=== PATIENT | female | born 1945 | race African-American/Black ===

== ENCOUNTER 2019-08-26 18:09 | Inpatient (IN) | payer MEDICARE ==
[2019-08-27] MEDS ORDERED: Magnesium Hydroxide (MOM) 30 mL UDC PO PRN (04:21)
[2019-08-27] MEDS ORDERED: Fleet Enema 135 mL RC PRN (04:21)
[2019-08-27] MEDS ORDERED: Maalox 30 mL Cup PO PRN (04:30)
[2019-08-27] MEDS ORDERED: ZINC PO SCH (09:00)
[2019-08-27] MEDS ORDERED: ASCORBATE SODIUM PO SCH (09:00)
[2019-08-27] MEDS ORDERED: [UNRECOGNIZED DRUG - OTHER] PO SCH (09:00)
[2019-08-27] MEDS ORDERED: [UNRECOGNIZED DRUG - OTHER] PO SCH (09:00)
[2019-08-27] MEDS ORDERED: PROTEIN PO SCH (09:00)
[2019-08-27] MEDS ORDERED: VIT C PO SCH (09:00)
[2019-08-27] MEDS ORDERED: AMINO ACID PO SCH (09:00)
[2019-08-27] MEDS ORDERED: ASCORBIC ACID PO SCH (09:00)
[2019-08-27] MEDS: Pantoprazole 40 mg EC Tab PO SCH ×4 (09:15→17:02)
--- NOTE | 2019-08-27 10:42 | History & Physical Pre-OP ---
DATE OF SERVICE: 08/27/2019 CHIEF COMPLAINT: Agitation. HISTORY OF PRESENT ILLNESS: This is a 74-year-old -Maldivian female who was originally admitted from [facility] and transferred to [facility] Emergency Room for medical clearance. The patient was sent in to the Emergency Room due to increase in agitation and refusal of care. Once medically cleared, the patient was transferred to [facility] for further psychiatric management. REVIEW OF SYSTEMS: GENERAL: This is a 74-year-old female. No fever, no weakness. HEAD: No headache. No dizziness. EYES: No eye pain or blurring of vision. NECK: No neck pain or nuchal rigidity. CHEST: No chest pain or palpitations. PULMONARY: No coughing or shortness of breath. GASTROINTESTINAL: No abdominal pain, no constipation, no diarrhea. MUSCULOSKELETAL: No joint pain. No muscle pain. SOCIAL HISTORY: The patient lives in a retirement facility prior to hospitalization. Denies nicotine. Denies alcohol. Denies any illicit drugs. FAMILY HISTORY: Unremarkable. SURGICAL HISTORY: Unremarkable. PSYCHIATRIC HISTORY: Includes questionable depression and bipolar disorder. PAST MEDICAL HISTORY: Includes paraplegia, neuropathy, anemia, hypertension, gastroesophageal reflux disease, anemia. PHYSICAL EXAMINATION: VITAL SIGNS: Temperature 97.6, heart rate of 82, blood pressure 140/71, respirations 20, 97% on room air. GENERAL: This is a 74-year-old female that appears as stated in no acute distress. HEENT: Head is atraumatic and normocephalic. Eyes: Bilateral conjunctivae are clear. Bilateral pupils equal, round, reactive. NECK: Supple. No JVD. CARDIOVASCULAR: S1 and S2, without murmur. PULMONARY: Clear to auscultation. GASTROINTESTINAL: Soft and nontender without guarding. Positive bowel sounds. MUSCULOSKELETAL: No clubbing. No cyanosis noted. ASSESSMENT: 1. Rule out bipolar disorder. 2. Paraplegia. 3. Hypertension. 4. Neuropathy. 5. Gastroesophageal reflux disease. 6. Anemia. PLAN: We will admit the patient to Psychiatric Unit. We will follow up with a psychiatrist to monitor the patient's condition and behavior. We will do medication reconciliation accordingly. We will put the patient on fall precautions. Treatment plans were discussed with the patient's nurse. Treatment plans were discussed with Dr. Pryor. [facility]# [id number]
[2019-08-27] MEDS ORDERED: Nystatin Cream 100,000 u/gm Cream 15 gm TP PRN (17:03)
--- NOTE | 2019-08-28 01:15 | Psychiatric Evaluation ---
DATE OF SERVICE: 08/27/2019 INITIAL PSYCHIATRIC EVALUATION The patient was seen and evaluated. The patient's chart was reviewed. This is initial psychiatric evaluation covering for Dr. Carrera. CHIEF COMPLAINT: "I am not crazy." HISTORY OF PRESENT ILLNESS: This is a 74-year-old female who was brought in here from a penitentiary, medically cleared from [facility] for increased refusal of care and agitation. 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 She is reporting that she is a better doctor because she went to medical school 3 different times and then becomes noncompliant with the interview. FAMILY PSYCHIATRIC HISTORY: Denies. SOCIAL HISTORY: Currently living in a penitentiary, but unable to redirect much more information beyond that. PAST MEDICAL HISTORY: Includes paraplegia, neuropathy, anemia, hypertension, and acid reflux. ALLERGIES TO MEDICATIONS: NKDA. CURRENT MEDICATIONS: Reconciliation reviewed which includes bisacodyl, ascorbic acid, gabapentin, hydralazine, and Ativan as needed. She is refusing all medications. She reports she is not going to take any medications. Denies illicit drug use. CURRENT MENTAL STATUS EXAMINATION: Irritable, agitated, grandiose, believing that she went to medical school 4 different times, refusing to participate in interview, guarded about thought content and thought process, slightly disorganized, poor insight, judgment and impulse control. STRENGTHS: Support system. WEAKNESSES: Poor coping skills. ESTIMATED LENGTH OF STAY: Between 5-10 days. PROGNOSIS: Fair. ASSESSMENT AND PLAN: A 74-year-old female with unspecified mood disorder, rule out dementia who presents disengaged in the interview, poor historian overall. We will continue obtaining more collateral baseline information and obtaining medical records from the penitentiary prior to initiating any medications. We will admit the patient. JOB# [id number]
[2019-08-28] MEDS: Pantoprazole 40 mg EC Tab PO SCH (06:24)
[2019-08-28] MEDS ORDERED: POLYSPORIN TP SCH (09:00)
[2019-08-28] MEDS: Nystatin Cream 100,000 u/gm Cream 15 gm TP SCH (09:45)
--- NOTE | 2019-08-28 09:54 | Progress Notes ---
DATE: SUBJECTIVE: The patient was seen and evaluated. The patient's chart reviewed. The patient is wearing vinyl gloves reporting she is a germaphobe and that also president Indu is transmitting messages to her. ASSESSMENT AND PLAN: Schizophrenia, refusing medications, delusional as evident believing that Kam Griggs is sending her messages. JOB# [id number]
--- NOTE | 2019-08-28 13:26 | Internal Medicine Prog Note ---
Internal Medicine Subjective - Subjective Patient is:: awake, verbal, in bed, agitated, confused Per staff patient has:: confused, refusing care Internal Medicine Objective - Physical Exam Vitals and I&O: Vital Signs Temp 98.1 F 08/28/19 06:51 Pulse 95 08/28/19 06:51 Resp 19 08/28/19 06:51 BP 160/78 08/28/19 06:51 Pulse Ox 98 08/28/19 06:51 Intake & Output 08/27/19 08/28/19 08/28/19 18:59 06:59 18:59 Intake Total 960 180 Balance 960 180 Weight (lbs) 188 lb 8 oz Intake: Oral 960 180 Other: # Voids 3 2 # Bowel Movements 1 0 Stool Characteristics Soft Active Medications: Current Medications Al Hydrox/Mg Hydrox/Simethicone (Maalox) 30 ml PO Q4HR PRN PRN Reason: GI DISTRESS Stop: 10/26/19 04:29 Bacitracin (Baciquent) 1 appl TP DAILY [facility] Stop: 10/28/19 08:59 Bisacodyl (Dulcolax 10 Mg Supp) 10 mg RC DAILY PRN PRN Reason: Constipation Stop: 10/26/19 19:58 Docusate Sodium (Colace) 200 mg PO DAILY [facility] Stop: 10/26/19 08:59 Last Admin: 08/28/19 10:51 Dose: Not Given Gabapentin (Neurontin) 200 mg PO Q6HR [facility] Stop: 10/26/19 05:59 Last Admin: 08/28/19 12:06 Dose: Not Given Hydralazine HCl (Apresoline) 50 mg PO Q6HR PRN PRN Reason: if SBP > 160 or DBP > 100 Stop: 10/26/19 20:03 Ibuprofen (Advil) 200 mg PO Q6HR PRN PRN Reason: Pain (Mild 1-3) Stop: 10/26/19 04:20 Lorazepam (Ativan) 0.5 mg PO Q4HR PRN; Protocol PRN Reason: agitation Stop: 09/26/19 04:29 Magnesium Hydroxide (Milk Of Magnesia) 30 ml PO HS PRN PRN Reason: Constipation Stop: 10/26/19 04:20 Nortriptyline HCl (Pamelor) 25 mg PO DAILY [facility] Stop: 10/26/19 08:59 Last Admin: 08/28/19 10:51 Dose: Not Given Nystatin (Mycostatin Cream) 0 appl TP DAILY [facility]; Protocol Stop: 10/27/19 08:59 Last Admin: 08/28/19 09:45 Dose: 1 appl Pantoprazole Sodium (Protonix) 40 mg PO 0630 [facility] Stop: 10/27/19 06:29 Last Admin: 08/28/19 06:24 Dose: Not Given Sodium Phosphate (Fleet Enema) 135 ml RC Q48HR PRN PRN Reason: Constipation Stop: 10/26/19 04:20 Zolpidem Tartrate (Ambien) 5 mg PO HSMR1 PRN PRN Reason: Insomnia Stop: 10/26/19 04:29 General: demented, NAD HEENT: NC/AT, PERRLA Neck: Supple, No JVD Lungs: other (no acute respiratory distress on RA) Cardiovascular: RRR Abdomen: soft, non-tender, non-distended Internal Medicine Assmt/Plan - Assessment Assessment: Schizoprenia Delusional Paraplegia HTN Neuropathy GERD Anemia - Plan Plan: Continue current treatment plan. Continue current medications Continue to monitor VS Monitor Diet/Nutritional support. Psych management per Psychiatry. Pain Management. PT/OT prn Safety precaution, Fall precaution, frequent nursing round. Supportive care. Continue collaborating with consulting specialists, case management and nursing team
[2019-08-29] MEDS: Pantoprazole 40 mg EC Tab PO SCH (06:14)
[2019-08-29] MEDS: Nystatin Cream 100,000 u/gm Cream 15 gm TP SCH (08:56)
--- NOTE | 2019-08-29 12:29 | Internal Medicine Prog Note ---
Internal Medicine Subjective - Subjective Service Date: 08/29/19 Patient seen and examined:: with staff Patient is:: awake, verbal, in bed, agitated, confused Patient Complaints of:: other Per staff patient has:: confused, refusing care Internal Medicine Objective - Physical Exam Vitals and I&O: Vital Signs Temp 98.2 F 08/29/19 06:10 Pulse 84 08/29/19 06:10 Resp 18 08/29/19 08:00 BP 134/65 08/29/19 06:10 Pulse Ox 96 08/28/19 14:05 Intake & Output 08/28/19 08/29/19 08/29/19 18:59 06:59 18:59 Intake Total 240 Balance 240 Intake: Oral 240 Other: # Voids 4 2 # Bowel Movements 0 Stool Characteristics Soft Active Medications: Current Medications Al Hydrox/Mg Hydrox/Simethicone (Maalox) 30 ml PO Q4HR PRN PRN Reason: GI DISTRESS Stop: 10/26/19 04:29 Bacitracin (Baciquent) 1 appl TP DAILY [facility] Stop: 10/28/19 08:59 Last Admin: 08/29/19 08:56 Dose: Not Given Bisacodyl (Dulcolax 10 Mg Supp) 10 mg RC DAILY PRN PRN Reason: Constipation Stop: 10/26/19 19:58 Docusate Sodium (Colace) 200 mg PO DAILY [facility] Stop: 10/26/19 08:59 Last Admin: 08/29/19 08:56 Dose: Not Given Gabapentin (Neurontin) 200 mg PO Q6HR [facility] Stop: 10/26/19 05:59 Last Admin: 08/29/19 12:21 Dose: Not Given Hydralazine HCl (Apresoline) 50 mg PO Q6HR PRN PRN Reason: if SBP > 160 or DBP > 100 Stop: 10/26/19 20:03 Ibuprofen (Advil) 200 mg PO Q6HR PRN PRN Reason: Pain (Mild 1-3) Stop: 10/26/19 04:20 Lorazepam (Ativan) 0.5 mg PO Q4HR PRN; Protocol PRN Reason: agitation Stop: 09/26/19 04:29 Magnesium Hydroxide (Milk Of Magnesia) 30 ml PO HS PRN PRN Reason: Constipation Stop: 10/26/19 04:20 Nortriptyline HCl (Pamelor) 25 mg PO DAILY [facility] Stop: 10/26/19 08:59 Last Admin: 08/29/19 08:56 Dose: Not Given Nystatin (Mycostatin Cream) 0 appl TP DAILY [facility]; Protocol Stop: 10/27/19 08:59 Last Admin: 08/29/19 08:56 Dose: Not Given Pantoprazole Sodium (Protonix) 40 mg PO 0630 [facility] Stop: 10/27/19 06:29 Last Admin: 08/29/19 06:14 Dose: Not Given Sodium Phosphate (Fleet Enema) 135 ml RC Q48HR PRN PRN Reason: Constipation Stop: 10/26/19 04:20 Zolpidem Tartrate (Ambien) 5 mg PO HSMR1 PRN PRN Reason: Insomnia Stop: 10/26/19 04:29 Physical Exam: Patient is very agitated and confused. General: demented, NAD HEENT: NC/AT, PERRLA Neck: Supple, No JVD Lungs: other (no acute respiratory distress on RA) Cardiovascular: RRR Abdomen: soft, non-tender, non-distended Extremities: clear Neurological: no change Internal Medicine Assmt/Plan - Assessment Assessment: Increased Agitation. History of Bipolar disorder. History of Depression. History of Paraplegia. History of Neuropathy. History of Anemia. History of Gerd. - Plan Plan: Continue present meds as directed. Monitor vitals and labs. Pain management. Monitor diet and nutritional support. Fall precaution. Continue current treatment plan as ordered. Nutritional Asmnt/Malnutr-PDOC - Dietary Evaluation Malnutrition Findings (Please click <Entered> for more info): see labs.
--- NOTE | 2019-08-30 00:30 | Progress Notes ---
DATE: 08/29/2019 SUBJECTIVE: A 74-year-old female coming in from a longterm. The patient stating to me that she has been to medical school. She is a doctor, trained by the best doctors, making some odd statements, difficult to believe statements, rambling nonsensically, stating she wants to live with her family in [place], has no idea why she is here, loud, difficult to really assess. Medications were noted. ASSESSMENT: The patient seems manic, bizarre ideations, currently on a small dose of Pamelor, originally brought to the hospital because of her delusions, bizarre ideations and thinking. Apparently also agitated. I have started her on a small dose of Seroquel. JOB# [id number]
[2019-08-30] MEDS: Pantoprazole 40 mg EC Tab PO SCH (06:38)
[2019-08-30] MEDS: Nystatin Cream 100,000 u/gm Cream 15 gm TP SCH (08:50)
--- NOTE | 2019-08-30 09:25 | Progress Notes ---
DATE: 08/30/2019 SUBJECTIVE: The patient in the hospital, slept for about 6 hours, preoccupied. Poor orientation, yelling, very unpredictable. Was yelling at me yesterday, very difficult to control her thought processes, mostly isolative to self. Allowing treatment today. No overt agitation this morning. Strongly refusing medications at times. Currently on dosing of Seroquel. PLAN: We will continue to monitor. We will attempt to encourage better med compliance. We will monitor closely. JOB# [id number]
--- NOTE | 2019-08-30 16:35 | Internal Medicine Prog Note ---
Internal Medicine Subjective - Subjective Service Date: 08/30/19 Patient is:: awake, verbal, in bed, agitated, confused Patient Complaints of:: other Per staff patient has:: confused, refusing care Internal Medicine Objective - Physical Exam Vitals and I&O: Vital Signs Temp 98.1 F 08/30/19 14:00 Pulse 85 08/30/19 14:00 Resp 20 08/30/19 14:00 BP 129/67 08/30/19 14:00 Pulse Ox 99 08/30/19 14:00 Intake & Output 08/29/19 08/30/19 08/30/19 18:59 06:59 18:59 Intake Total 1100 240 Output Total 1 Balance 1100 239 Intake: Oral 1100 240 Output: Urine/Stool Mix 1 Other: # Voids 2 2 # Bowel Movements 0 0 Active Medications: Current Medications Al Hydrox/Mg Hydrox/Simethicone (Maalox) 30 ml PO Q4HR PRN PRN Reason: GI DISTRESS Stop: 10/26/19 04:29 Bacitracin (Baciquent) 1 appl TP DAILY [facility] Stop: 10/28/19 08:59 Last Admin: 08/30/19 08:49 Dose: Not Given Bisacodyl (Dulcolax 10 Mg Supp) 10 mg RC DAILY PRN PRN Reason: Constipation Stop: 10/26/19 19:58 Docusate Sodium (Colace) 200 mg PO DAILY [facility] Stop: 10/26/19 08:59 Last Admin: 08/30/19 08:49 Dose: Not Given Gabapentin (Neurontin) 200 mg PO Q6HR [facility] Stop: 10/26/19 05:59 Last Admin: 08/30/19 13:02 Dose: Not Given Hydralazine HCl (Apresoline) 50 mg PO Q6HR PRN PRN Reason: if SBP > 160 or DBP > 100 Stop: 10/26/19 20:03 Ibuprofen (Advil) 200 mg PO Q6HR PRN PRN Reason: Pain (Mild 1-3) Stop: 10/26/19 04:20 Lorazepam (Ativan) 0.5 mg PO Q4HR PRN; Protocol PRN Reason: agitation Stop: 09/26/19 04:29 Magnesium Hydroxide (Milk Of Magnesia) 30 ml PO HS PRN PRN Reason: Constipation Stop: 10/26/19 04:20 Nortriptyline HCl (Pamelor) 25 mg PO DAILY [facility] Stop: 10/26/19 08:59 Last Admin: 08/30/19 08:50 Dose: Not Given Nystatin (Mycostatin Cream) 0 appl TP DAILY [facility]; Protocol Stop: 10/27/19 08:59 Last Admin: 08/30/19 08:50 Dose: Not Given Pantoprazole Sodium (Protonix) 40 mg PO 0630 [facility] Stop: 10/27/19 06:29 Last Admin: 08/30/19 06:38 Dose: Not Given Quetiapine Fumarate (Seroquel) 25 mg PO HS [facility]; Protocol Stop: 10/28/19 20:59 Sodium Phosphate (Fleet Enema) 135 ml RC Q48HR PRN PRN Reason: If MOM & Dulcolax ineffective. Stop: 10/26/19 04:20 Zolpidem Tartrate (Ambien) 5 mg PO HSMR1 PRN PRN Reason: Insomnia Stop: 10/26/19 04:29 General: demented, NAD HEENT: NC/AT, PERRLA Neck: Supple, No JVD Lungs: other (no acute respiratory distress on RA) Cardiovascular: RRR Abdomen: soft, non-tender, non-distended Extremities: clear Neurological: no change Internal Medicine Assmt/Plan - Assessment Assessment: Schizoprenia Delusional Paraplegia HTN Neuropathy GERD Anemia - Plan Plan: Continue current treatment plan. Continue current medications Continue to monitor VS Monitor Diet/Nutritional support. Psych management per Psychiatry. Pain Management. PT/OT prn Safety precaution, Fall precaution, frequent nursing round. Supportive care. Continue collaborating with consulting specialists, case management and nursing team
[2019-08-31] MEDS: Pantoprazole 40 mg EC Tab PO SCH (06:27)
[2019-08-31] MEDS: Nystatin Cream 100,000 u/gm Cream 15 gm TP SCH (09:22)
--- NOTE | 2019-08-31 13:29 | Internal Medicine Prog Note ---
Internal Medicine Subjective - Subjective Service Date: 08/31/19 Patient seen and examined:: with staff Patient is:: awake, verbal, in bed, agitated, confused Patient Complaints of:: other Per staff patient has:: no adverse event, confused, refusing care Internal Medicine Objective - Physical Exam Vitals and I&O: Vital Signs Temp 97.9 F 08/31/19 06:14 Pulse 88 08/31/19 06:14 Resp 19 08/31/19 06:14 BP 127/65 08/31/19 06:14 Pulse Ox 97 08/31/19 06:14 Intake & Output 08/30/19 08/31/19 08/31/19 18:59 06:59 18:59 Intake Total 1200 120 Balance 1200 120 Intake: Oral 1200 120 Other: # Voids 2 3 # Bowel Movements 0 0 Active Medications: Current Medications Al Hydrox/Mg Hydrox/Simethicone (Maalox) 30 ml PO Q4HR PRN PRN Reason: GI DISTRESS Stop: 10/26/19 04:29 Bacitracin (Baciquent) 1 appl TP DAILY [facility] Stop: 10/28/19 08:59 Last Admin: 08/31/19 09:23 Dose: Not Given Bisacodyl (Dulcolax 10 Mg Supp) 10 mg RC DAILY PRN PRN Reason: Constipation Stop: 10/26/19 19:58 Docusate Sodium (Colace) 200 mg PO DAILY [facility] Stop: 10/26/19 08:59 Last Admin: 08/31/19 09:51 Dose: Not Given Gabapentin (Neurontin) 200 mg PO Q6HR [facility] Stop: 10/26/19 05:59 Last Admin: 08/31/19 12:57 Dose: Not Given Hydralazine HCl (Apresoline) 50 mg PO Q6HR PRN PRN Reason: if SBP > 160 or DBP > 100 Stop: 10/26/19 20:03 Ibuprofen (Advil) 200 mg PO Q6HR PRN PRN Reason: Pain (Mild 1-3) Stop: 10/26/19 04:20 Lorazepam (Ativan) 0.5 mg PO Q4HR PRN; Protocol PRN Reason: agitation Stop: 09/26/19 04:29 Magnesium Hydroxide (Milk Of Magnesia) 30 ml PO HS PRN PRN Reason: Constipation Stop: 10/26/19 04:20 Nortriptyline HCl (Pamelor) 25 mg PO DAILY [facility] Stop: 10/26/19 08:59 Last Admin: 08/31/19 09:51 Dose: Not Given Nystatin (Mycostatin Cream) 0 appl TP DAILY [facility]; Protocol Stop: 10/27/19 08:59 Last Admin: 08/31/19 09:22 Dose: Not Given Pantoprazole Sodium (Protonix) 40 mg PO 0630 [facility] Stop: 10/27/19 06:29 Last Admin: 08/31/19 06:27 Dose: Not Given Quetiapine Fumarate (Seroquel) 25 mg PO HS [facility]; Protocol Stop: 10/28/19 20:59 Last Admin: 08/30/19 20:54 Dose: Not Given Sodium Phosphate (Fleet Enema) 135 ml RC Q48HR PRN PRN Reason: If MOM & Dulcolax ineffective. Stop: 10/26/19 04:20 Zolpidem Tartrate (Ambien) 5 mg PO HSMR1 PRN PRN Reason: Insomnia Stop: 10/26/19 04:29 Physical Exam: Patient needs to be closely monitored, patient is very aggressive and easily frustrated. General: demented, NAD HEENT: NC/AT, PERRLA Neck: Supple, No JVD Lungs: other (no acute respiratory distress on RA) Cardiovascular: RRR Abdomen: soft, non-tender, non-distended Extremities: clear Neurological: no change Internal Medicine Assmt/Plan - Assessment Assessment: Increased Agitation. History of Bipolar disorder. History of Depression. History of Paraplegia. History of Neuropathy. History of Anemia. History of Gerd. - Plan Plan: Continue present meds as directed. Monitor vitals and labs. Pain management. Monitor diet and nutritional support. Fall precaution. Continue current treatment plan as ordered. Nutritional Asmnt/Malnutr-PDOC - Dietary Evaluation Malnutrition Findings (Please click <Entered> for more info): please see orders.
[2019-08-31] MEDS: Eucerin Cream 16 oz Jar TP SCH (18:00)
--- NOTE | 2019-08-31 22:55 | Progress Notes ---
DATE: 08/31/[address] Carrera. Case was discussed with staff of the patient, reviewed records. This is a 74-year-old female who on 08/27/2019 brought from a nursing facility, came from [facility] because of refusal of care, agitation. The patient reported that she went to medical school 3 different times. 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 She was a poor historian, extremely angry, irritable, refusing to be interviewed by the doctor. She said she lives in [place], does not need to be in this area. Does not need to be here. However, she came from a nursing facility. The patient continues to be unable to make safe plan for self-care. Continues to be agitated, yelling at times, isolating herself. She is on Seroquel, she has been refusing to take it. No side effects with the medication so far. She is also on gabapentin 200 mg every 6 hours, Ativan as needed and Pamelor 25 mg daily and Seroquel 25 mg at bedtime. No side effects with the medication. I will try to continue to encourage the patient to take medication. We will continue to work with the patient in group therapy, milieu therapy, and adjust medication as needed. JOB# [id number]
[2019-09-01] MEDS: Pantoprazole 40 mg EC Tab PO SCH ×2 (06:29→06:30)
[2019-09-01] MEDS: Eucerin Cream 16 oz Jar TP SCH ×2 (09:09→17:19)
[2019-09-01] MEDS: Nystatin Cream 100,000 u/gm Cream 15 gm TP SCH (09:09)
--- NOTE | 2019-09-01 16:20 | Progress Notes ---
DATE: 09/01/2019 Case was discussed with staff of the patient, reviewed records. The patient continues to have poor insight, continues to be unpredictable, impulsive, refusing medication, unable to tell me exact reason why she is not taking her medication. She believes she should be here as she lives in [place] and this is too far for her. Very poor insight. Unable tell me what medication she will take or why she is not taking the medication and we will try to see if she needs to be reised. We will continue outpatient group therapy, milieu therapy, and adjust medications as needed. JOB# [id number]
--- NOTE | 2019-09-01 17:25 | Internal Medicine Prog Note ---
Internal Medicine Subjective - Subjective Service Date: 09/01/19 Patient is:: awake, verbal, in bed, agitated, confused Patient Complaints of:: other Per staff patient has:: no adverse event, confused, refusing care Internal Medicine Objective - Physical Exam Vitals and I&O: Vital Signs Temp 97.7 F 09/01/19 14:00 Pulse 76 09/01/19 14:00 Resp 20 09/01/19 14:00 BP 131/78 09/01/19 14:00 Pulse Ox 98 09/01/19 14:00 Intake & Output 08/31/19 09/01/19 09/01/19 18:59 06:59 18:59 Intake Total 1080 240 Balance 1080 240 Intake: Oral 960 240 Other 120 Other: # Voids 3 2 # Bowel Movements 0 0 Active Medications: Current Medications Al Hydrox/Mg Hydrox/Simethicone (Maalox) 30 ml PO Q4HR PRN PRN Reason: GI DISTRESS Stop: 10/26/19 04:29 Bacitracin (Baciquent) 1 appl TP DAILY [facility] Stop: 10/28/19 08:59 Last Admin: 09/01/19 09:09 Dose: Not Given Bisacodyl (Dulcolax 10 Mg Supp) 10 mg RC DAILY PRN PRN Reason: Constipation Stop: 10/26/19 19:58 Docusate Sodium (Colace) 200 mg PO DAILY [facility] Stop: 10/26/19 08:59 Last Admin: 09/01/19 09:09 Dose: Not Given Gabapentin (Neurontin) 200 mg PO Q6HR [facility] Stop: 10/26/19 05:59 Last Admin: 09/01/19 17:04 Dose: Not Given Hydralazine HCl (Apresoline) 50 mg PO Q6HR PRN PRN Reason: if SBP > 160 or DBP > 100 Stop: 10/26/19 20:03 Ibuprofen (Advil) 200 mg PO Q6HR PRN PRN Reason: Pain (Mild 1-3) Stop: 10/26/19 04:20 Lorazepam (Ativan) 0.5 mg PO Q4HR PRN; Protocol PRN Reason: agitation Stop: 09/26/19 04:29 Magnesium Hydroxide (Milk Of Magnesia) 30 ml PO HS PRN PRN Reason: Constipation Stop: 10/26/19 04:20 Multi-Ingredient Cream (Eucerin Cream) 1 appl TP BID [facility] Stop: 10/30/19 16:59 Last Admin: 09/01/19 17:19 Dose: Not Given Nortriptyline HCl (Pamelor) 25 mg PO DAILY [facility] Stop: 10/26/19 08:59 Last Admin: 09/01/19 09:09 Dose: Not Given Nystatin (Mycostatin Cream) 0 appl TP DAILY [facility]; Protocol Stop: 10/27/19 08:59 Last Admin: 09/01/19 09:09 Dose: Not Given Pantoprazole Sodium (Protonix) 40 mg PO 0630 [facility] Stop: 10/27/19 06:29 Last Admin: 09/01/19 06:30 Dose: Not Given Quetiapine Fumarate (Seroquel) 25 mg PO HS [facility]; Protocol Stop: 10/28/19 20:59 Last Admin: 08/31/19 21:15 Dose: Not Given Sodium Phosphate (Fleet Enema) 135 ml RC Q48HR PRN PRN Reason: If MOM & Dulcolax ineffective. Stop: 10/26/19 04:20 Zolpidem Tartrate (Ambien) 5 mg PO HSMR1 PRN PRN Reason: Insomnia Stop: 10/26/19 04:29 General: demented, NAD HEENT: NC/AT, PERRLA Neck: Supple, No JVD Lungs: other (no acute respiratory distress on RA) Cardiovascular: RRR Abdomen: soft, non-tender, non-distended Extremities: clear Neurological: no change Internal Medicine Assmt/Plan - Assessment Assessment: Schizoprenia Delusional Paraplegia HTN Neuropathy GERD Anemia - Plan Plan: Continue current treatment plan. Continue current medications Continue to monitor VS Monitor Diet/Nutritional support. Psych management per Psychiatry. Pain Management. PT/OT prn Safety precaution, Fall precaution, frequent nursing round. Supportive care. Continue collaborating with consulting specialists, case management and nursing team Nutritional Asmnt/Malnutr-PDOC - Dietary Evaluation Malnutrition Findings (Please click <Entered> for more info): Nutritional Asmnt/Malnutrition Start: 08/31/19 14: 01 Text: Status: Complete Freq: Protocol: Document 08/31/19 14:01 CAROLYN (Rec: 08/31/19 14:09 CAROLYN [email or web address]) Nutritional Asmnt/Malnutrition Patient General Information Nutritional Screening Moderate Risk Diagnosis Psychosis Pertinent Medical Hx/Surgical Hx GERD, Paraplegia, Neuropathy, Anemia, HTN Subjective Information Pt is a 74-year-old female admitted on d/t increased agitation and refusal of care. Pt is eating an estimated 53% (average) of meals since admit date (x4 days) Per Meal/Nutrition Activity Record. Dietary is currently providing an estimated 2200 kcals and 115 gm Pro, per Pt PO intake this is providing an estimated 1166 kcals and 60gm Pro to meet 70 % kcal and 92% Pro needs. Visited pt in room after lunch , pt ate 100% of lunch and stated she was pleased with the food. She asked about salt on her tray, I provided education on her diet and why we are not putting salt on her tray. Pt stated she has not gotten her dentures yet, but the chopped texture we have been providing her is sufficient and she has no issues eating. Anthropometrics HT: 58 WT: 188 LB (85.45 kg) ABW:145 LB (65.68 kg) IBW: 130 LB (59.18 kg), IBW-7% for paraplegia BMI: 28.66 (Overweight) GI/ Skin Integrity GI: Soft, Non-tender, GERD BM: 08/30 x1 I/O: 1320/Not Noted Skin: Dryness, Area of Concern , LT lower leon x3 scabs, RT abdominal fold open area [place]: 13 Diet Order: Cardiac Estimated Energy Needs: ( Geriatric, ABW, Paraplegic) 5937-7129 kcals (25-28 kcals/ kg) 65-80g Pro (1.0-1.2 g/kg) 7248-1536 ml (25-30 ml/kg) Current Diet Order/ Nutrition Support Cardiac Pertinent Medications Dulcolax (PRN), Colace, MOM ( PRN), Protonix, Fleet Enema ( PRN) Pertinent Labs 08/26: Glucose 138, Alb 3.3, Tags 184, Chol 303, LDL 208, HDL 48 Nutritional Hx/Data Height 5 ft 8 in Height (Calculated Centimeters) 172.7 Current Weight (lbs) 188 lb Weight (Calculated Kilograms) 85.3 Weight (Calculated Grams) 77402.4 [place] Body Weight 130 LB (59.18 kg) % [place] Body Weight 145 Body Mass Index (BMI) 28.5 Weight Status Overweight GI Symptoms GI Symptoms None Last BM 08/30 x1 Skin Integrity/Comment: Skin: Dryness, Area of Concern , LT lower [place]on x3 scabs, RT abdominal fold open area [place]: 13 Current %PO Fair (50-74%) Estimated Nutritional Goals BEE in Kcals: Using Current wt Calories/Kcals/Kg 25-28 Kcals Calculated 6456-7754 Protein: Using Current wt Protein g/k.0-1.2 Protein Calculated 65-80 Fluid: ml 3493-6225 ml (25-30 ml/kg) Nutritional Problem 1. Problem Problem Altered nutrition related labs Etiology r/t pathophysiological causes Signs/Symptoms: aeb labs (08/26) Glucose 138, Alb 3.3, Tags 184, Chol 303, LDL 208, HDL 48 and Diet Rx Cardiac. Intervention/Recommendation Comments Continue Cardiac diet as tolerated. Expected Outcomes/Goals Expected Outcomes/Goals 1.PO intake to continue to meet 75% of estimated nutritional needs. 2.Monitor PO intake, wt, nutrition related labs, and skin integrity to trend WNL. 3.F/U as low risk in 7-10 days , 09/07-09/10
[2019-09-02] MEDS: Pantoprazole 40 mg EC Tab PO SCH (06:39)
[2019-09-02] MEDS: Eucerin Cream 16 oz Jar TP SCH ×2 (08:58→17:17)
[2019-09-02] MEDS: Nystatin Cream 100,000 u/gm Cream 15 gm TP SCH (08:59)
--- NOTE | 2019-09-02 14:37 | Internal Medicine Prog Note ---
Internal Medicine Subjective - Subjective Service Date: 09/02/19 Patient seen and examined:: with staff Patient is:: awake, verbal, in bed, agitated, confused Patient Complaints of:: other Per staff patient has:: no adverse event, confused, refusing care Internal Medicine Objective - Physical Exam Vitals and I&O: Vital Signs Temp 97.8 F 09/02/19 06:38 Pulse 63 09/02/19 06:38 Resp 18 09/02/19 06:38 BP 126/73 09/02/19 06:38 Pulse Ox 97 09/02/19 06:38 Intake & Output 09/01/19 09/02/19 09/02/19 18:59 06:59 18:59 Intake Total 1000 120 Balance 1000 120 Intake: Oral 1000 120 Other: # Voids 3 3 # Bowel Movements 1 Active Medications: Current Medications Al Hydrox/Mg Hydrox/Simethicone (Maalox) 30 ml PO Q4HR PRN PRN Reason: GI DISTRESS Stop: 10/26/19 04:29 Bacitracin (Baciquent) 1 appl TP DAILY [facility] Stop: 10/28/19 08:59 Last Admin: 09/02/19 08:58 Dose: Not Given Bisacodyl (Dulcolax 10 Mg Supp) 10 mg RC DAILY PRN PRN Reason: Constipation Stop: 10/26/19 19:58 Docusate Sodium (Colace) 200 mg PO DAILY [facility] Stop: 10/26/19 08:59 Last Admin: 09/02/19 08:59 Dose: Not Given Gabapentin (Neurontin) 200 mg PO Q6HR [facility] Stop: 10/26/19 05:59 Last Admin: 09/02/19 13:19 Dose: Not Given Hydralazine HCl (Apresoline) 50 mg PO Q6HR PRN PRN Reason: if SBP > 160 or DBP > 100 Stop: 10/26/19 20:03 Ibuprofen (Advil) 200 mg PO Q6HR PRN PRN Reason: Pain (Mild 1-3) Stop: 10/26/19 04:20 Lorazepam (Ativan) 0.5 mg PO Q4HR PRN; Protocol PRN Reason: agitation Stop: 09/26/19 04:29 Magnesium Hydroxide (Milk Of Magnesia) 30 ml PO HS PRN PRN Reason: Constipation Stop: 10/26/19 04:20 Multi-Ingredient Cream (Eucerin Cream) 1 appl TP BID [facility] Stop: 10/30/19 16:59 Last Admin: 09/02/19 08:58 Dose: Not Given Nortriptyline HCl (Pamelor) 25 mg PO DAILY [facility] Stop: 10/26/19 08:59 Last Admin: 09/02/19 08:59 Dose: Not Given Nystatin (Mycostatin Cream) 0 appl TP DAILY [facility]; Protocol Stop: 10/27/19 08:59 Last Admin: 09/02/19 08:59 Dose: Not Given Pantoprazole Sodium (Protonix) 40 mg PO 0630 [facility] Stop: 10/27/19 06:29 Last Admin: 09/02/19 06:39 Dose: Not Given Quetiapine Fumarate (Seroquel) 25 mg PO HS [facility]; Protocol Stop: 10/28/19 20:59 Last Admin: 09/01/19 21:26 Dose: Not Given Sodium Phosphate (Fleet Enema) 135 ml RC Q48HR PRN PRN Reason: If MOM & Dulcolax ineffective. Stop: 10/26/19 04:20 Zolpidem Tartrate (Ambien) 5 mg PO HSMR1 PRN PRN Reason: Insomnia Stop: 10/26/19 04:29 Physical Exam: Patient needs to be closely monitored, patient is very impulsive, irritable, easily frustrated, refusing to take medications. General: demented, NAD HEENT: NC/AT, PERRLA Neck: Supple, No JVD Lungs: other (no acute respiratory distress on RA) Cardiovascular: RRR Abdomen: soft, non-tender, non-distended Extremities: clear Neurological: no change Internal Medicine Assmt/Plan - Assessment Assessment: Increased Agitation. History of Bipolar disorder. History of Depression. History of Paraplegia. History of Neuropathy. History of Anemia. History of Gerd. - Plan Plan: Continue present meds as directed. Monitor vitals and labs. Pain management. Monitor diet and nutritional support. Fall precaution. Continue current treatment plan as ordered. Nutritional Asmnt/Malnutr-PDOC - Dietary Evaluation Malnutrition Findings (Please click <Entered> for more info): Nutritional Asmnt/Malnutrition Start: 08/31/19 14: 01 Text: Status: Complete Freq: Protocol: Document 08/31/19 14:01 CAROLYN (Rec: 08/31/19 14:09 CAROLYN [email or web address]) Nutritional Asmnt/Malnutrition Patient General Information Nutritional Screening Moderate Risk Diagnosis Psychosis Pertinent Medical Hx/Surgical Hx GERD, Paraplegia, Neuropathy, Anemia, HTN Subjective Information Pt is a 74-year-old female admitted on d/t increased agitation and refusal of care. Pt is eating an estimated 53% (average) of meals since admit date (x4 days) Per Meal/Nutrition Activity Record. Dietary is currently providing an estimated 2200 kcals and 115 gm Pro, per Pt PO intake this is providing an estimated 1166 kcals and 60gm Pro to meet 70 % kcal and 92% Pro needs. Visited pt in room after lunch , pt ate 100% of lunch and stated she was pleased with the food. She asked about salt on her tray, I provided education on her diet and why we are not putting salt on her tray. Pt stated she has not gotten her dentures yet, but the chopped texture we have been providing her is sufficient and she has no issues eating. Anthropometrics HT: 58 WT: 188 LB (85.45 kg) ABW:145 LB (65.68 kg) IBW: 130 LB (59.18 kg), IBW-7% for paraplegia BMI: 28.66 (Overweight) GI/ Skin Integrity GI: Soft, Non-tender, GERD BM: 08/30 x1 I/O: 1320/Not Noted Skin: Dryness, Area of Concern , LT lower [place] x3 scabs, RT abdominal fold open area [place]: 13 Diet Order: Cardiac Estimated Energy Needs: ( Geriatric, ABW, Paraplegic) 7927-6987 kcals (25-28 kcals/ kg) 65-80g Pro (1.0-1.2 g/kg) 2512-9864 ml (25-30 ml/kg) Current Diet Order/ Nutrition Support Cardiac Pertinent Medications Dulcolax (PRN), Colace, MOM ( PRN), Protonix, Fleet Enema ( PRN) Pertinent Labs 08/26: Glucose 138, Alb 3.3, Tags 184, Chol 303, LDL 208, HDL 48 Nutritional Hx/Data Height 1.73 m Height (Calculated Centimeters) 172.7 Current Weight (lbs) 85.275 kg Weight (Calculated Kilograms) 85.3 Weight (Calculated Grams) 63241.4 [place] Body Weight 130 LB (59.18 kg) % [place] Body Weight 145 Body Mass Index (BMI) 28.5 Weight Status Overweight GI Symptoms GI Symptoms None Last BM 08/30 x1 Skin Integrity/Comment: Skin: Dryness, Area of Concern , LT lower [place]on x3 scabs, RT abdominal fold open area [place]: 13 Current %PO Fair (50-74%) Estimated Nutritional Goals BEE in Kcals: Using Current wt Calories/Kcals/Kg 25-28 Kcals Calculated 9637-7292 Protein: Using Current wt Protein g/k.0-1.2 Protein Calculated 65-80 Fluid: ml 1940-0558 ml (25-30 ml/kg) Nutritional Problem 1. Problem Problem Altered nutrition related labs Etiology r/t pathophysiological causes Signs/Symptoms: aeb labs (08/26) Glucose 138, Alb 3.3, Tags 184, Chol 303, LDL 208, HDL 48 and Diet Rx Cardiac. Intervention/Recommendation Comments Continue Cardiac diet as tolerated. Expected Outcomes/Goals Expected Outcomes/Goals 1.PO intake to continue to meet 75% of estimated nutritional needs. 2.Monitor PO intake, wt, nutrition related labs, and skin integrity to trend WNL. 3.F/U as low risk in 7-10 days , 09/07-09/10
--- NOTE | 2019-09-03 03:01 | Progress Notes ---
DATE: 09/02/[address] Carrera. Case was discussed with staff of the patient, reviewed records. The staff reports she is not taking any medications. I tried to talk to her about it, she was very angry, irritable. She said she only take from her doctor, that Dr. Carrera or I are not taking care of her. She is from [place]. I tried to explain to her how she was admitted here, but she would not take it, very angry, irritable, hard to redirect and give me any other reason why she is not taking her medication. She reports she need to be with her doctor. She is sleeping well. She has been able to feed herself, isolating herself, staying in bed, angry, irritable and will continue outpatient group therapy, milieu therapy, and adjust medications as needed. JOB# [id number] RAGHU
[2019-09-03] MEDS: Pantoprazole 40 mg EC Tab PO SCH (06:11)
[2019-09-03] MEDS: Eucerin Cream 16 oz Jar TP SCH ×2 (09:13→16:48)
[2019-09-03] MEDS: Nystatin Cream 100,000 u/gm Cream 15 gm TP SCH (09:14)
--- NOTE | 2019-09-03 10:38 | Progress Notes ---
DATE: 09/03/2019 SUBJECTIVE: The patient was seen in her room. The patient is awake, alert, irritable, easily gets frustrated and guarded, episodes of anxiety, poor impulse control. Per report, the patient has been refusing to take medications. Otherwise, the patient appears to be in no acute distress. OBJECTIVE: VITAL SIGNS: Temperature 97.8, heart rate of 85, blood pressure 146/78, respirations 18, 99% on room air. HEENT: Head is atraumatic and normocephalic. Eyes: Bilateral conjunctivae are clear. Bilateral pupils are equally round and reactive. NECK: Supple. No JVD. CARDIOVASCULAR: S1 and S2, without murmur. PULMONARY: Clear to auscultation. GASTROINTESTINAL: Soft and nontender without guarding. Positive bowel sounds. MUSCULOSKELETAL: No clubbing, no cyanosis noted. ASSESSMENT: 1. Mood disorder. 2. Paraplegia. 3. Hypertension. 4. Neuropathy. 5. Gastroesophageal reflux disease. 6. Anemia. PLAN: We will continue to keep the patient inpatient to Psychiatric Unit. We will follow up with a psychiatrist to monitor the patient's condition and behavior. We will put the patient on fall precautions. Treatment plans were discussed with the patient's nurse. Treatment plans were discussed with Dr. Pryor. [facility]# [id number]
--- NOTE | 2019-09-03 22:03 | Progress Notes ---
DATE: 09/03/2019 Case was discussed with staff of the patient, reviewed records. The patient continues to refuse to participate in meaningful conversation, refuses medication, unable to tell me why she was admitted,angry agitated,claims i am not authorized to give her any medication. She said she only can take it from her doctor. She will need to leave this weekend. We will continue outpatient group therapy, milieu therapy, and adjust medication as needed. JOB# [id number] [facility]
[2019-09-04] MEDS: Pantoprazole 40 mg EC Tab PO SCH (06:48)
[2019-09-04] MEDS: Nystatin Cream 100,000 u/gm Cream 15 gm TP SCH (10:00)
[2019-09-04] MEDS: Eucerin Cream 16 oz Jar TP SCH ×2 (10:00→17:36)
--- NOTE | 2019-09-04 10:45 | Internal Medicine Prog Note ---
Internal Medicine Subjective - Subjective Patient is:: awake, verbal, in bed, agitated, confused Patient Complaints of:: other Per staff patient has:: no adverse event, confused, refusing care, other (still angry and refuses medications) Internal Medicine Objective - Physical Exam Vitals and I&O: Vital Signs Temp 98.0 F 09/04/19 06:27 Pulse 80 09/04/19 06:27 Resp 20 09/04/19 06:27 BP 143/79 09/04/19 06:27 Pulse Ox 97 09/04/19 06:27 Intake & Output 09/03/19 09/04/19 09/04/19 18:59 06:59 18:59 Intake Total 1100 240 Output Total 1 Balance 1100 239 Intake: Oral 760 240 Other 340 Output: Urine/Stool Mix 1 Other: # Voids 3 1 # Bowel Movements 0 Active Medications: Current Medications Al Hydrox/Mg Hydrox/Simethicone (Maalox) 30 ml PO Q4HR PRN PRN Reason: GI DISTRESS Stop: 10/26/19 04:29 Bacitracin (Baciquent) 1 appl TP DAILY [facility] Stop: 10/28/19 08:59 Last Admin: 09/04/19 10:00 Dose: Not Given Bisacodyl (Dulcolax 10 Mg Supp) 10 mg RC DAILY PRN PRN Reason: Constipation Stop: 10/26/19 19:58 Docusate Sodium (Colace) 200 mg PO DAILY [facility] Stop: 10/26/19 08:59 Last Admin: 09/04/19 10:00 Dose: Not Given Gabapentin (Neurontin) 200 mg PO Q6HR [facility] Stop: 10/26/19 05:59 Last Admin: 09/04/19 06:48 Dose: Not Given Hydralazine HCl (Apresoline) 50 mg PO Q6HR PRN PRN Reason: if SBP > 160 or DBP > 100 Stop: 10/26/19 20:03 Ibuprofen (Advil) 200 mg PO Q6HR PRN PRN Reason: Pain (Mild 1-3) Stop: 10/26/19 04:20 Lorazepam (Ativan) 0.5 mg PO Q4HR PRN; Protocol PRN Reason: agitation Stop: 09/26/19 04:29 Magnesium Hydroxide (Milk Of Magnesia) 30 ml PO HS PRN PRN Reason: Constipation Stop: 10/26/19 04:20 Multi-Ingredient Cream (Eucerin Cream) 1 appl TP BID [facility] Stop: 10/30/19 16:59 Last Admin: 09/04/19 10:00 Dose: Not Given Nortriptyline HCl (Pamelor) 25 mg PO DAILY [facility] Stop: 10/26/19 08:59 Last Admin: 09/04/19 10:00 Dose: Not Given Nystatin (Mycostatin Cream) 0 appl TP DAILY [facility]; Protocol Stop: 10/27/19 08:59 Last Admin: 09/04/19 10:00 Dose: Not Given Pantoprazole Sodium (Protonix) 40 mg PO 0630 [facility] Stop: 10/27/19 06:29 Last Admin: 09/04/19 06:48 Dose: Not Given Quetiapine Fumarate (Seroquel) 25 mg PO HS [facility]; Protocol Stop: 10/28/19 20:59 Last Admin: 09/03/19 21:30 Dose: Not Given Sodium Phosphate (Fleet Enema) 135 ml RC Q48HR PRN PRN Reason: If MOM & Dulcolax ineffective. Stop: 10/26/19 04:20 Zolpidem Tartrate (Ambien) 5 mg PO HSMR1 PRN PRN Reason: Insomnia Stop: 10/26/19 04:29 General: demented, NAD HEENT: NC/AT, PERRLA Neck: Supple, No JVD Lungs: other (no acute respiratory distress on RA) Cardiovascular: RRR Abdomen: soft, non-tender, non-distended Extremities: clear Neurological: no change Internal Medicine Assmt/Plan - Assessment Assessment: Schizoprenia Delusional Paraplegia HTN Neuropathy GERD Anemia - Plan Plan: Continue current treatment plan. Continue current medications Continue to monitor VS Monitor Diet/Nutritional support. Psych management per Psychiatry. Pain Management. PT/OT prn Safety precaution, Fall precaution, frequent nursing round. Supportive care. Continue collaborating with consulting specialists, case management and nursing team Nutritional Asmnt/Malnutr-PDOC - Dietary Evaluation Malnutrition Findings (Please click <Entered> for more info): Nutritional Asmnt/Malnutrition Start: 08/31/19 14: 01 Text: Status: Complete Freq: Protocol: Document 08/31/19 14:01 CAROLYN (Rec: 08/31/19 14:09 CAROLYN [email or web address]) Nutritional Asmnt/Malnutrition Patient General Information Nutritional Screening Moderate Risk Diagnosis Psychosis Pertinent Medical Hx/Surgical Hx GERD, Paraplegia, Neuropathy, Anemia, HTN Subjective Information Pt is a 74-year-old female admitted on d/t increased agitation and refusal of care. Pt is eating an estimated 53% (average) of meals since admit date (x4 days) Per Meal/Nutrition Activity Record. Dietary is currently providing an estimated 2200 kcals and 115 gm Pro, per Pt PO intake this is providing an estimated 1166 kcals and 60gm Pro to meet 70 % kcal and 92% Pro needs. Visited pt in room after lunch , pt ate 100% of lunch and stated she was pleased with the food. She asked about salt on her tray, I provided education on her diet and why we are not putting salt on her tray. Pt stated she has not gotten her dentures yet, but the chopped texture we have been providing her is sufficient and she has no issues eating. Anthropometrics HT: 58 WT: 188 LB (85.45 kg) ABW:145 LB (65.68 kg) IBW: 130 LB (59.18 kg), IBW-7% for paraplegia BMI: 28.66 (Overweight) GI/ Skin Integrity GI: Soft, Non-tender, GERD BM: 08/30 x1 I/O: 1320/Not Noted Skin: Dryness, Area of Concern , LT lower [place] x3 scabs, RT abdominal fold open area [place]: 13 Diet Order: Cardiac Estimated Energy Needs: ( Geriatric, ABW, Paraplegic) 2532-3785 kcals (25-28 kcals/ kg) 65-80g Pro (1.0-1.2 g/kg) 3225-7636 ml (25-30 ml/kg) Current Diet Order/ Nutrition Support Cardiac Pertinent Medications Dulcolax (PRN), Colace, MOM ( PRN), Protonix, Fleet Enema ( PRN) Pertinent Labs 08/26: Glucose 138, Alb 3.3, Tags 184, Chol 303, LDL 208, HDL 48 Nutritional Hx/Data Height 5 ft 8 in Height (Calculated Centimeters) 172.7 Current Weight (lbs) 188 lb Weight (Calculated Kilograms) 85.3 Weight (Calculated Grams) 34780.4 [place] Body Weight 130 LB (59.18 kg) % [place] Body Weight 145 Body Mass Index (BMI) 28.5 Weight Status Overweight GI Symptoms GI Symptoms None Last BM 08/30 x1 Skin Integrity/Comment: Skin: Dryness, Area of Concern , LT lower [place] x3 scabs, RT abdominal fold open area [place]: 13 Current %PO Fair (50-74%) Estimated Nutritional Goals BEE in Kcals: Using Current wt Calories/Kcals/Kg 25-28 Kcals Calculated 8476-6123 Protein: Using Current wt Protein g/k.0-1.2 Protein Calculated 65-80 Fluid: ml 0630-0973 ml (25-30 ml/kg) Nutritional Problem 1. Problem Problem Altered nutrition related labs Etiology r/t pathophysiological causes Signs/Symptoms: aeb labs (08/26) Glucose 138, Alb 3.3, Tags 184, Chol 303, LDL 208, HDL 48 and Diet Rx Cardiac. Intervention/Recommendation Comments Continue Cardiac diet as tolerated. Expected Outcomes/Goals Expected Outcomes/Goals 1.PO intake to continue to meet 75% of estimated nutritional needs. 2.Monitor PO intake, wt, nutrition related labs, and skin integrity to trend WNL. 3.F/U as low risk in 7-10 days , 09/07-09/10
--- NOTE | 2019-09-04 15:45 | Progress Notes ---
DATE: 09/04/2019 Case was discussed with staff of the patient, reviewed records. The patient continues to be angry, irritable, continues to redirection, isolating herself in the room, refusing medication at times. She is on Seroquel. When I talked to her, she was very angry, before I even asked for any questions she started saying that who you think I am, you have no authority to treat me. Continues to have poor insight. The patient may need to be reised she has been refusing medication more often according to the staff; however, the court is closed tomorrow. Dr. Carrera will be back on Thursday in 2 days, so he could decide when he can see her or when he can do it and we will continue outpatient group therapy, milieu therapy, adjust medication as needed. JOB# [id number] MTDD
[2019-09-05] MEDS: Pantoprazole 40 mg EC Tab PO SCH (07:06)
[2019-09-05] MEDS: Eucerin Cream 16 oz Jar TP SCH ×2 (09:26→17:29)
[2019-09-05] MEDS: Nystatin Cream 100,000 u/gm Cream 15 gm TP SCH (09:26)
--- NOTE | 2019-09-05 10:22 | Internal Medicine Prog Note ---
Internal Medicine Subjective - Subjective Service Date: 09/05/19 Patient seen and examined:: with staff Patient is:: awake, verbal, in bed, agitated, confused Patient Complaints of:: other Per staff patient has:: no adverse event, no episodes of fall, confused, refusing care, other (still angry and refuses medications) Internal Medicine Objective - Physical Exam Vitals and I&O: Vital Signs Temp 98.1 F 09/05/19 06:27 Pulse 66 09/05/19 06:27 Resp 16 09/05/19 07:51 BP 113/67 09/05/19 06:27 Pulse Ox 98 09/05/19 06:27 Intake & Output 09/04/19 09/05/19 09/05/19 18:59 06:59 18:59 Intake Total 1150 180 Balance 1150 180 Intake: Oral 1150 180 Other: # Voids 3 # Bowel Movements 0 Active Medications: Current Medications Al Hydrox/Mg Hydrox/Simethicone (Maalox) 30 ml PO Q4HR PRN PRN Reason: GI DISTRESS Stop: 10/26/19 04:29 Bacitracin (Baciquent) 1 appl TP DAILY [facility] Stop: 10/28/19 08:59 Last Admin: 09/05/19 09:26 Dose: Not Given Bisacodyl (Dulcolax 10 Mg Supp) 10 mg RC DAILY PRN PRN Reason: Constipation Stop: 10/26/19 19:58 Docusate Sodium (Colace) 200 mg PO DAILY [facility] Stop: 10/26/19 08:59 Last Admin: 09/05/19 09:25 Dose: Not Given Gabapentin (Neurontin) 200 mg PO Q6HR [facility] Stop: 10/26/19 05:59 Last Admin: 09/05/19 06:05 Dose: Not Given Hydralazine HCl (Apresoline) 50 mg PO Q6HR PRN PRN Reason: if SBP > 160 or DBP > 100 Stop: 10/26/19 20:03 Ibuprofen (Advil) 200 mg PO Q6HR PRN PRN Reason: Pain (Mild 1-3) Stop: 10/26/19 04:20 Lorazepam (Ativan) 0.5 mg PO Q4HR PRN; Protocol PRN Reason: agitation Stop: 09/26/19 04:29 Magnesium Hydroxide (Milk Of Magnesia) 30 ml PO HS PRN PRN Reason: Constipation Stop: 10/26/19 04:20 Multi-Ingredient Cream (Eucerin Cream) 1 appl TP BID [facility] Stop: 10/30/19 16:59 Last Admin: 09/05/19 09:26 Dose: Not Given Nortriptyline HCl (Pamelor) 25 mg PO DAILY [facility] Stop: 10/26/19 08:59 Last Admin: 09/05/19 09:26 Dose: Not Given Nystatin (Mycostatin Cream) 0 appl TP DAILY [facility]; Protocol Stop: 10/27/19 08:59 Last Admin: 09/05/19 09:26 Dose: Not Given Pantoprazole Sodium (Protonix) 40 mg PO 0630 [facility] Stop: 10/27/19 06:29 Last Admin: 09/05/19 07:06 Dose: Not Given Quetiapine Fumarate (Seroquel) 25 mg PO HS [facility]; Protocol Stop: 10/28/19 20:59 Last Admin: 09/04/19 21:15 Dose: Not Given Sodium Phosphate (Fleet Enema) 135 ml RC Q48HR PRN PRN Reason: If MOM & Dulcolax ineffective. Stop: 10/26/19 04:20 Zolpidem Tartrate (Ambien) 5 mg PO HSMR1 PRN PRN Reason: Insomnia Stop: 10/26/19 04:29 Physical Exam: Patient needs to be closely monitored, patient is very delusional and agitated. General: demented, NAD HEENT: NC/AT, PERRLA Neck: Supple, No JVD Lungs: other (no acute respiratory distress on RA) Cardiovascular: RRR Abdomen: soft, non-tender, non-distended Extremities: clear Neurological: no change Internal Medicine Assmt/Plan - Assessment Assessment: Schizophrenia. Delusional. Increased Agitation. History of Bipolar disorder. History of Depression. History of Paraplegia. History of Neuropathy. History of Anemia. History of Gerd. - Plan Plan: Psych management as per Psych. Continue present meds as directed. Monitor vitals and labs. Pain management. Monitor diet and nutritional support. Fall precaution. Continue current treatment plan as ordered. Nutritional Asmnt/Malnutr-PDOC - Dietary Evaluation Malnutrition Findings (Please click <Entered> for more info): Nutritional Asmnt/Malnutrition Start: 08/31/19 14: 01 Text: Status: Complete Freq: Protocol: Document 08/31/19 14:01 CAROLYN (Rec: 08/31/19 14:09 [email or web address]) Nutritional Asmnt/Malnutrition Patient General Information Nutritional Screening Moderate Risk Diagnosis Psychosis Pertinent Medical Hx/Surgical Hx GERD, Paraplegia, Neuropathy, Anemia, HTN Subjective Information Pt is a 74-year-old female admitted on d/t increased agitation and refusal of care. Pt is eating an estimated 53% (average) of meals since admit date (x4 days) Per Meal/Nutrition Activity Record. Dietary is currently providing an estimated 2200 kcals and 115 gm Pro, per Pt PO intake this is providing an estimated 1166 kcals and 60gm Pro to meet 70 % kcal and 92% Pro needs. Visited pt in room after lunch , pt ate 100% of lunch and stated she was pleased with the food. She asked about salt on her tray, I provided education on her diet and why we are not putting salt on her tray. Pt stated she has not gotten her dentures yet, but the chopped texture we have been providing her is sufficient and she has no issues eating. Anthropometrics HT: 58 WT: 188 LB (85.45 kg) ABW:145 LB (65.68 kg) IBW: 130 LB (59.18 kg), IBW-7% for paraplegia BMI: 28.66 (Overweight) GI/ Skin Integrity GI: Soft, Non-tender, GERD BM: 08/30 x1 I/O: 1320/Not Noted Skin: Dryness, Area of Concern , LT lower leon x3 scabs, RT abdominal fold open area [place]: 13 Diet Order: Cardiac Estimated Energy Needs: ( Geriatric, ABW, Paraplegic) 5204-0099 kcals (25-28 kcals/ kg) 65-80g Pro (1.0-1.2 g/kg) 6450-9744 ml (25-30 ml/kg) Current Diet Order/ Nutrition Support Cardiac Pertinent Medications Dulcolax (PRN), Colace, MOM ( PRN), Protonix, Fleet Enema ( PRN) Pertinent Labs 08/26: Glucose 138, Alb 3.3, Tags 184, Chol 303, LDL 208, HDL 48 Nutritional Hx/Data Height 1.73 m Height (Calculated Centimeters) 172.7 Current Weight (lbs) 85.275 kg Weight (Calculated Kilograms) 85.3 Weight (Calculated Grams) 13199.4 [place] Body Weight 130 LB (59.18 kg) % [place] Body Weight 145 Body Mass Index (BMI) 28.5 Weight Status Overweight GI Symptoms GI Symptoms None Last BM 08/30 x1 Skin Integrity/Comment: Skin: Dryness, Area of Concern , LT lower leon x3 scabs, RT abdominal fold open area [place]: 13 Current %PO Fair (50-74%) Estimated Nutritional Goals BEE in Kcals: Using Current wt Calories/Kcals/Kg 25-28 Kcals Calculated 4345-9808 Protein: Using Current wt Protein g/k.0-1.2 Protein Calculated 65-80 Fluid: ml 6244-1145 ml (25-30 ml/kg) Nutritional Problem 1. Problem Problem Altered nutrition related labs Etiology r/t pathophysiological causes Signs/Symptoms: aeb labs (08/26) Glucose 138, Alb 3.3, Tags 184, Chol 303, LDL 208, HDL 48 and Diet Rx Cardiac. Intervention/Recommendation Comments Continue Cardiac diet as tolerated. Expected Outcomes/Goals Expected Outcomes/Goals 1.PO intake to continue to meet 75% of estimated nutritional needs. 2.Monitor PO intake, wt, nutrition related labs, and skin integrity to trend WNL. 3.F/U as low risk in 7-10 days , 09/07-09/10
--- NOTE | 2019-09-05 10:25 | Internal Medicine Prog Note ---
Internal Medicine Subjective - Subjective Patient is:: asleep, in bed, agitated, confused Patient Complaints of:: other Per staff patient has:: no adverse event, no episodes of fall, confused, refusing care, other (still angry and refuses medications) Internal Medicine Objective - Physical Exam Vitals and I&O: Vital Signs Temp 98.1 F 09/05/19 06:27 Pulse 66 09/05/19 06:27 Resp 16 09/05/19 07:51 BP 113/67 09/05/19 06:27 Pulse Ox 98 09/05/19 06:27 Intake & Output 09/04/19 09/05/19 09/05/19 18:59 06:59 18:59 Intake Total 1150 180 Balance 1150 180 Intake: Oral 1150 180 Other: # Voids 3 # Bowel Movements 0 Active Medications: Current Medications Al Hydrox/Mg Hydrox/Simethicone (Maalox) 30 ml PO Q4HR PRN PRN Reason: GI DISTRESS Stop: 10/26/19 04:29 Bacitracin (Baciquent) 1 appl TP DAILY [facility] Stop: 10/28/19 08:59 Last Admin: 09/05/19 09:26 Dose: Not Given Bisacodyl (Dulcolax 10 Mg Supp) 10 mg RC DAILY PRN PRN Reason: Constipation Stop: 10/26/19 19:58 Docusate Sodium (Colace) 200 mg PO DAILY [facility] Stop: 10/26/19 08:59 Last Admin: 09/05/19 09:25 Dose: Not Given Gabapentin (Neurontin) 200 mg PO Q6HR [facility] Stop: 10/26/19 05:59 Last Admin: 09/05/19 06:05 Dose: Not Given Hydralazine HCl (Apresoline) 50 mg PO Q6HR PRN PRN Reason: if SBP > 160 or DBP > 100 Stop: 10/26/19 20:03 Ibuprofen (Advil) 200 mg PO Q6HR PRN PRN Reason: Pain (Mild 1-3) Stop: 10/26/19 04:20 Lorazepam (Ativan) 0.5 mg PO Q4HR PRN; Protocol PRN Reason: agitation Stop: 09/26/19 04:29 Magnesium Hydroxide (Milk Of Magnesia) 30 ml PO HS PRN PRN Reason: Constipation Stop: 10/26/19 04:20 Multi-Ingredient Cream (Eucerin Cream) 1 appl TP BID [facility] Stop: 10/30/19 16:59 Last Admin: 09/05/19 09:26 Dose: Not Given Nortriptyline HCl (Pamelor) 25 mg PO DAILY [facility] Stop: 10/26/19 08:59 Last Admin: 09/05/19 09:26 Dose: Not Given Nystatin (Mycostatin Cream) 0 appl TP DAILY [facility]; Protocol Stop: 10/27/19 08:59 Last Admin: 09/05/19 09:26 Dose: Not Given Pantoprazole Sodium (Protonix) 40 mg PO 0630 [facility] Stop: 10/27/19 06:29 Last Admin: 09/05/19 07:06 Dose: Not Given Quetiapine Fumarate (Seroquel) 25 mg PO HS [facility]; Protocol Stop: 10/28/19 20:59 Last Admin: 09/04/19 21:15 Dose: Not Given Sodium Phosphate (Fleet Enema) 135 ml RC Q48HR PRN PRN Reason: If MOM & Dulcolax ineffective. Stop: 10/26/19 04:20 Zolpidem Tartrate (Ambien) 5 mg PO HSMR1 PRN PRN Reason: Insomnia Stop: 10/26/19 04:29 General: demented, NAD HEENT: NC/AT, PERRLA Neck: Supple, No JVD Lungs: other (no acute respiratory distress on RA) Cardiovascular: RRR Abdomen: soft, non-tender, non-distended Extremities: clear Neurological: no change Internal Medicine Assmt/Plan - Assessment Assessment: Schizoprenia Delusional Paraplegia HTN Neuropathy GERD Anemia - Plan Plan: Continue current treatment plan. Continue current medications Continue to monitor VS Monitor Diet/Nutritional support. Psych management per Psychiatry. Pain Management. PT/OT prn Safety precaution, Fall precaution, frequent nursing round. Supportive care. Continue collaborating with consulting specialists, case management and nursing team Nutritional Asmnt/Malnutr-PDOC - Dietary Evaluation Malnutrition Findings (Please click <Entered> for more info): Nutritional Asmnt/Malnutrition Start: 08/31/19 14: 01 Text: Status: Complete Freq: Protocol: Document 08/31/19 14:01 CAROLYN (Rec: 08/31/19 14:09 CAROLYN [email or web address]) Nutritional Asmnt/Malnutrition Patient General Information Nutritional Screening Moderate Risk Diagnosis Psychosis Pertinent Medical Hx/Surgical Hx GERD, Paraplegia, Neuropathy, Anemia, HTN Subjective Information Pt is a 74-year-old female admitted on d/t increased agitation and refusal of care. Pt is eating an estimated 53% (average) of meals since admit date (x4 days) Per Meal/Nutrition Activity Record. Dietary is currently providing an estimated 2200 kcals and 115 gm Pro, per Pt PO intake this is providing an estimated 1166 kcals and 60gm Pro to meet 70 % kcal and 92% Pro needs. Visited pt in room after lunch , pt ate 100% of lunch and stated she was pleased with the food. She asked about salt on her tray, I provided education on her diet and why we are not putting salt on her tray. Pt stated she has not gotten her dentures yet, but the chopped texture we have been providing her is sufficient and she has no issues eating. Anthropometrics HT: 58 WT: 188 LB (85.45 kg) ABW:145 LB (65.68 kg) IBW: 130 LB (59.18 kg), IBW-7% for paraplegia BMI: 28.66 (Overweight) GI/ Skin Integrity GI: Soft, Non-tender, GERD BM: 08/30 x1 I/O: 1320/Not Noted Skin: Dryness, Area of Concern , LT lower leon x3 scabs, RT abdominal fold open area [place]: 13 Diet Order: Cardiac Estimated Energy Needs: ( Geriatric, ABW, Paraplegic) 5966-5872 kcals (25-28 kcals/ kg) 65-80g Pro (1.0-1.2 g/kg) 8833-1049 ml (25-30 ml/kg) Current Diet Order/ Nutrition Support Cardiac Pertinent Medications Dulcolax (PRN), Colace, MOM ( PRN), Protonix, Fleet Enema ( PRN) Pertinent Labs 08/26: Glucose 138, Alb 3.3, Tags 184, Chol 303, LDL 208, HDL 48 Nutritional Hx/Data Height 5 ft 8 in Height (Calculated Centimeters) 172.7 Current Weight (lbs) 188 lb Weight (Calculated Kilograms) 85.3 Weight (Calculated Grams) 50695.4 [place] Body Weight 130 LB (59.18 kg) % [place] Body Weight 145 Body Mass Index (BMI) 28.5 Weight Status Overweight GI Symptoms GI Symptoms None Last BM 08/30 x1 Skin Integrity/Comment: Skin: Dryness, Area of Concern , LT lower leon x3 scabs, RT abdominal fold open area [place]: 13 Current %PO Fair (50-74%) Estimated Nutritional Goals BEE in Kcals: Using Current wt Calories/Kcals/Kg 25-28 Kcals Calculated 4250-0587 Protein: Using Current wt Protein g/k.0-1.2 Protein Calculated 65-80 Fluid: ml 1874-1573 ml (25-30 ml/kg) Nutritional Problem 1. Problem Problem Altered nutrition related labs Etiology r/t pathophysiological causes Signs/Symptoms: aeb labs (08/26) Glucose 138, Alb 3.3, Tags 184, Chol 303, LDL 208, HDL 48 and Diet Rx Cardiac. Intervention/Recommendation Comments Continue Cardiac diet as tolerated. Expected Outcomes/Goals Expected Outcomes/Goals 1.PO intake to continue to meet 75% of estimated nutritional needs. 2.Monitor PO intake, wt, nutrition related labs, and skin integrity to trend WNL. 3.F/U as low risk in 7-10 days , 09/07-09/10
--- NOTE | 2019-09-05 14:29 | Progress Notes ---
DATE: 09/05/2019 Case was discussed with staff of the patient, reviewed records. The patient would not talk to me today. She apparently threw the food. Continues to be explosive, unpredictable, and impulsive well. We ambulate to reach her as for the last [address], [address] has been closed and tomorrow Dr. Carrera will be back and he could decide, what days she can file a reise Actually, I talked to her before that and was trying to convince her, it did not work out. However, continues to be not suitable for discharge because of her explosive behaviors. She believes she should not be here and continues to be unable to make safe plan for self-care or participate in meaningful conversation and Dr. Carrera will follow up with her. JOB# [id number] RAGHU
[2019-09-06] MEDS: Pantoprazole 40 mg EC Tab PO SCH (06:10)
[2019-09-06] MEDS: Nystatin Cream 100,000 u/gm Cream 15 gm TP SCH ×2 (08:21→09:01)
[2019-09-06] MEDS: Eucerin Cream 16 oz Jar TP SCH ×3 (08:21→16:29)
--- NOTE | 2019-09-06 21:17 | Progress Notes ---
DATE: 09/06/2019 SUBJECTIVE: The patient was seen today 09/06/2019, unruly, agitated, yelling, screaming, stating that she does not need medications. 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 Patients throwing things at nursing staff on having trouble even having a conversation with her because she is yelling, cursing. We will initiate a [place] petition. Ongoing safety concerns. JOB# [id number]
[2019-09-07] MEDS: Pantoprazole 40 mg EC Tab PO SCH (06:15)
[2019-09-07] MEDS: Eucerin Cream 16 oz Jar TP SCH ×2 (08:36→16:11)
[2019-09-07] MEDS: Nystatin Cream 100,000 u/gm Cream 15 gm TP SCH (08:38)
--- NOTE | 2019-09-07 16:17 | Internal Medicine Prog Note ---
Internal Medicine Subjective - Subjective Service Date: 09/07/19 Patient is:: asleep, in bed, agitated, confused Patient Complaints of:: other Per staff patient has:: no adverse event, no episodes of fall, confused, refusing care, other (still angry and refuses medications) Internal Medicine Objective - Physical Exam Vitals and I&O: Vital Signs Temp 98.0 F 09/07/19 14:00 Pulse 84 09/07/19 14:00 Resp 20 09/07/19 14:00 BP 123/77 09/07/19 14:00 Pulse Ox 95 09/07/19 14:00 Intake & Output 09/06/19 09/07/19 09/07/19 18:59 06:59 18:59 Intake Total 1200 120 Balance 1200 120 Intake: Oral 1200 120 Other: # Voids 4 1 # Bowel Movements 1 1 Active Medications: Current Medications Al Hydrox/Mg Hydrox/Simethicone (Maalox) 30 ml PO Q4HR PRN PRN Reason: GI DISTRESS Stop: 10/26/19 04:29 Bisacodyl (Dulcolax 10 Mg Supp) 10 mg RC DAILY PRN PRN Reason: Constipation Stop: 10/26/19 19:58 Docusate Sodium (Colace) 200 mg PO DAILY [facility] Stop: 10/26/19 08:59 Last Admin: 09/07/19 08:36 Dose: Not Given Gabapentin (Neurontin) 200 mg PO Q6HR [facility] Stop: 10/26/19 05:59 Last Admin: 09/07/19 12:00 Dose: Not Given Hydralazine HCl (Apresoline) 50 mg PO Q6HR PRN PRN Reason: if SBP > 160 or DBP > 100 Stop: 10/26/19 20:03 Ibuprofen (Advil) 200 mg PO Q6HR PRN PRN Reason: Pain (Mild 1-3) Stop: 10/26/19 04:20 Lorazepam (Ativan) 0.5 mg PO Q4HR PRN; Protocol PRN Reason: agitation Stop: 09/26/19 04:29 Magnesium Hydroxide (Milk Of Magnesia) 30 ml PO HS PRN PRN Reason: Constipation Stop: 10/26/19 04:20 Multi-Ingredient Cream (Eucerin Cream) 1 appl TP BID [facility] Stop: 10/30/19 16:59 Last Admin: 09/07/19 16:11 Dose: 1 appl Nortriptyline HCl (Pamelor) 25 mg PO DAILY [facility] Stop: 10/26/19 08:59 Last Admin: 09/07/19 08:36 Dose: Not Given Nystatin (Mycostatin Cream) 0 appl TP DAILY [facility]; Protocol Stop: 10/27/19 08:59 Last Admin: 09/07/19 08:38 Dose: 2 appl Pantoprazole Sodium (Protonix) 40 mg PO 0630 [facility] Stop: 10/27/19 06:29 Last Admin: 09/07/19 06:15 Dose: Not Given Quetiapine Fumarate (Seroquel) 25 mg PO HS [facility]; Protocol Stop: 10/28/19 20:59 Last Admin: 09/06/19 20:24 Dose: Not Given Sodium Phosphate (Fleet Enema) 135 ml RC Q48HR PRN PRN Reason: If MOM & Dulcolax ineffective. Stop: 10/26/19 04:20 Zolpidem Tartrate (Ambien) 5 mg PO HSMR1 PRN PRN Reason: Insomnia Stop: 10/26/19 04:29 General: demented, NAD HEENT: NC/AT, PERRLA Neck: Supple, No JVD Lungs: other (no acute respiratory distress on RA) Cardiovascular: RRR Abdomen: soft, non-tender, non-distended Extremities: clear Neurological: no change Internal Medicine Assmt/Plan - Assessment Assessment: Schizoprenia Delusional Paraplegia HTN Neuropathy GERD Anemia - Plan Plan: Continue current treatment plan. Continue current medications Continue to monitor VS Monitor Diet/Nutritional support. Psych management per Psychiatry. Pain Management. PT/OT prn Safety precaution, Fall precaution, frequent nursing round. Supportive care. Continue collaborating with consulting specialists, case management and nursing team Nutritional Asmnt/Malnutr-PDOC - Dietary Evaluation Malnutrition Findings (Please click <Entered> for more info): Nutritional Asmnt/Malnutrition Start: 08/31/19 14: 01 Text: Status: Complete Freq: Protocol: Document 08/31/19 14:01 CAROLYN (Rec: 08/31/19 14:09 CAROLYN [email or web address]) Nutritional Asmnt/Malnutrition Patient General Information Nutritional Screening Moderate Risk Diagnosis Psychosis Pertinent Medical Hx/Surgical Hx GERD, Paraplegia, Neuropathy, Anemia, HTN Subjective Information Pt is a 74-year-old female admitted on d/t increased agitation and refusal of care. Pt is eating an estimated 53% (average) of meals since admit date (x4 days) Per Meal/Nutrition Activity Record. Dietary is currently providing an estimated 2200 kcals and 115 gm Pro, per Pt PO intake this is providing an estimated 1166 kcals and 60gm Pro to meet 70 % kcal and 92% Pro needs. Visited pt in room after lunch , pt ate 100% of lunch and stated she was pleased with the food. She asked about salt on her tray, I provided education on her diet and why we are not putting salt on her tray. Pt stated she has not gotten her dentures yet, but the chopped texture we have been providing her is sufficient and she has no issues eating. Anthropometrics HT: 58 WT: 188 LB (85.45 kg) ABW:145 LB (65.68 kg) IBW: 130 LB (59.18 kg), IBW-7% for paraplegia BMI: 28.66 (Overweight) GI/ Skin Integrity GI: Soft, Non-tender, GERD BM: 08/30 x1 I/O: 1320/Not Noted Skin: Dryness, Area of Concern , LT lower leon x3 scabs, RT abdominal fold open area [place]: 13 Diet Order: Cardiac Estimated Energy Needs: ( Geriatric, ABW, Paraplegic) 1623-2894 kcals (25-28 kcals/ kg) 65-80g Pro (1.0-1.2 g/kg) 7007-0218 ml (25-30 ml/kg) Current Diet Order/ Nutrition Support Cardiac Pertinent Medications Dulcolax (PRN), Colace, MOM ( PRN), Protonix, Fleet Enema ( PRN) Pertinent Labs 08/26: Glucose 138, Alb 3.3, Tags 184, Chol 303, LDL 208, HDL 48 Nutritional Hx/Data Height 5 ft 8 in Height (Calculated Centimeters) 172.7 Current Weight (lbs) 188 lb Weight (Calculated Kilograms) 85.3 Weight (Calculated Grams) 82569.4 [place] Body Weight 130 LB (59.18 kg) % [place] Body Weight 145 Body Mass Index (BMI) 28.5 Weight Status Overweight GI Symptoms GI Symptoms None Last BM 08/30 x1 Skin Integrity/Comment: Skin: Dryness, Area of Concern , LT lower leon x3 scabs, RT abdominal fold open area [place]: 13 Current %PO Fair (50-74%) Estimated Nutritional Goals BEE in Kcals: Using Current wt Calories/Kcals/Kg 25-28 Kcals Calculated 5670-1731 Protein: Using Current wt Protein g/k.0-1.2 Protein Calculated 65-80 Fluid: ml 7254-6057 ml (25-30 ml/kg) Nutritional Problem 1. Problem Problem Altered nutrition related labs Etiology r/t pathophysiological causes Signs/Symptoms: aeb labs (08/26) Glucose 138, Alb 3.3, Tags 184, Chol 303, LDL 208, HDL 48 and Diet Rx Cardiac. Intervention/Recommendation Comments Continue Cardiac diet as tolerated. Expected Outcomes/Goals Expected Outcomes/Goals 1.PO intake to continue to meet 75% of estimated nutritional needs. 2.Monitor PO intake, wt, nutrition related labs, and skin integrity to trend WNL. 3.F/U as low risk in 7-10 days , 09/07-09/10
[2019-09-08] MEDS: Pantoprazole 40 mg EC Tab PO SCH (06:27)
[2019-09-08] MEDS: Eucerin Cream 16 oz Jar TP SCH ×2 (08:37→16:25)
[2019-09-08] MEDS: Nystatin Cream 100,000 u/gm Cream 15 gm TP SCH (08:38)
--- NOTE | 2019-09-08 10:08 | Progress Notes ---
DATE: 09/07/2019 The patient is irritable, upset, agitated, "get out," "my would be mad if he knew you were talking to me this way." The patient is stating she does not want to take medications or other new medications. She is fine, ongoing grandiosities, hard to approach, yelling, screaming, unruly, currently awaiting the [place] hearing. [facility]# [id number]
--- NOTE | 2019-09-08 15:05 | Progress Notes ---
DATE: 09/08/2019 The patient in hospital floor, yelling, screaming, delusional, telling me to "get out, do you know who I am, do you know who I am" just keeps asking this, very impulsive, unpredictable, unruly, aggressive, aggressive towards staff, verbally aggressive as well, currently pending a [place] hearing. Ongoing safety concerns. [facility]# [id number]
--- NOTE | 2019-09-08 15:57 | Internal Medicine Prog Note ---
Internal Medicine Subjective - Subjective Service Date: 09/08/19 Patient is:: asleep, in bed, agitated, confused Patient Complaints of:: other Per staff patient has:: no adverse event, no episodes of fall, confused, refusing care, other (still angry and refuses medications) Internal Medicine Objective - Physical Exam Vitals and I&O: Vital Signs Temp 97.8 F 09/08/19 07:02 Pulse 70 09/08/19 07:02 Resp 16 09/08/19 08:00 BP 130/72 09/08/19 07:02 Pulse Ox 97 09/08/19 07:02 Intake & Output 09/07/19 09/08/19 09/08/19 18:59 06:59 18:59 Intake Total 900 120 120 Balance 900 120 120 Intake: Oral 900 120 120 Other: # Voids 2 2 # Bowel Movements 0 1 Active Medications: Current Medications Al Hydrox/Mg Hydrox/Simethicone (Maalox) 30 ml PO Q4HR PRN PRN Reason: GI DISTRESS Stop: 10/26/19 04:29 Bisacodyl (Dulcolax 10 Mg Supp) 10 mg RC DAILY PRN PRN Reason: Constipation Stop: 10/26/19 19:58 Docusate Sodium (Colace) 200 mg PO DAILY [facility] Stop: 10/26/19 08:59 Last Admin: 09/08/19 08:37 Dose: Not Given Gabapentin (Neurontin) 200 mg PO Q6HR [facility]HEW Stop: 10/26/19 05:59 Last Admin: 09/08/19 11:28 Dose: Not Given Hydralazine HCl (Apresoline) 50 mg PO Q6HR PRN PRN Reason: if SBP > 160 or DBP > 100 Stop: 10/26/19 20:03 Ibuprofen (Advil) 200 mg PO Q6HR PRN PRN Reason: Pain (Mild 1-3) Stop: 10/26/19 04:20 Lorazepam (Ativan) 0.5 mg PO Q4HR PRN; Protocol PRN Reason: agitation Stop: 09/26/19 04:29 Magnesium Hydroxide (Milk Of Magnesia) 30 ml PO HS PRN PRN Reason: Constipation Stop: 10/26/19 04:20 Multi-Ingredient Cream (Eucerin Cream) 1 appl TP BID [facility] Stop: 10/30/19 16:59 Last Admin: 09/08/19 08:37 Dose: 1 appl Nortriptyline HCl (Pamelor) 25 mg PO DAILY [facility] Stop: 10/26/19 08:59 Last Admin: 09/08/19 08:37 Dose: Not Given Nystatin (Mycostatin Cream) 0 appl TP DAILY [facility]HEW; Protocol Stop: 10/27/19 08:59 Last Admin: 09/08/19 08:38 Dose: 1 appl Pantoprazole Sodium (Protonix) 40 mg PO 0630 MATHEW Stop: 10/27/19 06:29 Last Admin: 09/08/19 06:27 Dose: Not Given Quetiapine Fumarate (Seroquel) 25 mg PO HS MATHEW; Protocol Stop: 10/28/19 20:59 Last Admin: 09/07/19 20:45 Dose: Not Given Sodium Phosphate (Fleet Enema) 135 ml RC Q48HR PRN PRN Reason: If MOM & Dulcolax ineffective. Stop: 10/26/19 04:20 Zolpidem Tartrate (Ambien) 5 mg PO HSMR1 PRN PRN Reason: Insomnia Stop: 10/26/19 04:29 General: demented, NAD HEENT: NC/AT, PERRLA Neck: Supple, No JVD Lungs: other (no acute respiratory distress on RA) Cardiovascular: RRR Abdomen: soft, non-tender, non-distended Extremities: clear Neurological: no change Internal Medicine Assmt/Plan - Assessment Assessment: Schizoprenia Delusional Paraplegia HTN Neuropathy GERD Anemia - Plan Plan: Continue current treatment plan. Continue current medications Continue to monitor VS Monitor Diet/Nutritional support. Psych management per Psychiatry. Pain Management. PT/OT prn Safety precaution, Fall precaution, frequent nursing round. Supportive care. Continue collaborating with consulting specialists, case management and nursing team Nutritional Asmnt/Malnutr-PDOC - Dietary Evaluation Malnutrition Findings (Please click <Entered> for more info): Nutritional Asmnt/Malnutrition Start: 08/31/19 14: 01 Text: Status: Complete Freq: Protocol: Document 08/31/19 14:01 CAROLYN (Rec: 08/31/19 14:09 CAROLYN [email or web address]) Nutritional Asmnt/Malnutrition Patient General Information Nutritional Screening Moderate Risk Diagnosis Psychosis Pertinent Medical Hx/Surgical Hx GERD, Paraplegia, Neuropathy, Anemia, HTN Subjective Information Pt is a 74-year-old female admitted on d/t increased agitation and refusal of care. Pt is eating an estimated 53% (average) of meals since admit date (x4 days) Per Meal/Nutrition Activity Record. Dietary is currently providing an estimated 2200 kcals and 115 gm Pro, per Pt PO intake this is providing an estimated 1166 kcals and 60gm Pro to meet 70 % kcal and 92% Pro needs. Visited pt in room after lunch , pt ate 100% of lunch and stated she was pleased with the food. She asked about salt on her tray, I provided education on her diet and why we are not putting salt on her tray. Pt stated she has not gotten her dentures yet, but the chopped texture we have been providing her is sufficient and she has no issues eating. Anthropometrics HT: 58 WT: 188 LB (85.45 kg) ABW:145 LB (65.68 kg) IBW: 130 LB (59.18 kg), IBW-7% for paraplegia BMI: 28.66 (Overweight) GI/ Skin Integrity GI: Soft, Non-tender, GERD BM: 08/30 x1 I/O: 1320/Not Noted Skin: Dryness, Area of Concern , LT lower leon x3 scabs, RT abdominal fold open area [place]: 13 Diet Order: Cardiac Estimated Energy Needs: ( Geriatric, ABW, Paraplegic) 2640-1611 kcals (25-28 kcals/ kg) 65-80g Pro (1.0-1.2 g/kg) 2968-7132 ml (25-30 ml/kg) Current Diet Order/ Nutrition Support Cardiac Pertinent Medications Dulcolax (PRN), Colace, MOM ( PRN), Protonix, Fleet Enema ( PRN) Pertinent Labs 08/26: Glucose 138, Alb 3.3, Tags 184, Chol 303, LDL 208, HDL 48 Nutritional Hx/Data Height 5 ft 8 in Height (Calculated Centimeters) 172.7 Current Weight (lbs) 188 lb Weight (Calculated Kilograms) 85.3 Weight (Calculated Grams) 13413.4 [place] Body Weight 130 LB (59.18 kg) % [place] Body Weight 145 Body Mass Index (BMI) 28.5 Weight Status Overweight GI Symptoms GI Symptoms None Last BM 08/30 x1 Skin Integrity/Comment: Skin: Dryness, Area of Concern , LT lower [place]on x3 scabs, RT abdominal fold open area [place]: 13 Current %PO Fair (50-74%) Estimated Nutritional Goals BEE in Kcals: Using Current wt Calories/Kcals/Kg 25-28 Kcals Calculated 6287-3852 Protein: Using Current wt Protein g/k.0-1.2 Protein Calculated 65-80 Fluid: ml 8887-9969 ml (25-30 ml/kg) Nutritional Problem 1. Problem Problem Altered nutrition related labs Etiology r/t pathophysiological causes Signs/Symptoms: aeb labs (08/26) Glucose 138, Alb 3.3, Tags 184, Chol 303, LDL 208, HDL 48 and Diet Rx Cardiac. Intervention/Recommendation Comments Continue Cardiac diet as tolerated. Expected Outcomes/Goals Expected Outcomes/Goals 1.PO intake to continue to meet 75% of estimated nutritional needs. 2.Monitor PO intake, wt, nutrition related labs, and skin integrity to trend WNL. 3.F/U as low risk in 7-10 days , 09/07-09/10
[2019-09-09] MEDS: Pantoprazole 40 mg EC Tab PO SCH (06:42)
[2019-09-09] MEDS: Eucerin Cream 16 oz Jar TP SCH ×2 (09:44→18:49)
[2019-09-09] MEDS: Nystatin Cream 100,000 u/gm Cream 15 gm TP SCH (09:45)
--- NOTE | 2019-09-09 11:53 | Internal Medicine Prog Note ---
Internal Medicine Subjective - Subjective Patient is:: asleep, in bed, agitated, confused Patient Complaints of:: other Per staff patient has:: no adverse event, no episodes of fall, confused, refusing care, other (still angry and refuses medications) Internal Medicine Objective - Physical Exam Vitals and I&O: Vital Signs Temp 97.6 F 09/09/19 05:59 Pulse 68 09/09/19 05:59 Resp 16 09/09/19 08:00 BP 114/57 09/09/19 05:59 Pulse Ox 97 09/09/19 05:59 Intake & Output 09/08/19 09/09/19 09/09/19 18:59 06:59 18:59 Intake Total 1120 120 Output Total 1 Balance 1120 119 Intake: Oral 1120 120 Output: Urine/Stool Mix 1 Other: # Voids 4 1 # Bowel Movements 0 Active Medications: Current Medications Al Hydrox/Mg Hydrox/Simethicone (Maalox) 30 ml PO Q4HR PRN PRN Reason: GI DISTRESS Stop: 10/26/19 04:29 Bisacodyl (Dulcolax 10 Mg Supp) 10 mg RC DAILY PRN PRN Reason: Constipation Stop: 10/26/19 19:58 Docusate Sodium (Colace) 200 mg PO DAILY [facility] Stop: 10/26/19 08:59 Last Admin: 09/09/19 09:44 Dose: Not Given Gabapentin (Neurontin) 200 mg PO Q6HR [facility] Stop: 10/26/19 05:59 Last Admin: 09/09/19 06:18 Dose: Not Given Hydralazine HCl (Apresoline) 50 mg PO Q6HR PRN PRN Reason: if SBP > 160 or DBP > 100 Stop: 10/26/19 20:03 Ibuprofen (Advil) 200 mg PO Q6HR PRN PRN Reason: Pain (Mild 1-3) Stop: 10/26/19 04:20 Lorazepam (Ativan) 0.5 mg PO Q4HR PRN; Protocol PRN Reason: agitation Stop: 09/26/19 04:29 Magnesium Hydroxide (Milk Of Magnesia) 30 ml PO HS PRN PRN Reason: Constipation Stop: 10/26/19 04:20 Multi-Ingredient Cream (Eucerin Cream) 1 appl TP BID [facility] Stop: 03/15/20 16:59 Last Admin: 09/09/19 09:44 Dose: 1 appl Nortriptyline HCl (Pamelor) 25 mg PO DAILY [facility] Stop: 10/26/19 08:59 Last Admin: 09/09/19 09:44 Dose: Not Given Nystatin (Mycostatin Cream) 0 appl TP DAILY [facility]; Protocol Stop: 10/27/19 08:59 Last Admin: 09/09/19 09:45 Dose: 1 appl Pantoprazole Sodium (Protonix) 40 mg PO 0630 [facility] Stop: 10/27/19 06:29 Last Admin: 09/09/19 06:42 Dose: Not Given Quetiapine Fumarate (Seroquel) 25 mg PO HS [facility]; Protocol Stop: 10/28/19 20:59 Last Admin: 09/08/19 20:42 Dose: Not Given Sodium Phosphate (Fleet Enema) 135 ml RC Q48HR PRN PRN Reason: If MOM & Dulcolax ineffective. Stop: 10/26/19 04:20 Zolpidem Tartrate (Ambien) 5 mg PO HSMR1 PRN PRN Reason: Insomnia Stop: 10/26/19 04:29 General: demented, NAD HEENT: NC/AT, PERRLA Neck: Supple, No JVD Lungs: other (no acute respiratory distress on RA) Cardiovascular: RRR Abdomen: soft, non-tender, non-distended Extremities: clear Neurological: no change Internal Medicine Assmt/Plan - Assessment Assessment: Schizoprenia Delusional Paraplegia HTN Neuropathy GERD Anemia - Plan Plan: Continue current treatment plan. Continue current medications Continue to monitor VS Monitor Diet/Nutritional support. Psych management per Psychiatry. Pain Management. PT/OT prn Safety precaution, Fall precaution, frequent nursing round. Supportive care. Continue collaborating with consulting specialists, case management and nursing team Nutritional Asmnt/Malnutr-PDOC - Dietary Evaluation Malnutrition Findings (Please click <Entered> for more info): Nutritional Asmnt/Malnutrition Start: 08/31/19 14: 01 Text: Status: Complete Freq: Protocol: Document 08/31/19 14:01 CAROLYN (Rec: 08/31/19 14:09 CAROLYN [email or web address]) Nutritional Asmnt/Malnutrition Patient General Information Nutritional Screening Moderate Risk Diagnosis Psychosis Pertinent Medical Hx/Surgical Hx GERD, Paraplegia, Neuropathy, Anemia, HTN Subjective Information Pt is a 74-year-old female admitted on d/t increased agitation and refusal of care. Pt is eating an estimated 53% (average) of meals since admit date (x4 days) Per Meal/Nutrition Activity Record. Dietary is currently providing an estimated 2200 kcals and 115 gm Pro, per Pt PO intake this is providing an estimated 1166 kcals and 60gm Pro to meet 70 % kcal and 92% Pro needs. Visited pt in room after lunch , pt ate 100% of lunch and stated she was pleased with the food. She asked about salt on her tray, I provided education on her diet and why we are not putting salt on her tray. Pt stated she has not gotten her dentures yet, but the chopped texture we have been providing her is sufficient and she has no issues eating. Anthropometrics HT: 58 WT: 188 LB (85.45 kg) ABW:145 LB (65.68 kg) IBW: 130 LB (59.18 kg), IBW-7% for paraplegia BMI: 28.66 (Overweight) GI/ Skin Integrity GI: Soft, Non-tender, GERD BM: 08/30 x1 I/O: 1320/Not Noted Skin: Dryness, Area of Concern , LT lower [place] x3 scabs, RT abdominal fold open area [place]: 13 Diet Order: Cardiac Estimated Energy Needs: ( Geriatric, ABW, Paraplegic) 5257-1209 kcals (25-28 kcals/ kg) 65-80g Pro (1.0-1.2 g/kg) 5755-2308 ml (25-30 ml/kg) Current Diet Order/ Nutrition Support Cardiac Pertinent Medications Dulcolax (PRN), Colace, MOM ( PRN), Protonix, Fleet Enema ( PRN) Pertinent Labs 08/26: Glucose 138, Alb 3.3, Tags 184, Chol 303, LDL 208, HDL 48 Nutritional Hx/Data Height 5 ft 8 in Height (Calculated Centimeters) 172.7 Current Weight (lbs) 188 lb Weight (Calculated Kilograms) 85.3 Weight (Calculated Grams) 78928.4 [place] Body Weight 130 LB (59.18 kg) % [place] Body Weight 145 Body Mass Index (BMI) 28.5 Weight Status Overweight GI Symptoms GI Symptoms None Last BM 1/14 x1 Skin Integrity/Comment: Skin: Dryness, Area of Concern , LT lower [place] x3 scabs, RT abdominal fold open area [place]: 13 Current %PO Fair (50-74%) Estimated Nutritional Goals BEE in Kcals: Using Current wt Calories/Kcals/Kg 25-28 Kcals Calculated 1771-4975 Protein: Using Current wt Protein g/k.0-1.2 Protein Calculated 65-80 Fluid: ml 1552-8280 ml (25-30 ml/kg) Nutritional Problem 1. Problem Problem Altered nutrition related labs Etiology r/t pathophysiological causes Signs/Symptoms: aeb labs (08/26) Glucose 138, Alb 3.3, Tags 184, Chol 303, LDL 208, HDL 48 and Diet Rx Cardiac. Intervention/Recommendation Comments Continue Cardiac diet as tolerated. Expected Outcomes/Goals Expected Outcomes/Goals 1.PO intake to continue to meet 75% of estimated nutritional needs. 2.Monitor PO intake, wt, nutrition related labs, and skin integrity to trend WNL. 3.F/U as low risk in 7-10 days , 09/07-09/10
--- NOTE | 2019-09-09 17:58 | Progress Notes ---
DATE: 09/09/2019 SUBJECTIVE: The patient remains unruly, agitated, refusing to talk to me, still unruly with staff, yelling, screaming, ongoing agitation, unable to really place her at a lower level of care given her ongoing behaviors, very impulsive, unpredictable, refusing medications. I had to resend the [place] petition. I talked to the court today hoping for a [place] hearing this coming Thursday. JOB# [id number]
[2019-09-10] MEDS: Pantoprazole 40 mg EC Tab PO SCH (06:21)
--- NOTE | 2019-09-10 07:52 | Progress Notes ---
DATE: 09/10/2019 SUBJECTIVE: The patient was seen in the room. The patient appears to be agitated, easily gets frustrated, poor impulse control, episodes of refusing care. Otherwise, the patient appears to be in no acute distress. OBJECTIVE: VITAL SIGNS: Temperature 98.1, heart rate 70, blood pressure 144/77, respirations 20, 95% on room air. HEENT: Head is atraumatic and normocephalic. Eyes: Bilateral conjunctivae are clear. Bilateral pupils are equally round and reactive. NECK: Supple. No JVD. CARDIOVASCULAR: S1, S2, without murmur. PULMONARY: Clear to auscultation. GASTROINTESTINAL: Soft and nontender without guarding. Positive bowel sounds. MUSCULOSKELETAL: No clubbing. No cyanosis noted. ASSESSMENT: 1. Mood disorder. 2. Hypertension. 3. Paraplegia. 4. Gastroesophageal reflux disease. 5. Anemia. 6. Neuropathy. PLAN: We will continue to keep the patient to inpatient Psychiatric Unit. We will follow up with a psychiatrist to monitor the patient's condition and behavior. We will put the patient on fall precautions. Treatment plans were discussed with the patient's nurse. Treatment plans were discussed with Dr. Pryor. JOB# [id number]
[2019-09-10] MEDS: Nystatin Cream 100,000 u/gm Cream 15 gm TP SCH ×2 (09:01→09:35)
[2019-09-10] MEDS: Eucerin Cream 16 oz Jar TP SCH ×3 (09:02→17:02)
--- NOTE | 2019-09-10 20:52 | Progress Notes ---
DATE: 09/10/2019 Dr. Santos covering for ____. Also discussed the patient's condition with the staff and reviewed records and labs. "I want to get out of here." The patient is yelling and screaming and she is still easily agitated and confused. The patient is demanding to leave the hospital in spite of trying to explain to her the reason why she is in the hospital, but she is still in angry mood and is still irritable and agitated. Otherwise, the patient is taking her medications, but she is still suspicious and paranoid and yelling and screaming and she refused to take the Seroquel yesterday night. ASSESSMENT: The patient is still paranoid and confused. TREATMENT PLAN: Encouraged the patient to take Seroquel and to comply with taking her medications and the treatment in the hospital. Also, we will continue to work on her irritability and anger and mood swings and continue to follow up. JOB# [id number]
[2019-09-11] MEDS: Pantoprazole 40 mg EC Tab PO SCH (06:56)
[2019-09-11] MEDS: Eucerin Cream 16 oz Jar TP SCH ×2 (09:44→18:41)
[2019-09-11] MEDS: Nystatin Cream 100,000 u/gm Cream 15 gm TP SCH (09:44)
--- NOTE | 2019-09-11 17:58 | Progress Notes ---
DATE: SUBJECTIVE: Chart was reviewed and the patient interviewed. Also discussed the patient's condition with the staff and reviewed records and labs. The patient is still in irritable and angry mood. The patient also is still demanding and is still paranoid and easily agitated. She also still has episodes of yelling and screaming for no apparent reason. She also is demanding to be discharged while she has no safe plan for discharge or for self-care. She also is still in irritable mood. Otherwise, the patient is continuing to take medications with no side effects. ASSESSMENT: The patient is still psychotic and agitated. TREATMENT PLAN: The patient is still selective with medications and she is still according to staff refusing medications, although the patient said that she did take it. She is still in irritable and angry mood, but at the same time [place] petition hearing is pending. We will continue monitoring her behavior and her condition and work on her irritability and continue to follow up. [facility]# [id number]
--- NOTE | 2019-09-11 21:45 | Internal Medicine Prog Note ---
Internal Medicine Subjective - Subjective Patient is:: awake, verbal, in bed, agitated, confused Patient Complaints of:: other Per staff patient has:: no adverse event, no episodes of fall, confused, refusing care, other (still angry and refuses medications) Internal Medicine Objective - Physical Exam Vitals and I&O: Vital Signs Temp 99.0 F 09/11/19 20:08 Pulse 88 09/11/19 20:08 Resp 20 09/11/19 20:08 BP 124/67 09/11/19 20:08 Pulse Ox 96 09/11/19 20:08 Intake & Output 09/11/19 09/11/19 09/12/19 06:59 18:59 06:59 Intake Total 240 850 240 Balance 240 850 240 Intake: Oral 240 850 240 Other: # Voids 1 2 Active Medications: Current Medications Al Hydrox/Mg Hydrox/Simethicone (Maalox) 30 ml PO Q4HR PRN PRN Reason: GI DISTRESS Stop: 10/26/19 04:29 Bisacodyl (Dulcolax 10 Mg Supp) 10 mg RC DAILY PRN PRN Reason: Constipation Stop: 10/26/19 19:58 Docusate Sodium (Colace) 200 mg PO DAILY [facility] Stop: 10/26/19 08:59 Last Admin: 09/11/19 09:44 Dose: Not Given Gabapentin (Neurontin) 200 mg PO Q6HR [facility] Stop: 10/26/19 05:59 Last Admin: 09/11/19 18:41 Dose: Not Given Hydralazine HCl (Apresoline) 50 mg PO Q6HR PRN PRN Reason: if SBP > 160 or DBP > 100 Stop: 10/26/19 20:03 Ibuprofen (Advil) 200 mg PO Q6HR PRN PRN Reason: Pain (Mild 1-3) Stop: 10/26/19 04:20 Lorazepam (Ativan) 0.5 mg PO Q4HR PRN; Protocol PRN Reason: agitation Stop: 09/26/19 04:29 Magnesium Hydroxide (Milk Of Magnesia) 30 ml PO HS PRN PRN Reason: Constipation Stop: 10/26/19 04:20 Multi-Ingredient Cream (Eucerin Cream) 1 appl TP BID [facility] Stop: 10/30/19 16:59 Last Admin: 09/11/19 18:41 Dose: Not Given Nortriptyline HCl (Pamelor) 25 mg PO DAILY [facility] Stop: 10/26/19 08:59 Last Admin: 09/11/19 09:44 Dose: Not Given Nystatin (Mycostatin Cream) 0 appl TP DAILY [facility]; Protocol Stop: 10/27/19 08:59 Last Admin: 09/11/19 09:44 Dose: Not Given Pantoprazole Sodium (Protonix) 40 mg PO 0630 [facility] Stop: 10/27/19 06:29 Last Admin: 09/11/19 06:56 Dose: Not Given Quetiapine Fumarate (Seroquel) 25 mg PO HS [facility]; Protocol Stop: 10/28/19 20:59 Last Admin: 09/11/19 21:36 Dose: Not Given Sodium Phosphate (Fleet Enema) 135 ml RC Q48HR PRN PRN Reason: If MOM & Dulcolax ineffective. Stop: 10/26/19 04:20 Zolpidem Tartrate (Ambien) 5 mg PO HSMR1 PRN PRN Reason: Insomnia Stop: 10/26/19 04:29 General: demented, NAD HEENT: NC/AT, PERRLA Neck: Supple, No JVD Lungs: other (no acute respiratory distress on RA) Cardiovascular: RRR Abdomen: soft, non-tender, non-distended Extremities: clear Neurological: no change Other physical findings: LLE scabs, L foot wound-dressing in place. Internal Medicine Assmt/Plan - Assessment Assessment: Schizoprenia Delusional Paraplegia HTN Neuropathy GERD Anemia - Plan Plan: Continue current treatment plan. Continue current medications Continue to monitor VS Monitor Diet/Nutritional support. Psych management per Psychiatry. Pain Management. PT/OT prn Safety precaution, Fall precaution, frequent nursing round. Supportive care. Continue collaborating with consulting specialists, case management and nursing team Wound care as needed Nutritional Asmnt/Malnutr-PDOC - Dietary Evaluation Malnutrition Findings (Please click <Entered> for more info): Nutritional Asmnt/Malnutrition Start: 08/31/19 14: 01 Text: Status: Complete Freq: Protocol: Document 08/31/19 14:01 CAROLYN (Rec: 08/31/19 14:09 CAROLYN [email or web address]) Nutritional Asmnt/Malnutrition Patient General Information Nutritional Screening Moderate Risk Diagnosis Psychosis Pertinent Medical Hx/Surgical Hx GERD, Paraplegia, Neuropathy, Anemia, HTN Subjective Information Pt is a 74-year-old female admitted on d/t increased agitation and refusal of care. Pt is eating an estimated 53% (average) of meals since admit date (x4 days) Per Meal/Nutrition Activity Record. Dietary is currently providing an estimated 2200 kcals and 115 gm Pro, per Pt PO intake this is providing an estimated 1166 kcals and 60gm Pro to meet 70 % kcal and 92% Pro needs. Visited pt in room after lunch , pt ate 100% of lunch and stated she was pleased with the food. She asked about salt on her tray, I provided education on her diet and why we are not putting salt on her tray. Pt stated she has not gotten her dentures yet, but the chopped texture we have been providing her is sufficient and she has no issues eating. Anthropometrics HT: 58 WT: 188 LB (85.45 kg) ABW:145 LB (65.68 kg) IBW: 130 LB (59.18 kg), IBW-7% for paraplegia BMI: 28.66 (Overweight) GI/ Skin Integrity GI: Soft, Non-tender, GERD BM: 08/30 x1 I/O: 1320/Not Noted Skin: Dryness, Area of Concern , LT lower [place] x3 scabs, RT abdominal fold open area [place]: 13 Diet Order: Cardiac Estimated Energy Needs: ( Geriatric, ABW, Paraplegic) 0810-8238 kcals (25-28 kcals/ kg) 65-80g Pro (1.0-1.2 g/kg) 9823-0395 ml (25-30 ml/kg) Current Diet Order/ Nutrition Support Cardiac Pertinent Medications Dulcolax (PRN), Colace, MOM ( PRN), Protonix, Fleet Enema ( PRN) Pertinent Labs 08/26: Glucose 138, Alb 3.3, Tags 184, Chol 303, LDL 208, HDL 48 Nutritional Hx/Data Height 5 ft 8 in Height (Calculated Centimeters) 172.7 Current Weight (lbs) 188 lb Weight (Calculated Kilograms) 85.3 Weight (Calculated Grams) 18645.4 [place] Body Weight 130 LB (59.18 kg) % [place] Body Weight 145 Body Mass Index (BMI) 28.5 Weight Status Overweight GI Symptoms GI Symptoms None Last BM 08/30 x1 Skin Integrity/Comment: Skin: Dryness, Area of Concern , LT lower [place] x3 scabs, RT abdominal fold open area [place]: 13 Current %PO Fair (50-74%) Estimated Nutritional Goals BEE in Kcals: Using Current wt Calories/Kcals/Kg 25-28 Kcals Calculated 3416-2582 Protein: Using Current wt Protein g/k.0-1.2 Protein Calculated 65-80 Fluid: ml 9980-1609 ml (25-30 ml/kg) Nutritional Problem 1. Problem Problem Altered nutrition related labs Etiology r/t pathophysiological causes Signs/Symptoms: aeb labs (08/26) Glucose 138, Alb 3.3, Tags 184, Chol 303, LDL 208, HDL 48 and Diet Rx Cardiac. Intervention/Recommendation Comments Continue Cardiac diet as tolerated. Expected Outcomes/Goals Expected Outcomes/Goals 1.PO intake to continue to meet 75% of estimated nutritional needs. 2.Monitor PO intake, wt, nutrition related labs, and skin integrity to trend WNL. 3.F/U as low risk in 7-10 days , 09/07-09/10
[2019-09-12] MEDS: Pantoprazole 40 mg EC Tab PO SCH (06:33)
[2019-09-12] MEDS: Eucerin Cream 16 oz Jar TP SCH ×2 (08:01→17:33)
[2019-09-12] MEDS ORDERED: Haloperidol Lactate 5 mg/mL 1mL Vial IM PRN (09:56)
--- NOTE | 2019-09-12 11:01 | Internal Medicine Prog Note ---
Internal Medicine Subjective - Subjective Service Date: 09/12/19 Patient seen and examined:: with staff Patient is:: awake, verbal, agitated, confused Patient Complaints of:: other Per staff patient has:: no adverse event, no episodes of fall, confused, refusing care, other (still angry and refuses medications) Internal Medicine Objective - Physical Exam Vitals and I&O: Vital Signs Temp 98.8 F 09/12/19 05:45 Pulse 93 09/12/19 05:45 Resp 17 09/12/19 08:00 BP 130/84 09/12/19 05:45 Pulse Ox 95 09/12/19 05:45 Intake & Output 09/11/19 09/12/19 09/12/19 18:59 06:59 18:59 Intake Total 850 252 Balance 850 252 Intake: Oral 850 252 Other: # Voids 2 # Bowel Movements 1 Active Medications: Current Medications Al Hydrox/Mg Hydrox/Simethicone (Maalox) 30 ml PO Q4HR PRN PRN Reason: GI DISTRESS Stop: 10/26/19 04:29 Bisacodyl (Dulcolax 10 Mg Supp) 10 mg RC DAILY PRN PRN Reason: Constipation Stop: 10/26/19 19:58 Diphenhydramine HCl (Benadryl 50 Mg/Ml) 25 mg IM BID PRN PRN Reason: Psychosis Stop: 11/11/19 10:00 Docusate Sodium (Colace) 200 mg PO DAILY MATHEW Stop: 10/26/19 08:59 Last Admin: 09/12/19 08:01 Dose: Not Given Gabapentin (Neurontin) 200 mg PO Q6HR MTAHEW Stop: 10/26/19 05:59 Last Admin: 09/12/19 06:33 Dose: Not Given Haloperidol (Haldol) 2 mg PO BID MATHEW; Protocol Stop: 11/11/19 16:59 Haloperidol (Haldol) 2 mg PO ONCE ONE Stop: 09/12/19 11:01 Last Admin: 09/12/19 10:58 Dose: Not Given Haloperidol Lactate (Haldol) 2 mg IM BID PRN PRN Reason: Agitation Stop: 11/11/19 09:55 Hydralazine HCl (Apresoline) 50 mg PO Q6HR PRN PRN Reason: if SBP > 160 or DBP > 100 Stop: 10/26/19 20:03 Ibuprofen (Advil) 200 mg PO Q6HR PRN PRN Reason: Pain (Mild 1-3) Stop: 10/26/19 04:20 Lorazepam (Ativan) 0.5 mg PO Q4HR PRN; Protocol PRN Reason: agitation Stop: 09/26/19 04:29 Magnesium Hydroxide (Milk Of Magnesia) 30 ml PO HS PRN PRN Reason: Constipation Stop: 10/26/19 04:20 Multi-Ingredient Cream (Eucerin Cream) 1 appl TP BID [facility] Stop: 10/30/19 16:59 Last Admin: 09/12/19 08:01 Dose: Not Given Nortriptyline HCl (Pamelor) 25 mg PO DAILY [facility] Stop: 10/26/19 08:59 Last Admin: 09/12/19 08:01 Dose: Not Given Pantoprazole Sodium (Protonix) 40 mg PO 0630 [facility] Stop: 10/27/19 06:29 Last Admin: 09/12/19 06:33 Dose: Not Given Sodium Phosphate (Fleet Enema) 135 ml RC Q48HR PRN PRN Reason: If MOM & Dulcolax ineffective. Stop: 10/26/19 04:20 Zolpidem Tartrate (Ambien) 5 mg PO HSMR1 PRN PRN Reason: Insomnia Stop: 10/26/19 04:29 Physical Exam: Patient needs to be closely monitored, patient is very paranoid, agitated, still screaming and yelling. General: demented, NAD HEENT: NC/AT, PERRLA Neck: Supple, No JVD Lungs: other (no acute respiratory distress on RA) Cardiovascular: RRR Abdomen: soft, non-tender, non-distended Extremities: clear Neurological: no change Internal Medicine Assmt/Plan - Assessment Assessment: Paranoia. Schizophrenia. Delusional. Increased Agitation. History of Bipolar disorder. History of Depression. History of Paraplegia. History of Neuropathy. History of Anemia. History of Gerd. - Plan Plan: Psych management as per Psych. Continue present meds as directed. Monitor vitals and labs. Pain management. Monitor diet and nutritional support. Fall precaution. Continue current treatment plan as ordered. Nutritional Asmnt/Malnutr-PDOC - Dietary Evaluation Malnutrition Findings (Please click <Entered> for more info): Nutritional Asmnt/Malnutrition Start: 08/31/19 14: 01 Text: Status: Complete Freq: Protocol: Document 08/31/19 14:01 CAROLYN (Rec: 08/31/19 14:09 CAROLYN [id number]) Nutritional Asmnt/Malnutrition Patient General Information Nutritional Screening Moderate Risk Diagnosis Psychosis Pertinent Medical Hx/Surgical Hx GERD, Paraplegia, Neuropathy, Anemia, HTN Subjective Information Pt is a 74-year-old female admitted on d/t increased agitation and refusal of care. Pt is eating an estimated 53% (average) of meals since admit date (x4 days) Per Meal/Nutrition Activity Record. Dietary is currently providing an estimated 2200 kcals and 115 gm Pro, per Pt PO intake this is providing an estimated 1166 kcals and 60gm Pro to meet 70 % kcal and 92% Pro needs. Visited pt in room after lunch , pt ate 100% of lunch and stated she was pleased with the food. She asked about salt on her tray, I provided education on her diet and why we are not putting salt on her tray. Pt stated she has not gotten her dentures yet, but the chopped texture we have been providing her is sufficient and she has no issues eating. Anthropometrics HT: 58 WT: 188 LB (85.45 kg) ABW:145 LB (65.68 kg) IBW: 130 LB (59.18 kg), IBW-7% for paraplegia BMI: 28.66 (Overweight) GI/ Skin Integrity GI: Soft, Non-tender, GERD BM: 08/30 x1 I/O: 1320/Not Noted Skin: Dryness, Area of Concern , LT lower leon x3 scabs, RT abdominal fold open area [place]: 13 Diet Order: Cardiac Estimated Energy Needs: ( Geriatric, ABW, Paraplegic) 4775-7654 kcals (25-28 kcals/ kg) 65-80g Pro (1.0-1.2 g/kg) 9428-7434 ml (25-30 ml/kg) Current Diet Order/ Nutrition Support Cardiac Pertinent Medications Dulcolax (PRN), Colace, MOM ( PRN), Protonix, Fleet Enema ( PRN) Pertinent Labs 08/26: Glucose 138, Alb 3.3, Tags 184, Chol 303, LDL 208, HDL 48 Nutritional Hx/Data Height 1.73 m Height (Calculated Centimeters) 172.7 Current Weight (lbs) 85.275 kg Weight (Calculated Kilograms) 85.3 Weight (Calculated Grams) 70452.4 [place] Body Weight 130 LB (59.18 kg) % [place] Body Weight 145 Body Mass Index (BMI) 28.5 Weight Status Overweight GI Symptoms GI Symptoms None Last BM 08/30 x1 Skin Integrity/Comment: Skin: Dryness, Area of Concern , LT lower leon x3 scabs, RT abdominal fold open area [place]: 13 Current %PO Fair (50-74%) Estimated Nutritional Goals BEE in Kcals: Using Current wt Calories/Kcals/Kg 25-28 Kcals Calculated 3188-2778 Protein: Using Current wt Protein g/k.0-1.2 Protein Calculated 65-80 Fluid: ml 4025-4977 ml (25-30 ml/kg) Nutritional Problem 1. Problem Problem Altered nutrition related labs Etiology r/t pathophysiological causes Signs/Symptoms: aeb labs (08/26) Glucose 138, Alb 3.3, Tags 184, Chol 303, LDL 208, HDL 48 and Diet Rx Cardiac. Intervention/Recommendation Comments Continue Cardiac diet as tolerated. Expected Outcomes/Goals Expected Outcomes/Goals 1.PO intake to continue to meet 75% of estimated nutritional needs. 2.Monitor PO intake, wt, nutrition related labs, and skin integrity to trend WNL. 3.F/U as low risk in 7-10 days , 09/07-09/10
[2019-09-13] MEDS: Pantoprazole 40 mg EC Tab PO SCH (06:31)
[2019-09-13] MEDS: Eucerin Cream 16 oz Jar TP SCH ×2 (09:25→16:11)
--- NOTE | 2019-09-13 12:32 | Progress Notes ---
DATE: 09/12/2019 The patient in hospital, unruly, agitated, cursing, yelling, using expletives, very verbally aggressive, highly impulsive, unpredictable, refusing treatment. Riese was upheld today. We will initiate Haldol, transition to Haldol Decanoate. We have not been able to place her because of her behaviors. JOB# [id number]
--- NOTE | 2019-09-13 17:26 | Internal Medicine Prog Note ---
Internal Medicine Subjective - Subjective Service Date: 09/13/19 Patient is:: awake, verbal, agitated, confused Patient Complaints of:: other Per staff patient has:: no adverse event, no episodes of fall, confused, refusing care, other (still angry and refuses medications) Internal Medicine Objective - Physical Exam Vitals and I&O: Vital Signs Temp 97.6 F 09/13/19 14:00 Pulse 87 09/13/19 14:00 Resp 20 09/13/19 14:00 BP 103/76 09/13/19 14:00 Pulse Ox 97 09/13/19 14:00 Intake & Output 09/12/19 09/13/19 09/13/19 18:59 06:59 18:59 Intake Total 800 240 Output Total 1 Balance 800 239 Intake: Oral 800 240 Output: Urine/Stool Mix 1 Other: # Voids 1 Active Medications: Current Medications Al Hydrox/Mg Hydrox/Simethicone (Maalox) 30 ml PO Q4HR PRN PRN Reason: GI DISTRESS Stop: 10/26/19 04:29 Bisacodyl (Dulcolax 10 Mg Supp) 10 mg RC DAILY PRN PRN Reason: Constipation Stop: 10/26/19 19:58 Diphenhydramine HCl (Benadryl 50 Mg/Ml) 25 mg IM BID PRN PRN Reason: Psychosis Stop: 11/11/19 10:00 Last Admin: 09/12/19 11:21 Dose: 25 mg Docusate Sodium (Colace) 200 mg PO DAILY MATHEW Stop: 10/26/19 08:59 Last Admin: 09/13/19 09:25 Dose: Not Given Gabapentin (Neurontin) 200 mg PO Q6HR MATHEW Stop: 10/26/19 05:59 Last Admin: 09/13/19 11:07 Dose: Not Given Haloperidol (Haldol) 3 mg PO BID MATHEW; Protocol Stop: 11/12/19 16:59 Last Admin: 09/13/19 16:16 Dose: 3 mg Haloperidol Lactate (Haldol) 2 mg IM BID PRN PRN Reason: Agitation if refused po haldol Stop: 11/11/19 09:55 Last Admin: 09/12/19 11:21 Dose: 2 mg Hydralazine HCl (Apresoline) 50 mg PO Q6HR PRN PRN Reason: if SBP > 160 or DBP > 100 Stop: 10/26/19 20:03 Ibuprofen (Advil) 200 mg PO Q6HR PRN PRN Reason: Pain (Mild 1-3) Stop: 10/26/19 04:20 Lorazepam (Ativan) 0.5 mg PO Q4HR PRN; Protocol PRN Reason: agitation Stop: 09/26/19 04:29 Magnesium Hydroxide (Milk Of Magnesia) 30 ml PO HS PRN PRN Reason: Constipation Stop: 10/26/19 04:20 Multi-Ingredient Cream (Eucerin Cream) 1 appl TP BID [facility] Stop: 10/30/19 16:59 Last Admin: 09/13/19 16:11 Dose: Not Given Nortriptyline HCl (Pamelor) 25 mg PO DAILY [facility] Stop: 10/26/19 08:59 Last Admin: 09/13/19 09:25 Dose: Not Given Pantoprazole Sodium (Protonix) 40 mg PO 0630 [facility] Stop: 10/27/19 06:29 Last Admin: 09/13/19 06:31 Dose: Not Given Sodium Phosphate (Fleet Enema) 135 ml RC Q48HR PRN PRN Reason: If MOM & Dulcolax ineffective. Stop: 10/26/19 04:20 Zolpidem Tartrate (Ambien) 5 mg PO HSMR1 PRN PRN Reason: Insomnia Stop: 10/26/19 04:29 General: demented, NAD HEENT: NC/AT, PERRLA Neck: Supple, No JVD Lungs: other (no acute respiratory distress on RA) Cardiovascular: RRR Abdomen: soft, non-tender, non-distended Extremities: clear Neurological: no change Internal Medicine Assmt/Plan - Assessment Assessment: Schizoprenia Delusional Paraplegia HTN Neuropathy GERD Anemia - Plan Plan: Continue current treatment plan. Continue current medications Continue to monitor VS Monitor Diet/Nutritional support. Psych management per Psychiatry. Pain Management. PT/OT prn Safety precaution, Fall precaution, frequent nursing round. Supportive care. Continue collaborating with consulting specialists, case management and nursing team Nutritional Asmnt/Malnutr-PDOC - Dietary Evaluation Malnutrition Findings (Please click <Entered> for more info): Nutritional Asmnt/Malnutrition Start: 08/31/19 14: 01 Text: Status: Complete Freq: Protocol: Document 08/31/19 14:01 CAROLYN (Rec: 08/31/19 14:09 CAROLYN [id number]) Nutritional Asmnt/Malnutrition Patient General Information Nutritional Screening Moderate Risk Diagnosis Psychosis Pertinent Medical Hx/Surgical Hx GERD, Paraplegia, Neuropathy, Anemia, HTN Subjective Information Pt is a 74-year-old female admitted on d/t increased agitation and refusal of care. Pt is eating an estimated 53% (average) of meals since admit date (x4 days) Per Meal/Nutrition Activity Record. Dietary is currently providing an estimated 2200 kcals and 115 gm Pro, per Pt PO intake this is providing an estimated 1166 kcals and 60gm Pro to meet 70 % kcal and 92% Pro needs. Visited pt in room after lunch , pt ate 100% of lunch and stated she was pleased with the food. She asked about salt on her tray, I provided education on her diet and why we are not putting salt on her tray. Pt stated she has not gotten her dentures yet, but the chopped texture we have been providing her is sufficient and she has no issues eating. Anthropometrics HT: 58 WT: 188 LB (85.45 kg) ABW:145 LB (65.68 kg) IBW: 130 LB (59.18 kg), IBW-7% for paraplegia BMI: 28.66 (Overweight) GI/ Skin Integrity GI: Soft, Non-tender, GERD BM: 08/30 x1 I/O: 1320/Not Noted Skin: Dryness, Area of Concern , LT lower leon x3 scabs, RT abdominal fold open area [place]: 13 Diet Order: Cardiac Estimated Energy Needs: ( Geriatric, ABW, Paraplegic) 6399-4691 kcals (25-28 kcals/ kg) 65-80g Pro (1.0-1.2 g/kg) 1553-5256 ml (25-30 ml/kg) Current Diet Order/ Nutrition Support Cardiac Pertinent Medications Dulcolax (PRN), Colace, MOM ( PRN), Protonix, Fleet Enema ( PRN) Pertinent Labs 08/26: Glucose 138, Alb 3.3, Tags 184, Chol 303, LDL 208, HDL 48 Nutritional Hx/Data Height 5 ft 8 in Height (Calculated Centimeters) 172.7 Current Weight (lbs) 188 lb Weight (Calculated Kilograms) 85.3 Weight (Calculated Grams) 84526.4 [place] Body Weight 130 LB (59.18 kg) % [place] Body Weight 145 Body Mass Index (BMI) 28.5 Weight Status Overweight GI Symptoms GI Symptoms None Last BM 08/30 x1 Skin Integrity/Comment: Skin: Dryness, Area of Concern , LT lower leon x3 scabs, RT abdominal fold open area [place]: 13 Current %PO Fair (50-74%) Estimated Nutritional Goals BEE in Kcals: Using Current wt Calories/Kcals/Kg 25-28 Kcals Calculated 9733-0282 Protein: Using Current wt Protein g/k.0-1.2 Protein Calculated 65-80 Fluid: ml 1699-9141 ml (25-30 ml/kg) Nutritional Problem 1. Problem Problem Altered nutrition related labs Etiology r/t pathophysiological causes Signs/Symptoms: aeb labs (08/26) Glucose 138, Alb 3.3, Tags 184, Chol 303, LDL 208, HDL 48 and Diet Rx Cardiac. Intervention/Recommendation Comments Continue Cardiac diet as tolerated. Expected Outcomes/Goals Expected Outcomes/Goals 1.PO intake to continue to meet 75% of estimated nutritional needs. 2.Monitor PO intake, wt, nutrition related labs, and skin integrity to trend WNL. 3.F/U as low risk in 7-10 days , 09/07-09/10
--- NOTE | 2019-09-13 20:35 | Progress Notes ---
DATE: 09/13/2019 SUBJECTIVE: The patient remains unruly; starts yelling, screaming, stating that people are aggravating her. She is extremely loud and states that she is a calm person, but she has always been here in the unit screaming and yelling and unruly. PLAN: I will be increasing dosing of the Risperdal for ongoing delusions. [facility]# [id number]
[2019-09-14] MEDS: Pantoprazole 40 mg EC Tab PO SCH (06:19)
[2019-09-14] MEDS: Eucerin Cream 16 oz Jar TP SCH ×2 (09:01→18:17)
--- NOTE | 2019-09-14 10:57 | Internal Medicine Prog Note ---
Internal Medicine Subjective - Subjective Service Date: 09/14/19 Patient seen and examined:: with staff Patient is:: awake, verbal, agitated, confused Patient Complaints of:: other Per staff patient has:: no adverse event, no episodes of fall, confused, refusing care, other (still angry and refuses medications) Internal Medicine Objective - Physical Exam Vitals and I&O: Vital Signs Temp 98.0 F 09/14/19 06:14 Pulse 95 09/14/19 06:14 Resp 20 09/14/19 06:14 BP 113/78 09/14/19 06:14 Pulse Ox 96 09/14/19 06:14 Intake & Output 09/13/19 09/14/19 09/14/19 18:59 06:59 18:59 Intake Total 1400 360 Output Total 1 Balance 1400 359 Intake: Oral 1400 360 Output: Urine/Stool Mix 1 Other: # Voids 4 2 # Bowel Movements 0 1 Active Medications: Current Medications Al Hydrox/Mg Hydrox/Simethicone (Maalox) 30 ml PO Q4HR PRN PRN Reason: GI DISTRESS Stop: 10/26/19 04:29 Bisacodyl (Dulcolax 10 Mg Supp) 10 mg RC DAILY PRN PRN Reason: IF MOM INEFFECTIVE Stop: 10/26/19 19:58 Diphenhydramine HCl (Benadryl 50 Mg/Ml) 25 mg IM BID PRN PRN Reason: Psychosis Stop: 11/11/19 10:00 Last Admin: 09/12/19 11:21 Dose: 25 mg Docusate Sodium (Colace) 200 mg PO DAILY [facility] Stop: 10/26/19 08:59 Last Admin: 09/13/19 09:25 Dose: Not Given Gabapentin (Neurontin) 200 mg PO Q6HR MATHEW Stop: 10/26/19 05:59 Last Admin: 09/14/19 06:00 Dose: Not Given Haloperidol (Haldol) 3 mg PO BID MATHEW; Protocol Stop: 11/12/19 16:59 Last Admin: 09/13/19 16:16 Dose: 3 mg Haloperidol Lactate (Haldol) 2 mg IM BID PRN PRN Reason: Agitation if refused po haldol Stop: 11/11/19 09:55 Last Admin: 09/12/19 11:21 Dose: 2 mg Hydralazine HCl (Apresoline) 50 mg PO Q6HR PRN PRN Reason: if SBP > 160 or DBP > 100 Stop: 10/26/19 20:03 Ibuprofen (Advil) 200 mg PO Q6HR PRN PRN Reason: Pain (Mild 1-3) Stop: 10/26/19 04:20 Lorazepam (Ativan) 0.5 mg PO Q4HR PRN; Protocol PRN Reason: agitation Stop: 09/26/19 04:29 Magnesium Hydroxide (Milk Of Magnesia) 30 ml PO HS PRN PRN Reason: Constipation Stop: 10/26/19 04:20 Multi-Ingredient Cream (Eucerin Cream) 1 appl TP BID MATHEW Stop: 10/30/19 16:59 Last Admin: 09/13/19 16:11 Dose: Not Given Nortriptyline HCl (Pamelor) 25 mg PO DAILY [facility] Stop: 10/26/19 08:59 Last Admin: 09/13/19 09:25 Dose: Not Given Pantoprazole Sodium (Protonix) 40 mg PO 0630 [facility] Stop: 10/27/19 06:29 Last Admin: 09/14/19 06:19 Dose: Not Given Sodium Phosphate (Fleet Enema) 135 ml RC Q48HR PRN PRN Reason: If MOM & Dulcolax ineffective. Stop: 10/26/19 04:20 Zolpidem Tartrate (Ambien) 5 mg PO HSMR1 PRN PRN Reason: Insomnia Stop: 10/26/19 04:29 Physical Exam: Patient needs to be closely monitored, patient is delusional, has been screaming and yelling, stating others are aggravating her. General: demented, NAD HEENT: NC/AT, PERRLA Neck: Supple, No JVD Lungs: other (no acute respiratory distress on RA) Cardiovascular: RRR Abdomen: soft, non-tender, non-distended Extremities: clear Neurological: no change Internal Medicine Assmt/Plan - Assessment Assessment: Paranoia. Schizophrenia. Delusional. Increased Agitation. History of Bipolar disorder. History of Depression. History of Paraplegia. History of Neuropathy. History of Anemia. History of Gerd. - Plan Plan: Psych management as per Psych. Continue present meds as directed. Monitor vitals and labs. Pain management. Monitor diet and nutritional support. Fall precaution. Continue current treatment plan as ordered. Nutritional Asmnt/Malnutr-PDOC - Dietary Evaluation Malnutrition Findings (Please click <Entered> for more info): Nutritional Asmnt/Malnutrition Start: 08/31/19 14: 01 Text: Status: Complete Freq: Protocol: Document 08/31/19 14:01 CAROLYN (Rec: 08/31/19 14:09 CAROLYN [id number]) Nutritional Asmnt/Malnutrition Patient General Information Nutritional Screening Moderate Risk Diagnosis Psychosis Pertinent Medical Hx/Surgical Hx GERD, Paraplegia, Neuropathy, Anemia, HTN Subjective Information Pt is a 74-year-old female admitted on d/t increased agitation and refusal of care. Pt is eating an estimated 53% (average) of meals since admit date (x4 days) Per Meal/Nutrition Activity Record. Dietary is currently providing an estimated 2200 kcals and 115 gm Pro, per Pt PO intake this is providing an estimated 1166 kcals and 60gm Pro to meet 70 % kcal and 92% Pro needs. Visited pt in room after lunch , pt ate 100% of lunch and stated she was pleased with the food. She asked about salt on her tray, I provided education on her diet and why we are not putting salt on her tray. Pt stated she has not gotten her dentures yet, but the chopped texture we have been providing her is sufficient and she has no issues eating. Anthropometrics HT: 58 WT: 188 LB (85.45 kg) ABW:145 LB (65.68 kg) IBW: 130 LB (59.18 kg), IBW-7% for paraplegia BMI: 28.66 (Overweight) GI/ Skin Integrity GI: Soft, Non-tender, GERD BM: 08/30 x1 I/O: 1320/Not Noted Skin: Dryness, Area of Concern , LT lower leon x3 scabs, RT abdominal fold open area [place]: 13 Diet Order: Cardiac Estimated Energy Needs: ( Geriatric, ABW, Paraplegic) 5902-1492 kcals (25-28 kcals/ kg) 65-80g Pro (1.0-1.2 g/kg) 2285-1944 ml (25-30 ml/kg) Current Diet Order/ Nutrition Support Cardiac Pertinent Medications Dulcolax (PRN), Colace, MOM ( PRN), Protonix, Fleet Enema ( PRN) Pertinent Labs 08/26: Glucose 138, Alb 3.3, Tags 184, Chol 303, LDL 208, HDL 48 Nutritional Hx/Data Height 1.73 m Height (Calculated Centimeters) 172.7 Current Weight (lbs) 85.275 kg Weight (Calculated Kilograms) 85.3 Weight (Calculated Grams) 55502.4 [place] Body Weight 130 LB (59.18 kg) % [place] Body Weight 145 Body Mass Index (BMI) 28.5 Weight Status Overweight GI Symptoms GI Symptoms None Last BM 08/30 x1 Skin Integrity/Comment: Skin: Dryness, Area of Concern , LT lower leon x3 scabs, RT abdominal fold open area [place]: 13 Current %PO Fair (50-74%) Estimated Nutritional Goals BEE in Kcals: Using Current wt Calories/Kcals/Kg 25-28 Kcals Calculated 1498-2384 Protein: Using Current wt Protein g/k.0-1.2 Protein Calculated 65-80 Fluid: ml 7801-2847 ml (25-30 ml/kg) Nutritional Problem 1. Problem Problem Altered nutrition related labs Etiology r/t pathophysiological causes Signs/Symptoms: aeb labs (08/26) Glucose 138, Alb 3.3, Tags 184, Chol 303, LDL 208, HDL 48 and Diet Rx Cardiac. Intervention/Recommendation Comments Continue Cardiac diet as tolerated. Expected Outcomes/Goals Expected Outcomes/Goals 1.PO intake to continue to meet 75% of estimated nutritional needs. 2.Monitor PO intake, wt, nutrition related labs, and skin integrity to trend WNL. 3.F/U as low risk in 7-10 days , 09/07-09/10
[2019-09-14] MEDS: Venelex 60gm Tube TP SCH (18:17)
[2019-09-15] MEDS: Pantoprazole 40 mg EC Tab PO SCH (06:11)
[2019-09-15] MEDS: Venelex 60gm Tube TP SCH (09:40)
[2019-09-15] MEDS: Eucerin Cream 16 oz Jar TP SCH ×2 (09:41→17:07)
--- NOTE | 2019-09-15 10:13 | Progress Notes ---
DATE: 09/14/2019 Case was discussed with staff of the patient, reviewed records. The patient is a well-known case, I am seeing before covering for Dr. Carrera. The patient apparently was riesed ,The patient continues to be paranoid, continues to need redirection with episodes of yelling and screaming, believe people are aggravating her, very loud. The patient has been on Risperdal. No side effects with the medication, no sedation, no nausea, no extrapyramidal symptoms. We will continue outpatient group therapy, milieu therapy, adjust her medication as needed. JOB# [id number] RAGHU
--- NOTE | 2019-09-15 10:13 | Progress Notes ---
DATE: 09/13/2019 ADDENDUM I will be increasing dosing of Haldol today, not Risperdal. The patient was Riesed, has IM backup of Haldol. We will transition to Haldol Decanoate. JOB# [id number]
--- NOTE | 2019-09-15 14:03 | Internal Medicine Prog Note ---
Internal Medicine Subjective - Subjective Service Date: 09/15/19 Patient is:: awake, verbal, agitated, confused Patient Complaints of:: other Per staff patient has:: no adverse event, no episodes of fall, confused, refusing care, other (still angry and refuses medications) Internal Medicine Objective - Physical Exam Vitals and I&O: Vital Signs Temp 98.1 F 09/15/19 06:13 Pulse 89 09/15/19 06:13 Resp 20 09/15/19 06:13 BP 111/65 09/15/19 06:13 Pulse Ox 95 09/15/19 06:13 Intake & Output 09/14/19 09/15/19 09/15/19 18:59 06:59 18:59 Intake Total 800 120 Balance 800 120 Intake: Oral 800 120 Other: # Voids 4 2 # Bowel Movements 0 0 Active Medications: Current Medications Al Hydrox/Mg Hydrox/Simethicone (Maalox) 30 ml PO Q4HR PRN PRN Reason: GI DISTRESS Stop: 10/26/19 04:29 Bisacodyl (Dulcolax 10 Mg Supp) 10 mg RC DAILY PRN PRN Reason: IF MOM INEFFECTIVE Stop: 10/26/19 19:58 [place] Oil/[place] Balsam/Trypsin (Venelex) 1 appl TP DAILY MATHEW Stop: 11/13/19 15:59 Last Admin: 09/15/19 09:40 Dose: 1 appl Diphenhydramine HCl (Benadryl 50 Mg/Ml) 25 mg IM BID PRN PRN Reason: Psychosis Stop: 11/11/19 10:00 Last Admin: 09/12/19 11:21 Dose: 25 mg Docusate Sodium (Colace) 200 mg PO DAILY MATHEW Stop: 10/26/19 08:59 Last Admin: 09/15/19 09:41 Dose: Not Given Gabapentin (Neurontin) 200 mg PO Q6HR MATHEW Stop: 10/26/19 05:59 Last Admin: 09/15/19 12:15 Dose: Not Given Haloperidol (Haldol) 3 mg PO BID MATHEW; Protocol Stop: 11/12/19 16:59 Last Admin: 09/15/19 09:42 Dose: 3 mg Haloperidol Decanoate (Haldol Dec) 50 mg IM QMONTH MATHEW; Protocol Stop: 11/14/19 12:44 Haloperidol Lactate (Haldol) 2 mg IM BID PRN PRN Reason: Agitation if refused po haldol Stop: 11/11/19 09:55 Last Admin: 09/12/19 11:21 Dose: 2 mg Hydralazine HCl (Apresoline) 50 mg PO Q6HR PRN PRN Reason: if SBP > 160 or DBP > 100 Stop: 10/26/19 20:03 Ibuprofen (Advil) 200 mg PO Q6HR PRN PRN Reason: Pain (Mild 1-3) Stop: 10/26/19 04:20 Lorazepam (Ativan) 0.5 mg PO Q4HR PRN; Protocol PRN Reason: agitation Stop: 09/26/19 04:29 Magnesium Hydroxide (Milk Of Magnesia) 30 ml PO HS PRN PRN Reason: Constipation Stop: 10/26/19 04:20 Multi-Ingredient Cream (Eucerin Cream) 1 appl TP BID MATHEW Stop: 10/30/19 16:59 Last Admin: 09/15/19 09:41 Dose: 1 appl Nortriptyline HCl (Pamelor) 25 mg PO DAILY [facility] Stop: 10/26/19 08:59 Last Admin: 09/15/19 09:48 Dose: Not Given Pantoprazole Sodium (Protonix) 40 mg PO 0630 MATHEW Stop: 10/27/19 06:29 Last Admin: 09/15/19 06:11 Dose: Not Given Sodium Phosphate (Fleet Enema) 135 ml RC Q48HR PRN PRN Reason: If MOM & Dulcolax ineffective. Stop: 10/26/19 04:20 Zolpidem Tartrate (Ambien) 5 mg PO HSMR1 PRN PRN Reason: Insomnia Stop: 10/26/19 04:29 General: demented, NAD HEENT: NC/AT, PERRLA Neck: Supple, No JVD Lungs: other (no acute respiratory distress on RA) Cardiovascular: RRR Abdomen: soft, non-tender, non-distended Extremities: clear Neurological: no change Internal Medicine Assmt/Plan - Assessment Assessment: Schizoprenia Delusional Paraplegia HTN Neuropathy GERD Anemia - Plan Plan: Continue current treatment plan. Continue current medications Continue to monitor VS Monitor Diet/Nutritional support. Psych management per Psychiatry. Pain Management. PT/OT prn Safety precaution, Fall precaution, frequent nursing round. Supportive care. Continue collaborating with consulting specialists, case management and nursing team Nutritional Asmnt/Malnutr-PDOC - Dietary Evaluation Malnutrition Findings (Please click <Entered> for more info): Nutritional Asmnt/Malnutrition Start: 08/31/19 14: 01 Text: Status: Complete Freq: Protocol: Document 08/31/19 14:01 CAROLYN (Rec: 08/31/19 14:09 CAROLYN [email or web address]) Nutritional Asmnt/Malnutrition Patient General Information Nutritional Screening Moderate Risk Diagnosis Psychosis Pertinent Medical Hx/Surgical Hx GERD, Paraplegia, Neuropathy, Anemia, HTN Subjective Information Pt is a 74-year-old female admitted on d/t increased agitation and refusal of care. Pt is eating an estimated 53% (average) of meals since admit date (x4 days) Per Meal/Nutrition Activity Record. Dietary is currently providing an estimated 2200 kcals and 115 gm Pro, per Pt PO intake this is providing an estimated 1166 kcals and 60gm Pro to meet 70 % kcal and 92% Pro needs. Visited pt in room after lunch , pt ate 100% of lunch and stated she was pleased with the food. She asked about salt on her tray, I provided education on her diet and why we are not putting salt on her tray. Pt stated she has not gotten her dentures yet, but the chopped texture we have been providing her is sufficient and she has no issues eating. Anthropometrics HT: 58 WT: 188 LB (85.45 kg) ABW:145 LB (65.68 kg) IBW: 130 LB (59.18 kg), IBW-7% for paraplegia BMI: 28.66 (Overweight) GI/ Skin Integrity GI: Soft, Non-tender, GERD BM: 08/30 x1 I/O: 1320/Not Noted Skin: Dryness, Area of Concern , LT lower leon x3 scabs, RT abdominal fold open area [place]: 13 Diet Order: Cardiac Estimated Energy Needs: ( Geriatric, ABW, Paraplegic) 3637-8420 kcals (25-28 kcals/ kg) 65-80g Pro (1.0-1.2 g/kg) 7536-8080 ml (25-30 ml/kg) Current Diet Order/ Nutrition Support Cardiac Pertinent Medications Dulcolax (PRN), Colace, MOM ( PRN), Protonix, Fleet Enema ( PRN) Pertinent Labs 08/26: Glucose 138, Alb 3.3, Tags 184, Chol 303, LDL 208, HDL 48 Nutritional Hx/Data Height 5 ft 8 in Height (Calculated Centimeters) 172.7 Current Weight (lbs) 188 lb Weight (Calculated Kilograms) 85.3 Weight (Calculated Grams) 04425.4 [place] Body Weight 130 LB (59.18 kg) % [place] Body Weight 145 Body Mass Index (BMI) 28.5 Weight Status Overweight GI Symptoms GI Symptoms None Last BM 08/30 x1 Skin Integrity/Comment: Skin: Dryness, Area of Concern , LT lower leon x3 scabs, RT abdominal fold open area [place]: 13 Current %PO Fair (50-74%) Estimated Nutritional Goals BEE in Kcals: Using Current wt Calories/Kcals/Kg 25-28 Kcals Calculated 5299-4412 Protein: Using Current wt Protein g/k.0-1.2 Protein Calculated 65-80 Fluid: ml 8799-2727 ml (25-30 ml/kg) Nutritional Problem 1. Problem Problem Altered nutrition related labs Etiology r/t pathophysiological causes Signs/Symptoms: aeb labs (08/26) Glucose 138, Alb 3.3, Tags 184, Chol 303, LDL 208, HDL 48 and Diet Rx Cardiac. Intervention/Recommendation Comments Continue Cardiac diet as tolerated. Expected Outcomes/Goals Expected Outcomes/Goals 1.PO intake to continue to meet 75% of estimated nutritional needs. 2.Monitor PO intake, wt, nutrition related labs, and skin integrity to trend WNL. 3.F/U as low risk in 7-10 days , 09/07-09/10
--- NOTE | 2019-09-16 00:02 | Progress Notes ---
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 The patient stating that the patient's right side of the care was "crack" and that is why she did not want to talk to her, telling me that I "smell bad and look bad" I don't like you," "I don't like the country you are from." The patient is grandiose, telling the staff she has a lot of money. PLAN: We will continue to monitor and initiate Haldol Decanoate. JOB# [id number]
[2019-09-16] MEDS: Pantoprazole 40 mg EC Tab PO SCH (06:41)
[2019-09-16] MEDS: Venelex 60gm Tube TP SCH (08:39)
[2019-09-16] MEDS: Eucerin Cream 16 oz Jar TP SCH ×2 (09:13→17:04)
--- NOTE | 2019-09-16 12:29 | Internal Medicine Prog Note ---
Internal Medicine Subjective - Subjective Service Date: 09/16/19 Patient seen and examined:: with staff Patient is:: awake, verbal, agitated, confused Patient Complaints of:: other Per staff patient has:: no adverse event, no episodes of fall, confused, refusing care, other (still angry and refuses medications) Internal Medicine Objective - Physical Exam Vitals and I&O: Vital Signs Temp 98.2 F 09/16/19 06:23 Pulse 67 09/16/19 06:23 Resp 17 09/16/19 08:00 BP 122/74 09/16/19 06:23 Pulse Ox 98 09/16/19 06:23 Intake & Output 09/15/19 09/16/19 09/16/19 18:59 06:59 18:59 Intake Total 1200 120 Balance 1200 120 Intake: Oral 1200 120 Other: # Voids 3 # Bowel Movements 1 Active Medications: Current Medications Al Hydrox/Mg Hydrox/Simethicone (Maalox) 30 ml PO Q4HR PRN PRN Reason: GI DISTRESS Stop: 10/26/19 04:29 Bisacodyl (Dulcolax 10 Mg Supp) 10 mg RC DAILY PRN PRN Reason: IF MOM INEFFECTIVE Stop: 10/26/19 19:58 [place] Oil/[place] Balsam/Trypsin (Venelex) 1 appl TP DAILY MATHEW Stop: 11/13/19 15:59 Last Admin: 09/16/19 08:39 Dose: 1 appl Diphenhydramine HCl (Benadryl 50 Mg/Ml) 25 mg IM BID PRN PRN Reason: Psychosis Stop: 11/11/19 10:00 Last Admin: 09/12/19 11:21 Dose: 25 mg Docusate Sodium (Colace) 200 mg PO DAILY MATHEW Stop: 10/26/19 08:59 Last Admin: 09/16/19 08:33 Dose: 200 mg Gabapentin (Neurontin) 200 mg PO Q6HR MATHEW Stop: 10/26/19 05:59 Last Admin: 09/16/19 06:41 Dose: Not Given Haloperidol (Haldol) 3 mg PO BID MATHEW; Protocol Stop: 11/12/19 16:59 Last Admin: 09/16/19 08:32 Dose: 3 mg Haloperidol Decanoate (Haldol Dec) 50 mg IM QMONTH [facility]; Protocol Stop: 11/14/19 12:44 Last Admin: 09/15/19 18:40 Dose: 50 mg Haloperidol Lactate (Haldol) 2 mg IM BID PRN PRN Reason: Agitation if refused po haldol Stop: 11/11/19 09:55 Last Admin: 09/12/19 11:21 Dose: 2 mg Hydralazine HCl (Apresoline) 50 mg PO Q6HR PRN PRN Reason: if SBP > 160 or DBP > 100 Stop: 10/26/19 20:03 Ibuprofen (Advil) 200 mg PO Q6HR PRN PRN Reason: Pain (Mild 1-3) Stop: 10/26/19 04:20 Lorazepam (Ativan) 0.5 mg PO Q4HR PRN; Protocol PRN Reason: agitation Stop: 09/26/19 04:29 Magnesium Hydroxide (Milk Of Magnesia) 30 ml PO HS PRN PRN Reason: Constipation Stop: 10/26/19 04:20 Multi-Ingredient Cream (Eucerin Cream) 1 appl TP BID MATHEW Stop: 10/30/19 16:59 Last Admin: 09/16/19 09:13 Dose: 1 appl Nortriptyline HCl (Pamelor) 25 mg PO DAILY MATHEW Stop: 10/26/19 08:59 Last Admin: 09/16/19 08:39 Dose: 25 mg Pantoprazole Sodium (Protonix) 40 mg PO 0630 MATHEW Stop: 10/27/19 06:29 Last Admin: 09/16/19 06:41 Dose: Not Given Sodium Phosphate (Fleet Enema) 135 ml RC Q48HR PRN PRN Reason: If MOM & Dulcolax ineffective. Stop: 10/26/19 04:20 Zolpidem Tartrate (Ambien) 5 mg PO HSMR1 PRN PRN Reason: Insomnia Stop: 10/26/19 04:29 Physical Exam: Patient needs to be closely monitored, patient is very agitated, dis-oriented, very hostile towards staff. General: demented, NAD HEENT: NC/AT, PERRLA Neck: Supple, No JVD Lungs: other (no acute respiratory distress on RA) Cardiovascular: RRR Abdomen: soft, non-tender, non-distended Extremities: clear Neurological: no change Internal Medicine Assmt/Plan - Assessment Assessment: Paranoia. Schizophrenia. Delusional. Increased Agitation. History of Bipolar disorder. History of Depression. History of Paraplegia. History of Neuropathy. History of Anemia. History of Gerd. - Plan Plan: Psych management as per Psych. Continue present meds as directed. Monitor vitals and labs. Pain management. Monitor diet and nutritional support. Fall precaution. Continue current treatment plan as ordered. Nutritional Asmnt/Malnutr-PDOC - Dietary Evaluation Malnutrition Findings (Please click <Entered> for more info): Nutritional Asmnt/Malnutrition Start: 08/31/19 14: 01 Text: Status: Complete Freq: Protocol: Document 08/31/19 14:01 CAROLYN (Rec: 08/31/19 14:09 CAROLYN [email or web address]) Nutritional Asmnt/Malnutrition Patient General Information Nutritional Screening Moderate Risk Diagnosis Psychosis Pertinent Medical Hx/Surgical Hx GERD, Paraplegia, Neuropathy, Anemia, HTN Subjective Information Pt is a 74-year-old female admitted on d/t increased agitation and refusal of care. Pt is eating an estimated 53% (average) of meals since admit date (x4 days) Per Meal/Nutrition Activity Record. Dietary is currently providing an estimated 2200 kcals and 115 gm Pro, per Pt PO intake this is providing an estimated 1166 kcals and 60gm Pro to meet 70 % kcal and 92% Pro needs. Visited pt in room after lunch , pt ate 100% of lunch and stated she was pleased with the food. She asked about salt on her tray, I provided education on her diet and why we are not putting salt on her tray. Pt stated she has not gotten her dentures yet, but the chopped texture we have been providing her is sufficient and she has no issues eating. Anthropometrics HT: 58 WT: 188 LB (85.45 kg) ABW:145 LB (65.68 kg) IBW: 130 LB (59.18 kg), IBW-7% for paraplegia BMI: 28.66 (Overweight) GI/ Skin Integrity GI: Soft, Non-tender, GERD BM: 08/30 x1 I/O: 1320/Not Noted Skin: Dryness, Area of Concern , LT lower [place]on x3 scabs, RT abdominal fold open area [place]: 13 Diet Order: Cardiac Estimated Energy Needs: ( Geriatric, ABW, Paraplegic) 3506-7985 kcals (25-28 kcals/ kg) 65-80g Pro (1.0-1.2 g/kg) 0722-2867 ml (25-30 ml/kg) Current Diet Order/ Nutrition Support Cardiac Pertinent Medications Dulcolax (PRN), Colace, MOM ( PRN), Protonix, Fleet Enema ( PRN) Pertinent Labs 08/26: Glucose 138, Alb 3.3, Tags 184, Chol 303, LDL 208, HDL 48 Nutritional Hx/Data Height 1.73 m Height (Calculated Centimeters) 172.7 Current Weight (lbs) 85.275 kg Weight (Calculated Kilograms) 85.3 Weight (Calculated Grams) 67687.4 [place] Body Weight 130 LB (59.18 kg) % [place] Body Weight 145 Body Mass Index (BMI) 28.5 Weight Status Overweight GI Symptoms GI Symptoms None Last BM 08/30 x1 Skin Integrity/Comment: Skin: Dryness, Area of Concern , LT lower leon x3 scabs, RT abdominal fold open area [place]: 13 Current %PO Fair (50-74%) Estimated Nutritional Goals BEE in Kcals: Using Current wt Calories/Kcals/Kg 25-28 Kcals Calculated 3698-4938 Protein: Using Current wt Protein g/k.0-1.2 Protein Calculated 65-80 Fluid: ml 0775-1363 ml (25-30 ml/kg) Nutritional Problem 1. Problem Problem Altered nutrition related labs Etiology r/t pathophysiological causes Signs/Symptoms: aeb labs (08/26) Glucose 138, Alb 3.3, Tags 184, Chol 303, LDL 208, HDL 48 and Diet Rx Cardiac. Intervention/Recommendation Comments Continue Cardiac diet as tolerated. Expected Outcomes/Goals Expected Outcomes/Goals 1.PO intake to continue to meet 75% of estimated nutritional needs. 2.Monitor PO intake, wt, nutrition related labs, and skin integrity to trend WNL. 3.F/U as low risk in 7-10 days , 09/07-09/10
--- NOTE | 2019-09-16 16:00 | Progress Notes ---
DATE: 09/16/2019 SUBJECTIVE: The patient in the hospital, angry, yelling, talking about the staff, very agitated, verbally aggressive, resistant to care, argumentative, ongoing grandiosities, delusions, currently on Haldol Decanoate, still under a [place] petition. We are also trying to figure out where the patient is going to go when she leaves here. We will coordinate care with Pharmacy Coordinator, She has been resistant to even speaking with Pharmacy Coordinator. 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 JOB# [id number]
[2019-09-17] MEDS: Pantoprazole 40 mg EC Tab PO SCH (06:30)
[2019-09-17] MEDS: Eucerin Cream 16 oz Jar TP SCH ×2 (09:52→17:51)
[2019-09-17] MEDS: Venelex 60gm Tube TP SCH (09:52)
--- NOTE | 2019-09-17 13:13 | Internal Medicine Prog Note ---
Internal Medicine Subjective - Subjective Patient is:: awake, verbal, agitated, confused Patient Complaints of:: other Per staff patient has:: no adverse event, no episodes of fall, confused, refusing care, other (still angry and refuses medications) Internal Medicine Objective - Physical Exam Vitals and I&O: Vital Signs Temp 97.7 F 09/17/19 06:00 Pulse 74 09/17/19 06:00 Resp 17 09/17/19 08:00 BP 135/74 09/17/19 06:00 Pulse Ox 99 09/17/19 06:00 Intake & Output 09/16/19 09/17/19 09/17/19 18:59 06:59 18:59 Intake Total 1200 300 Output Total 1 Balance 1200 299 Intake: Oral 1200 300 Output: Urine/Stool Mix 1 Other: # Voids 1 # Bowel Movements 1 0 Active Medications: Current Medications Al Hydrox/Mg Hydrox/Simethicone (Maalox) 30 ml PO Q4HR PRN PRN Reason: GI DISTRESS Stop: 10/26/19 04:29 Bisacodyl (Dulcolax 10 Mg Supp) 10 mg RC DAILY PRN PRN Reason: IF MOM INEFFECTIVE Stop: 10/26/19 19:58 [place] Oil/[place] Balsam/Trypsin (Venelex) 1 appl TP DAILY MATHEW Stop: 11/13/19 15:59 Last Admin: 09/17/19 09:52 Dose: 1 appl Diphenhydramine HCl (Benadryl 50 Mg/Ml) 25 mg IM BID PRN PRN Reason: Psychosis Stop: 11/11/19 10:00 Last Admin: 09/12/19 11:21 Dose: 25 mg Docusate Sodium (Colace) 200 mg PO DAILY MATHEW Stop: 10/26/19 08:59 Last Admin: 09/17/19 08:48 Dose: Not Given Gabapentin (Neurontin) 200 mg PO Q6HR MATHEW Stop: 10/26/19 05:59 Last Admin: 09/17/19 12:25 Dose: Not Given Haloperidol (Haldol) 3 mg PO BID MATHEW; Protocol Stop: 11/12/19 16:59 Last Admin: 09/17/19 08:47 Dose: 3 mg Haloperidol Decanoate (Haldol Dec) 50 mg IM QMONTH MATHEW; Protocol Stop: 11/14/19 12:44 Last Admin: 09/15/19 18:40 Dose: 50 mg Haloperidol Lactate (Haldol) 2 mg IM BID PRN PRN Reason: Agitation if refused po haldol Stop: 11/11/19 09:55 Last Admin: 09/12/19 11:21 Dose: 2 mg Hydralazine HCl (Apresoline) 50 mg PO Q6HR PRN PRN Reason: if SBP > 160 or DBP > 100 Stop: 10/26/19 20:03 Ibuprofen (Advil) 200 mg PO Q6HR PRN PRN Reason: Pain (Mild 1-3) Stop: 10/26/19 04:20 Lorazepam (Ativan) 0.5 mg PO Q4HR PRN; Protocol PRN Reason: agitation Stop: 09/26/19 04:29 Magnesium Hydroxide (Milk Of Magnesia) 30 ml PO HS PRN PRN Reason: Constipation Stop: 10/26/19 04:20 Multi-Ingredient Cream (Eucerin Cream) 1 appl TP BID MATHEW Stop: 10/30/19 16:59 Last Admin: 09/17/19 09:52 Dose: 1 appl Nortriptyline HCl (Pamelor) 25 mg PO DAILY MATHEW Stop: 10/26/19 08:59 Last Admin: 09/17/19 08:48 Dose: Not Given Pantoprazole Sodium (Protonix) 40 mg PO 0630 MATHEW Stop: 10/27/19 06:29 Last Admin: 09/16/19 06:41 Dose: Not Given Sodium Phosphate (Fleet Enema) 135 ml RC Q48HR PRN PRN Reason: If MOM & Dulcolax ineffective. Stop: 10/26/19 04:20 Zolpidem Tartrate (Ambien) 5 mg PO HSMR1 PRN PRN Reason: Insomnia Stop: 10/26/19 04:29 General: demented, NAD HEENT: NC/AT, PERRLA Neck: Supple, No JVD Lungs: other (no acute respiratory distress on RA) Cardiovascular: RRR Abdomen: soft, non-tender, non-distended Extremities: clear Neurological: no change Internal Medicine Assmt/Plan - Assessment Assessment: Schizoprenia Delusional Paraplegia HTN Neuropathy GERD Anemia - Plan Plan: Continue current treatment plan. Continue current medications Continue to monitor VS Monitor Diet/Nutritional support. Psych management per Psychiatry. Pain Management. PT/OT prn Safety precaution, Fall precaution, frequent nursing round. Supportive care. Continue collaborating with consulting specialists, case management and nursing team Wound care as needed Nutritional Asmnt/Malnutr-PDOC - Dietary Evaluation Malnutrition Findings (Please click <Entered> for more info): Nutritional Asmnt/Malnutrition Start: 08/31/19 14: 01 Text: Status: Complete Freq: Protocol: Document 08/31/19 14:01 KALYANIRACHELLENUNU (Rec: 08/31/19 14:09 KALYANIRACHELLENUNU [email or web address]) Nutritional Asmnt/Malnutrition Patient General Information Nutritional Screening Moderate Risk Diagnosis Psychosis Pertinent Medical Hx/Surgical Hx GERD, Paraplegia, Neuropathy, Anemia, HTN Subjective Information Pt is a 74-year-old female admitted on d/t increased agitation and refusal of care. Pt is eating an estimated 53% (average) of meals since admit date (x4 days) Per Meal/Nutrition Activity Record. Dietary is currently providing an estimated 2200 kcals and 115 gm Pro, per Pt PO intake this is providing an estimated 1166 kcals and 60gm Pro to meet 70 % kcal and 92% Pro needs. Visited pt in room after lunch , pt ate 100% of lunch and stated she was pleased with the food. She asked about salt on her tray, I provided education on her diet and why we are not putting salt on her tray. Pt stated she has not gotten her dentures yet, but the chopped texture we have been providing her is sufficient and she has no issues eating. Anthropometrics HT: 58 WT: 188 LB (85.45 kg) ABW:145 LB (65.68 kg) IBW: 130 LB (59.18 kg), IBW-7% for paraplegia BMI: 28.66 (Overweight) GI/ Skin Integrity GI: Soft, Non-tender, GERD BM: 08/30 x1 I/O: 1320/Not Noted Skin: Dryness, Area of Concern , LT lower [place] x3 scabs, RT abdominal fold open area [place]: 13 Diet Order: Cardiac Estimated Energy Needs: ( Geriatric, ABW, Paraplegic) 7584-9617 kcals (25-28 kcals/ kg) 65-80g Pro (1.0-1.2 g/kg) 3052-9917 ml (25-30 ml/kg) Current Diet Order/ Nutrition Support Cardiac Pertinent Medications Dulcolax (PRN), Colace, MOM ( PRN), Protonix, Fleet Enema ( PRN) Pertinent Labs 08/26: Glucose 138, Alb 3.3, Tags 184, Chol 303, LDL 208, HDL 48 Nutritional Hx/Data Height 5 ft 8 in Height (Calculated Centimeters) 172.7 Current Weight (lbs) 188 lb Weight (Calculated Kilograms) 85.3 Weight (Calculated Grams) 00188.4 [place] Body Weight 130 LB (59.18 kg) % [place] Body Weight 145 Body Mass Index (BMI) 28.5 Weight Status Overweight GI Symptoms GI Symptoms None Last BM 08/30 x1 Skin Integrity/Comment: Skin: Dryness, Area of Concern , LT lower leon x3 scabs, RT abdominal fold open area [place]: 13 Current %PO Fair (50-74%) Estimated Nutritional Goals BEE in Kcals: Using Current wt Calories/Kcals/Kg 25-28 Kcals Calculated 5845-9383 Protein: Using Current wt Protein g/k.0-1.2 Protein Calculated 65-80 Fluid: ml 0539-8216 ml (25-30 ml/kg) Nutritional Problem 1. Problem Problem Altered nutrition related labs Etiology r/t pathophysiological causes Signs/Symptoms: aeb labs (08/26) Glucose 138, Alb 3.3, Tags 184, Chol 303, LDL 208, HDL 48 and Diet Rx Cardiac. Intervention/Recommendation Comments Continue Cardiac diet as tolerated. Expected Outcomes/Goals Expected Outcomes/Goals 1.PO intake to continue to meet 75% of estimated nutritional needs. 2.Monitor PO intake, wt, nutrition related labs, and skin integrity to trend WNL. 3.F/U as low risk in 7-10 days , 09/07-09/10
--- NOTE | 2019-09-17 18:11 | Psych Progress Note ---
Psych Progress Note - Intro Date of Progress Note: 09/17/19 - Assessment Assessment: Patient interviewed, case discussed with staff, chart and records were reviewed. The patient has been angry labile with poor insight and poor impulse control. 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 She is highly angry and impulsive and uncooperative with the interview. She is yelling and cursing at this provider and interview had to be terminated. No side effects to medications have been noted. - Vitals, I&O Vitals: Vital Signs - 24 hr 09/16/19 09/17/19 09/17/19 19:47 06:00 08:00 Temp 98 F 97.7 F HR 91 74 RR 20 19 17 BP 124/69 135/74 O2 Sat % 96 99 09/17/19 15:11 Temp 97.9 F HR 78 RR 20 BP 117/56 O2 Sat % 98 - Plan Plan: Continue current treatment plan. Monitor behavior. - Review of Relevant Data Review of Relevant Data: I have reviewed the following items and time brina (where applicable) has been applied. - Medications Current Medications: Current Medications Al Hydrox/Mg Hydrox/Simethicone (Maalox) 30 ml PO Q4HR PRN PRN Reason: GI DISTRESS Stop: 10/26/19 04:29 Bisacodyl (Dulcolax 10 Mg Supp) 10 mg RC DAILY PRN PRN Reason: IF MOM INEFFECTIVE Stop: 10/26/19 19:58 [place] Oil/[place] Balsam/Trypsin (Venelex) 1 appl TP DAILY MATHEW Stop: 11/13/19 15:59 Last Admin: 09/17/19 09:52 Dose: 1 appl Diphenhydramine HCl (Benadryl 50 Mg/Ml) 25 mg IM BID PRN PRN Reason: Psychosis Stop: 11/11/19 10:00 Last Admin: 09/12/19 11:21 Dose: 25 mg Docusate Sodium (Colace) 200 mg PO DAILY MATHEW Stop: 10/26/19 08:59 Last Admin: 09/17/19 08:48 Dose: Not Given Gabapentin (Neurontin) 200 mg PO Q6HR MATHEW Stop: 10/26/19 05:59 Last Admin: 09/17/19 17:51 Dose: Not Given Haloperidol (Haldol) 3 mg PO BID [facility]; Protocol Stop: 11/12/19 16:59 Last Admin: 09/17/19 16:35 Dose: 3 mg Haloperidol Decanoate (Haldol Dec) 50 mg IM QMONTH [facility]; Protocol Stop: 11/14/19 12:44 Last Admin: 09/15/19 18:40 Dose: 50 mg Haloperidol Lactate (Haldol) 2 mg IM BID PRN PRN Reason: Agitation if refused po haldol Stop: 11/11/19 09:55 Last Admin: 09/12/19 11:21 Dose: 2 mg Hydralazine HCl (Apresoline) 50 mg PO Q6HR PRN PRN Reason: if SBP > 160 or DBP > 100 Stop: 10/26/19 20:03 Ibuprofen (Advil) 200 mg PO Q6HR PRN PRN Reason: Pain (Mild 1-3) Stop: 10/26/19 04:20 Lorazepam (Ativan) 0.5 mg PO Q4HR PRN; Protocol PRN Reason: agitation Stop: 09/26/19 04:29 Magnesium Hydroxide (Milk Of Magnesia) 30 ml PO HS PRN PRN Reason: Constipation Stop: 10/26/19 04:20 Multi-Ingredient Cream (Eucerin Cream) 1 appl TP BID [facility] Stop: 10/30/19 16:59 Last Admin: 09/17/19 17:51 Dose: Not Given Nortriptyline HCl (Pamelor) 25 mg PO DAILY [facility] Stop: 10/26/19 08:59 Last Admin: 09/17/19 08:48 Dose: Not Given Pantoprazole Sodium (Protonix) 40 mg PO 0630 [facility] Stop: 10/27/19 06:29 Last Admin: 09/16/19 06:41 Dose: Not Given Sodium Phosphate (Fleet Enema) 135 ml RC Q48HR PRN PRN Reason: If MOM & Dulcolax ineffective. Stop: 10/26/19 04:20 Zolpidem Tartrate (Ambien) 5 mg PO HSMR1 PRN PRN Reason: Insomnia Stop: 10/26/19 04:29
[2019-09-18] MEDS: Pantoprazole 40 mg EC Tab PO SCH (06:33)
--- NOTE | 2019-09-18 07:40 | Progress Notes ---
DATE: 09/18/2019 SUBJECTIVE: The patient in the hospital, still really upset, anxious, still with yelling episodes, still agitated, delusional, angry, hostile, labile. Currently on Haldol Decanoate. PLAN: We will continue to monitor. We are also working on a safe disposition plan. JOB# [id number]
[2019-09-18] MEDS: Eucerin Cream 16 oz Jar TP SCH ×2 (08:40→16:32)
[2019-09-18] MEDS: Venelex 60gm Tube TP SCH (08:40)
--- NOTE | 2019-09-18 11:35 | Internal Medicine Prog Note ---
Internal Medicine Subjective - Subjective Patient is:: awake, verbal, agitated, confused Patient Complaints of:: other Per staff patient has:: no adverse event, no episodes of fall, confused, refusing care, other (still angry and refuses medications) Internal Medicine Objective - Physical Exam Vitals and I&O: Vital Signs Temp 97.6 F 09/18/19 05:45 Pulse 79 09/18/19 05:45 Resp 19 09/18/19 05:45 BP 140/78 09/18/19 05:45 Pulse Ox 96 09/18/19 05:45 Intake & Output 09/17/19 09/18/19 09/18/19 18:59 06:59 18:59 Intake Total 900 360 Balance 900 360 Intake: Oral 900 360 Other: # Voids 4 1 # Bowel Movements 0 0 Active Medications: Current Medications Al Hydrox/Mg Hydrox/Simethicone (Maalox) 30 ml PO Q4HR PRN PRN Reason: GI DISTRESS Stop: 10/26/19 04:29 Bisacodyl (Dulcolax 10 Mg Supp) 10 mg RC DAILY PRN PRN Reason: IF MOM INEFFECTIVE Stop: 10/26/19 19:58 [place] Oil/Vincentian Balsam/Trypsin (Venelex) 1 appl TP DAILY MATHEW Stop: 11/13/19 15:59 Last Admin: 09/18/19 08:40 Dose: 1 appl Diphenhydramine HCl (Benadryl 50 Mg/Ml) 25 mg IM BID PRN PRN Reason: Psychosis Stop: 11/11/19 10:00 Last Admin: 09/12/19 11:21 Dose: 25 mg Docusate Sodium (Colace) 200 mg PO DAILY MATHEW Stop: 10/26/19 08:59 Last Admin: 09/18/19 08:41 Dose: Not Given Gabapentin (Neurontin) 200 mg PO Q6HR MATHEW Stop: 10/26/19 05:59 Last Admin: 09/18/19 06:33 Dose: Not Given Haloperidol (Haldol) 3 mg PO BID MATHEW; Protocol Stop: 11/12/19 16:59 Last Admin: 09/18/19 08:41 Dose: 3 mg Haloperidol Decanoate (Haldol Dec) 50 mg IM QMONTH MATHEW; Protocol Stop: 11/14/19 12:44 Last Admin: 09/15/19 18:40 Dose: 50 mg Haloperidol Lactate (Haldol) 2 mg IM BID PRN PRN Reason: Agitation if refused po haldol Stop: 11/11/19 09:55 Last Admin: 09/12/19 11:21 Dose: 2 mg Hydralazine HCl (Apresoline) 50 mg PO Q6HR PRN PRN Reason: if SBP > 160 or DBP > 100 Stop: 10/26/19 20:03 Ibuprofen (Advil) 200 mg PO Q6HR PRN PRN Reason: Pain (Mild 1-3) Stop: 10/26/19 04:20 Lorazepam (Ativan) 0.5 mg PO Q4HR PRN; Protocol PRN Reason: agitation Stop: 09/26/19 04:29 Magnesium Hydroxide (Milk Of Magnesia) 30 ml PO HS PRN PRN Reason: Constipation Stop: 10/26/19 04:20 Multi-Ingredient Cream (Eucerin Cream) 1 appl TP BID MATHEW Stop: 10/30/19 16:59 Last Admin: 09/18/19 08:40 Dose: 1 appl Nortriptyline HCl (Pamelor) 25 mg PO DAILY MATHEW Stop: 10/26/19 08:59 Last Admin: 09/18/19 08:42 Dose: 25 mg Pantoprazole Sodium (Protonix) 40 mg PO 0630 MATHEW Stop: 10/27/19 06:29 Last Admin: 09/18/19 06:33 Dose: Not Given Sodium Phosphate (Fleet Enema) 135 ml RC Q48HR PRN PRN Reason: If MOM & Dulcolax ineffective. Stop: 10/26/19 04:20 Zolpidem Tartrate (Ambien) 5 mg PO HSMR1 PRN PRN Reason: Insomnia Stop: 10/26/19 04:29 General: demented, NAD HEENT: NC/AT, PERRLA Neck: Supple, No JVD Lungs: other (no acute respiratory distress on RA) Cardiovascular: RRR Abdomen: soft, non-tender, non-distended Extremities: clear Neurological: no change Internal Medicine Assmt/Plan - Assessment Assessment: Schizoprenia Delusional Paraplegia HTN Neuropathy GERD Anemia - Plan Plan: Continue current treatment plan. Continue current medications Continue to monitor VS Monitor Diet/Nutritional support. Psych management per Psychiatry. Pain Management. PT/OT prn Safety precaution, Fall precaution, frequent nursing round. Supportive care. Continue collaborating with consulting specialists, case management and nursing team Wound care as needed Nutritional Asmnt/Malnutr-PDOC - Dietary Evaluation Malnutrition Findings (Please click <Entered> for more info): Nutritional Asmnt/Malnutrition Start: 08/31/19 14: 01 Text: Status: Complete Freq: Protocol: Document 08/31/19 14:01 CAROLYN (Rec: 08/31/19 14:09 CAROLYN [email or web address]) Nutritional Asmnt/Malnutrition Patient General Information Nutritional Screening Moderate Risk Diagnosis Psychosis Pertinent Medical Hx/Surgical Hx GERD, Paraplegia, Neuropathy, Anemia, HTN Subjective Information Pt is a 74-year-old female admitted on d/t increased agitation and refusal of care. Pt is eating an estimated 53% (average) of meals since admit date (x4 days) Per Meal/Nutrition Activity Record. Dietary is currently providing an estimated 2200 kcals and 115 gm Pro, per Pt PO intake this is providing an estimated 1166 kcals and 60gm Pro to meet 70 % kcal and 92% Pro needs. Visited pt in room after lunch , pt ate 100% of lunch and stated she was pleased with the food. She asked about salt on her tray, I provided education on her diet and why we are not putting salt on her tray. Pt stated she has not gotten her dentures yet, but the chopped texture we have been providing her is sufficient and she has no issues eating. Anthropometrics HT: 58 WT: 188 LB (85.45 kg) ABW:145 LB (65.68 kg) IBW: 130 LB (59.18 kg), IBW-7% for paraplegia BMI: 28.66 (Overweight) GI/ Skin Integrity GI: Soft, Non-tender, GERD BM: 08/30 x1 I/O: 1320/Not Noted Skin: Dryness, Area of Concern , LT lower leon x3 scabs, RT abdominal fold open area [place]: 13 Diet Order: Cardiac Estimated Energy Needs: ( Geriatric, ABW, Paraplegic) 6410-7124 kcals (25-28 kcals/ kg) 65-80g Pro (1.0-1.2 g/kg) 4466-1937 ml (25-30 ml/kg) Current Diet Order/ Nutrition Support Cardiac Pertinent Medications Dulcolax (PRN), Colace, MOM ( PRN), Protonix, Fleet Enema ( PRN) Pertinent Labs 08/26: Glucose 138, Alb 3.3, Tags 184, Chol 303, LDL 208, HDL 48 Nutritional Hx/Data Height 5 ft 8 in Height (Calculated Centimeters) 172.7 Current Weight (lbs) 188 lb Weight (Calculated Kilograms) 85.3 Weight (Calculated Grams) 13736.4 [place] Body Weight 130 LB (59.18 kg) % [place] Body Weight 145 Body Mass Index (BMI) 28.5 Weight Status Overweight GI Symptoms GI Symptoms None Last BM 08/30 x1 Skin Integrity/Comment: Skin: Dryness, Area of Concern , LT lower [place]on x3 scabs, RT abdominal fold open area [place]: 13 Current %PO Fair (50-74%) Estimated Nutritional Goals BEE in Kcals: Using Current wt Calories/Kcals/Kg 25-28 Kcals Calculated 2806-6415 Protein: Using Current wt Protein g/k.0-1.2 Protein Calculated 65-80 Fluid: ml 8958-5414 ml (25-30 ml/kg) Nutritional Problem 1. Problem Problem Altered nutrition related labs Etiology r/t pathophysiological causes Signs/Symptoms: aeb labs (08/26) Glucose 138, Alb 3.3, Tags 184, Chol 303, LDL 208, HDL 48 and Diet Rx Cardiac. Intervention/Recommendation Comments Continue Cardiac diet as tolerated. Expected Outcomes/Goals Expected Outcomes/Goals 1.PO intake to continue to meet 75% of estimated nutritional needs. 2.Monitor PO intake, wt, nutrition related labs, and skin integrity to trend WNL. 3.F/U as low risk in 7-10 days , 09/07-09/10
[2019-09-19] MEDS: Pantoprazole 40 mg EC Tab PO SCH (06:38)
[2019-09-19] MEDS: Venelex 60gm Tube TP SCH (08:32)
[2019-09-19] MEDS: Eucerin Cream 16 oz Jar TP SCH ×2 (08:32→16:24)
--- NOTE | 2019-09-19 12:36 | Internal Medicine Prog Note ---
Internal Medicine Subjective - Subjective Service Date: 09/19/19 Patient seen and examined:: with staff Patient is:: awake, verbal, agitated, confused Patient Complaints of:: other Per staff patient has:: no adverse event, no episodes of fall, confused, refusing care, other (still angry and refuses medications) Internal Medicine Objective - Physical Exam Vitals and I&O: Vital Signs Temp 98.1 F 09/19/19 06:18 Pulse 91 09/19/19 06:18 Resp 18 09/19/19 06:18 BP 125/75 09/19/19 06:18 Pulse Ox 98 09/19/19 06:18 Intake & Output 09/18/19 09/19/19 09/19/19 18:59 06:59 18:59 Intake Total 240 Output Total 1 Balance 239 Intake: Oral 240 Output: Urine/Stool Mix 1 Other: # Voids 3 # Bowel Movements 0 Active Medications: Current Medications Al Hydrox/Mg Hydrox/Simethicone (Maalox) 30 ml PO Q4HR PRN PRN Reason: GI DISTRESS Stop: 10/26/19 04:29 Bisacodyl (Dulcolax 10 Mg Supp) 10 mg RC DAILY PRN PRN Reason: IF MOM INEFFECTIVE Stop: 10/26/19 19:58 [place] Oil/[place] Balsam/Trypsin (Venelex) 1 appl TP DAILY MATHEW Stop: 11/13/19 15:59 Last Admin: 09/19/19 08:32 Dose: 1 appl Diphenhydramine HCl (Benadryl 50 Mg/Ml) 25 mg IM BID PRN PRN Reason: Psychosis Stop: 11/11/19 10:00 Last Admin: 09/12/19 11:21 Dose: 25 mg Docusate Sodium (Colace) 200 mg PO DAILY MATHEW Stop: 10/26/19 08:59 Last Admin: 09/19/19 08:32 Dose: 200 mg Gabapentin (Neurontin) 200 mg PO Q6HR MATHEW Stop: 10/26/19 05:59 Last Admin: 09/19/19 12:01 Dose: Not Given Haloperidol (Haldol) 3 mg PO BID MATHEW; Protocol Stop: 11/12/19 16:59 Last Admin: 09/19/19 08:32 Dose: 3 mg Haloperidol Decanoate (Haldol Dec) 50 mg IM QMONTH MATHEW; Protocol Stop: 11/14/19 12:44 Last Admin: 09/15/19 18:40 Dose: 50 mg Haloperidol Lactate (Haldol) 2 mg IM BID PRN PRN Reason: Agitation if refused po haldol Stop: 11/11/19 09:55 Last Admin: 09/12/19 11:21 Dose: 2 mg Hydralazine HCl (Apresoline) 50 mg PO Q6HR PRN PRN Reason: if SBP > 160 or DBP > 100 Stop: 10/26/19 20:03 Ibuprofen (Advil) 200 mg PO Q6HR PRN PRN Reason: Pain (Mild 1-3) Stop: 10/26/19 04:20 Lorazepam (Ativan) 0.5 mg PO Q4HR PRN; Protocol PRN Reason: agitation Stop: 09/26/19 04:29 Magnesium Hydroxide (Milk Of Magnesia) 30 ml PO HS PRN PRN Reason: Constipation Stop: 10/26/19 04:20 Multi-Ingredient Cream (Eucerin Cream) 1 appl TP BID [facility] Stop: 10/30/19 16:59 Last Admin: 09/19/19 08:32 Dose: 1 appl Nortriptyline HCl (Pamelor) 25 mg PO DAILY [facility] Stop: 10/26/19 08:59 Last Admin: 09/19/19 08:32 Dose: 25 mg Pantoprazole Sodium (Protonix) 40 mg PO 0630 [facility] Stop: 10/27/19 06:29 Last Admin: 09/19/19 06:38 Dose: Not Given Sodium Phosphate (Fleet Enema) 135 ml RC Q48HR PRN PRN Reason: If MOM & Dulcolax ineffective. Stop: 10/26/19 04:20 Zolpidem Tartrate (Ambien) 5 mg PO HSMR1 PRN PRN Reason: Insomnia Stop: 10/26/19 04:29 Physical Exam: Patient needs to be closely monitored, patient is still very hostile towards staff, very upset continues to yell and scream. General: demented, NAD HEENT: NC/AT, PERRLA Neck: Supple, No JVD Lungs: other (no acute respiratory distress on RA) Cardiovascular: RRR Abdomen: soft, non-tender, non-distended Extremities: clear Neurological: no change Internal Medicine Assmt/Plan - Assessment Assessment: Paranoia. Schizophrenia. Delusional. Increased Agitation. History of Bipolar disorder. History of Depression. History of Paraplegia. History of Neuropathy. History of Anemia. History of Gerd. - Plan Plan: Psych management as per Psych. Continue present meds as directed. Monitor vitals and labs. Pain management. Monitor diet and nutritional support. Fall precaution. Continue current treatment plan as ordered. Nutritional Asmnt/Malnutr-PDOC - Dietary Evaluation Malnutrition Findings (Please click <Entered> for more info): Nutritional Asmnt/Malnutrition Start: 08/31/19 14: 01 Text: Status: Complete Freq: Protocol: Document 08/31/19 14:01 CAROLYN (Rec: 08/31/19 14:09 CAROLYN [email or web address]) Nutritional Asmnt/Malnutrition Patient General Information Nutritional Screening Moderate Risk Diagnosis Psychosis Pertinent Medical Hx/Surgical Hx GERD, Paraplegia, Neuropathy, Anemia, HTN Subjective Information Pt is a 74-year-old female admitted on d/t increased agitation and refusal of care. Pt is eating an estimated 53% (average) of meals since admit date (x4 days) Per Meal/Nutrition Activity Record. Dietary is currently providing an estimated 2200 kcals and 115 gm Pro, per Pt PO intake this is providing an estimated 1166 kcals and 60gm Pro to meet 70 % kcal and 92% Pro needs. Visited pt in room after lunch , pt ate 100% of lunch and stated she was pleased with the food. She asked about salt on her tray, I provided education on her diet and why we are not putting salt on her tray. Pt stated she has not gotten her dentures yet, but the chopped texture we have been providing her is sufficient and she has no issues eating. Anthropometrics HT: 58 WT: 188 LB (85.45 kg) ABW:145 LB (65.68 kg) IBW: 130 LB (59.18 kg), IBW-7% for paraplegia BMI: 28.66 (Overweight) GI/ Skin Integrity GI: Soft, Non-tender, GERD BM: 08/30 x1 I/O: 1320/Not Noted Skin: Dryness, Area of Concern , LT lower [place] x3 scabs, RT abdominal fold open area [place]: 13 Diet Order: Cardiac Estimated Energy Needs: ( Geriatric, ABW, Paraplegic) 8817-5265 kcals (25-28 kcals/ kg) 65-80g Pro (1.0-1.2 g/kg) 9765-8967 ml (25-30 ml/kg) Current Diet Order/ Nutrition Support Cardiac Pertinent Medications Dulcolax (PRN), Colace, MOM ( PRN), Protonix, Fleet Enema ( PRN) Pertinent Labs 08/26: Glucose 138, Alb 3.3, Tags 184, Chol 303, LDL 208, HDL 48 Nutritional Hx/Data Height 1.73 m Height (Calculated Centimeters) 172.7 Current Weight (lbs) 85.275 kg Weight (Calculated Kilograms) 85.3 Weight (Calculated Grams) 91265.4 [place] Body Weight 130 LB (59.18 kg) % [place] Body Weight 145 Body Mass Index (BMI) 28.5 Weight Status Overweight GI Symptoms GI Symptoms None Last BM 08/30 x1 Skin Integrity/Comment: Skin: Dryness, Area of Concern , LT lower [place] x3 scabs, RT abdominal fold open area [place]: 13 Current %PO Fair (50-74%) Estimated Nutritional Goals BEE in Kcals: Using Current wt Calories/Kcals/Kg 25-28 Kcals Calculated 0416-8550 Protein: Using Current wt Protein g/k.0-1.2 Protein Calculated 65-80 Fluid: ml 9911-0424 ml (25-30 ml/kg) Nutritional Problem 1. Problem Problem Altered nutrition related labs Etiology r/t pathophysiological causes Signs/Symptoms: aeb labs (08/26) Glucose 138, Alb 3.3, Tags 184, Chol 303, LDL 208, HDL 48 and Diet Rx Cardiac. Intervention/Recommendation Comments Continue Cardiac diet as tolerated. Expected Outcomes/Goals Expected Outcomes/Goals 1.PO intake to continue to meet 75% of estimated nutritional needs. 2.Monitor PO intake, wt, nutrition related labs, and skin integrity to trend WNL. 3.F/U as low risk in 7-10 days , 09/07-09/10
[2019-09-19 16:02] VITALS: BP 130/73
--- NOTE | 2019-09-20 03:17 | Progress Notes ---
DATE: 09/19/2019 SUBJECTIVE: The patient in the hospital, still upset, agitated, stating she needs to leave, go pay the rent, likely approaching her baseline. She is a lot less aggressive. Generally calmer, does not escalates quickly. I am pending a safe disposition plan. We will coordinate care with [employer]. It is unclear where the patient is going to live. JOB# [id number]
[2019-09-20] MEDS: Pantoprazole 40 mg EC Tab PO SCH (06:52)
[2019-09-20] MEDS: Eucerin Cream 16 oz Jar TP SCH ×2 (08:58→16:54)
[2019-09-20] MEDS: Venelex 60gm Tube TP SCH (08:58)
--- NOTE | 2019-09-20 15:46 | Internal Medicine Prog Note ---
Internal Medicine Subjective - Subjective Service Date: 09/20/19 Patient is:: awake, verbal, agitated, confused Patient Complaints of:: other Per staff patient has:: no adverse event, no episodes of fall, confused, refusing care, other (still angry and refuses medications) Internal Medicine Objective - Physical Exam Vitals and I&O: Vital Signs Temp 96.9 F 09/20/19 13:45 Pulse 90 09/20/19 13:45 Resp 18 09/20/19 13:45 BP 148/81 09/20/19 13:45 Pulse Ox 97 09/20/19 13:45 Intake & Output 09/19/19 09/20/19 09/20/19 18:59 06:59 18:59 Intake Total 1220 120 Balance 1220 120 Intake: Oral 980 120 Other 240 Other: # Voids 3 3 # Bowel Movements 1 0 Active Medications: Current Medications Al Hydrox/Mg Hydrox/Simethicone (Maalox) 30 ml PO Q4HR PRN PRN Reason: GI DISTRESS Stop: 10/26/19 04:29 Bisacodyl (Dulcolax 10 Mg Supp) 10 mg RC DAILY PRN PRN Reason: IF MOM INEFFECTIVE Stop: 10/26/19 19:58 [place] Oil/[place] Balsam/Trypsin (Venelex) 1 appl TP DAILY MATHEW Stop: 11/13/19 15:59 Last Admin: 09/20/19 08:58 Dose: 1 appl Diphenhydramine HCl (Benadryl 50 Mg/Ml) 25 mg IM BID PRN PRN Reason: Psychosis Stop: 11/11/19 10:00 Last Admin: 09/12/19 11:21 Dose: 25 mg Docusate Sodium (Colace) 200 mg PO DAILY MATHEW Stop: 10/26/19 08:59 Last Admin: 09/20/19 09:01 Dose: Not Given Gabapentin (Neurontin) 200 mg PO Q6HR MATHEW Stop: 10/26/19 05:59 Last Admin: 09/20/19 12:32 Dose: Not Given Haloperidol (Haldol) 3 mg PO BID MATHEW; Protocol Stop: 11/12/19 16:59 Last Admin: 09/20/19 09:02 Dose: 3 mg Haloperidol Decanoate (Haldol Dec) 50 mg IM QMONTH MATHEW; Protocol Stop: 11/14/19 12:44 Last Admin: 09/15/19 18:40 Dose: 50 mg Haloperidol Lactate (Haldol) 2 mg IM BID PRN PRN Reason: Agitation if refused po haldol Stop: 11/11/19 09:55 Last Admin: 09/12/19 11:21 Dose: 2 mg Hydralazine HCl (Apresoline) 50 mg PO Q6HR PRN PRN Reason: if SBP > 160 or DBP > 100 Stop: 10/26/19 20:03 Ibuprofen (Advil) 200 mg PO Q6HR PRN PRN Reason: Pain (Mild 1-3) Stop: 10/26/19 04:20 Lorazepam (Ativan) 0.5 mg PO Q4HR PRN; Protocol PRN Reason: agitation Stop: 09/26/19 04:29 Magnesium Hydroxide (Milk Of Magnesia) 30 ml PO HS PRN PRN Reason: Constipation Stop: 10/26/19 04:20 Multi-Ingredient Cream (Eucerin Cream) 1 appl TP BID MATHEW Stop: 10/30/19 16:59 Last Admin: 09/20/19 08:58 Dose: 1 appl Nortriptyline HCl (Pamelor) 25 mg PO DAILY MATHEW Stop: 10/26/19 08:59 Last Admin: 09/20/19 08:58 Dose: Not Given Pantoprazole Sodium (Protonix) 40 mg PO 0630 MATHEW Stop: 10/27/19 06:29 Last Admin: 09/20/19 06:52 Dose: Not Given Sodium Phosphate (Fleet Enema) 135 ml RC Q48HR PRN PRN Reason: If MOM & Dulcolax ineffective. Stop: 10/26/19 04:20 Zolpidem Tartrate (Ambien) 5 mg PO HSMR1 PRN PRN Reason: Insomnia Stop: 10/26/19 04:29 General: demented, NAD HEENT: NC/AT, PERRLA Neck: Supple, No JVD Lungs: other (no acute respiratory distress on RA) Cardiovascular: RRR Abdomen: soft, non-tender, non-distended Extremities: clear Neurological: no change Internal Medicine Assmt/Plan - Assessment Assessment: Schizoprenia Delusional Paraplegia HTN Neuropathy GERD Anemia - Plan Plan: Continue current treatment plan. Continue current medications Continue to monitor VS Monitor Diet/Nutritional support. Psych management per Psychiatry. Pain Management. PT/OT prn Safety precaution, Fall precaution, frequent nursing round. Supportive care. Continue collaborating with consulting specialists, case management and nursing team Nutritional Asmnt/Malnutr-PDOC - Dietary Evaluation Malnutrition Findings (Please click <Entered> for more info): Nutritional Asmnt/Malnutrition Start: 08/31/19 14: 01 Text: Status: Complete Freq: Protocol: Document 08/31/19 14:01 KALYANIRACHELLENUNU (Rec: 08/31/19 14:09 KALYANIRACHELLENUNU [email or web address]) Nutritional Asmnt/Malnutrition Patient General Information Nutritional Screening Moderate Risk Diagnosis Psychosis Pertinent Medical Hx/Surgical Hx GERD, Paraplegia, Neuropathy, Anemia, HTN Subjective Information Pt is a 74-year-old female admitted on d/t increased agitation and refusal of care. Pt is eating an estimated 53% (average) of meals since admit date (x4 days) Per Meal/Nutrition Activity Record. Dietary is currently providing an estimated 2200 kcals and 115 gm Pro, per Pt PO intake this is providing an estimated 1166 kcals and 60gm Pro to meet 70 % kcal and 92% Pro needs. Visited pt in room after lunch , pt ate 100% of lunch and stated she was pleased with the food. She asked about salt on her tray, I provided education on her diet and why we are not putting salt on her tray. Pt stated she has not gotten her dentures yet, but the chopped texture we have been providing her is sufficient and she has no issues eating. Anthropometrics HT: 58 WT: 188 LB (85.45 kg) ABW:145 LB (65.68 kg) IBW: 130 LB (59.18 kg), IBW-7% for paraplegia BMI: 28.66 (Overweight) GI/ Skin Integrity GI: Soft, Non-tender, GERD BM: 08/30 x1 I/O: 1320/Not Noted Skin: Dryness, Area of Concern , LT lower [place]on x3 scabs, RT abdominal fold open area [place]: 13 Diet Order: Cardiac Estimated Energy Needs: ( Geriatric, ABW, Paraplegic) 7869-0293 kcals (25-28 kcals/ kg) 65-80g Pro (1.0-1.2 g/kg) 2122-9030 ml (25-30 ml/kg) Current Diet Order/ Nutrition Support Cardiac Pertinent Medications Dulcolax (PRN), Colace, MOM ( PRN), Protonix, Fleet Enema ( PRN) Pertinent Labs 08/26: Glucose 138, Alb 3.3, Tags 184, Chol 303, LDL 208, HDL 48 Nutritional Hx/Data Height 5 ft 8 in Height (Calculated Centimeters) 172.7 Current Weight (lbs) 188 lb Weight (Calculated Kilograms) 85.3 Weight (Calculated Grams) 84554.4 [place] Body Weight 130 LB (59.18 kg) % [place] Body Weight 145 Body Mass Index (BMI) 28.5 Weight Status Overweight GI Symptoms GI Symptoms None Last BM 08/30 x1 Skin Integrity/Comment: Skin: Dryness, Area of Concern , LT lower [place]on x3 scabs, RT abdominal fold open area [place]: 13 Current %PO Fair (50-74%) Estimated Nutritional Goals BEE in Kcals: Using Current wt Calories/Kcals/Kg 25-28 Kcals Calculated 5112-5838 Protein: Using Current wt Protein g/k.0-1.2 Protein Calculated 65-80 Fluid: ml 4902-1559 ml (25-30 ml/kg) Nutritional Problem 1. Problem Problem Altered nutrition related labs Etiology r/t pathophysiological causes Signs/Symptoms: aeb labs (08/26) Glucose 138, Alb 3.3, Tags 184, Chol 303, LDL 208, HDL 48 and Diet Rx Cardiac. Intervention/Recommendation Comments Continue Cardiac diet as tolerated. Expected Outcomes/Goals Expected Outcomes/Goals 1.PO intake to continue to meet 75% of estimated nutritional needs. 2.Monitor PO intake, wt, nutrition related labs, and skin integrity to trend WNL. 3.F/U as low risk in 7-10 days , 09/07-09/10
--- NOTE | 2019-09-20 23:35 | Progress Notes ---
DATE: 09/20/2019 SUBJECTIVE: A 74-year-old female, calmer, not as aggressive, less verbal. We are trying to find her and secure a safe disposition. Currently on Haldol, Haldol Decanoate, somewhat friendly on exam. Delusions dissipating. No medication side effects. JOB# [id number]
[2019-09-21] MEDS: Pantoprazole 40 mg EC Tab PO SCH (06:05)
[2019-09-21] MEDS: Eucerin Cream 16 oz Jar TP SCH ×2 (08:32→17:05)
[2019-09-21] MEDS: Venelex 60gm Tube TP SCH (08:32)
--- NOTE | 2019-09-21 15:13 | Internal Medicine Prog Note ---
Internal Medicine Subjective - Subjective Service Date: 09/21/19 Patient seen and examined:: with staff Patient is:: awake, verbal, agitated, confused Patient Complaints of:: other Per staff patient has:: no adverse event, no episodes of fall, confused, refusing care, other (still angry and refuses medications) Internal Medicine Objective - Physical Exam Vitals and I&O: Vital Signs Temp 98.2 F 09/21/19 14:00 Pulse 96 09/21/19 14:00 Resp 20 09/21/19 14:00 BP 135/76 09/21/19 14:00 Pulse Ox 98 09/21/19 14:00 Intake & Output 09/20/19 09/21/19 09/21/19 18:59 06:59 18:59 Intake Total 120 Balance 120 Intake: Oral 120 Other: # Voids 3 3 # Bowel Movements 2 1 Active Medications: Current Medications Al Hydrox/Mg Hydrox/Simethicone (Maalox) 30 ml PO Q4HR PRN PRN Reason: GI DISTRESS Stop: 10/26/19 04:29 Bisacodyl (Dulcolax 10 Mg Supp) 10 mg RC DAILY PRN PRN Reason: IF MOM INEFFECTIVE Stop: 10/26/19 19:58 [place] Oil/[place] Balsam/Trypsin (Venelex) 1 appl TP DAILY [facility] Stop: 11/13/19 15:59 Last Admin: 09/21/19 08:32 Dose: Not Given Diphenhydramine HCl (Benadryl 50 Mg/Ml) 25 mg IM BID PRN PRN Reason: Psychosis Stop: 11/11/19 10:00 Last Admin: 09/12/19 11:21 Dose: 25 mg Docusate Sodium (Colace) 200 mg PO DAILY MATHEW Stop: 10/26/19 08:59 Last Admin: 09/21/19 08:27 Dose: Not Given Gabapentin (Neurontin) 200 mg PO Q6HR MATHEW Stop: 10/26/19 05:59 Last Admin: 09/21/19 12:31 Dose: Not Given Haloperidol (Haldol) 3 mg PO BID MATHEW; Protocol Stop: 11/12/19 16:59 Last Admin: 09/21/19 08:32 Dose: 3 mg Haloperidol Decanoate (Haldol Dec) 50 mg IM QMONTH [facility]; Protocol Stop: 11/14/19 12:44 Last Admin: 09/15/19 18:40 Dose: 50 mg Haloperidol Lactate (Haldol) 2 mg IM BID PRN PRN Reason: Agitation if refused po haldol Stop: 11/11/19 09:55 Last Admin: 09/12/19 11:21 Dose: 2 mg Hydralazine HCl (Apresoline) 50 mg PO Q6HR PRN PRN Reason: if SBP > 160 or DBP > 100 Stop: 10/26/19 20:03 Ibuprofen (Advil) 200 mg PO Q6HR PRN PRN Reason: Pain (Mild 1-3) Stop: 10/26/19 04:20 Lorazepam (Ativan) 0.5 mg PO Q4HR PRN; Protocol PRN Reason: agitation Stop: 09/26/19 04:29 Magnesium Hydroxide (Milk Of Magnesia) 30 ml PO HS PRN PRN Reason: Constipation Stop: 10/26/19 04:20 Multi-Ingredient Cream (Eucerin Cream) 1 appl TP BID MATHEW Stop: 10/30/19 16:59 Last Admin: 09/21/19 08:32 Dose: Not Given Nortriptyline HCl (Pamelor) 25 mg PO DAILY MATHEW Stop: 10/26/19 08:59 Last Admin: 09/21/19 08:33 Dose: Not Given Pantoprazole Sodium (Protonix) 40 mg PO 0630 MATHEW Stop: 10/27/19 06:29 Last Admin: 09/21/19 06:05 Dose: Not Given Sodium Phosphate (Fleet Enema) 135 ml RC Q48HR PRN PRN Reason: If MOM & Dulcolax ineffective. Stop: 10/26/19 04:20 Zolpidem Tartrate (Ambien) 5 mg PO HSMR1 PRN PRN Reason: Insomnia Stop: 10/26/19 04:29 Physical Exam: Patient is less irritated, less agitated and calmer. General: demented, NAD HEENT: NC/AT, PERRLA Neck: Supple, No JVD Lungs: other (no acute respiratory distress on RA) Cardiovascular: RRR Abdomen: soft, non-tender, non-distended Extremities: clear Neurological: no change Internal Medicine Assmt/Plan - Assessment Assessment: Paranoia. Schizophrenia. Delusional. Increased Agitation. History of Bipolar disorder. History of Depression. History of Paraplegia. History of Neuropathy. History of Anemia. History of Gerd. - Plan Plan: Psych management as per Psych. Continue present meds as directed. Monitor vitals and labs. Pain management. Monitor diet and nutritional support. Fall precaution. Continue current treatment plan as ordered. Nutritional Asmnt/Malnutr-PDOC - Dietary Evaluation Malnutrition Findings (Please click <Entered> for more info): Nutritional Asmnt/Malnutrition Start: 08/31/19 14: 01 Text: Status: Complete Freq: Protocol: Document 08/31/19 14:01 CAROLYN (Rec: 08/31/19 14:09 CAROLYN [email or web address]) Nutritional Asmnt/Malnutrition Patient General Information Nutritional Screening Moderate Risk Diagnosis Psychosis Pertinent Medical Hx/Surgical Hx GERD, Paraplegia, Neuropathy, Anemia, HTN Subjective Information Pt is a 74-year-old female admitted on d/t increased agitation and refusal of care. Pt is eating an estimated 53% (average) of meals since admit date (x4 days) Per Meal/Nutrition Activity Record. Dietary is currently providing an estimated 2200 kcals and 115 gm Pro, per Pt PO intake this is providing an estimated 1166 kcals and 60gm Pro to meet 70 % kcal and 92% Pro needs. Visited pt in room after lunch , pt ate 100% of lunch and stated she was pleased with the food. She asked about salt on her tray, I provided education on her diet and why we are not putting salt on her tray. Pt stated she has not gotten her dentures yet, but the chopped texture we have been providing her is sufficient and she has no issues eating. Anthropometrics HT: 58 WT: 188 LB (85.45 kg) ABW:145 LB (65.68 kg) IBW: 130 LB (59.18 kg), IBW-7% for paraplegia BMI: 28.66 (Overweight) GI/ Skin Integrity GI: Soft, Non-tender, GERD BM: 08/30 x1 I/O: 1320/Not Noted Skin: Dryness, Area of Concern , LT lower [place] x3 scabs, RT abdominal fold open area [place]: 13 Diet Order: Cardiac Estimated Energy Needs: ( Geriatric, ABW, Paraplegic) 2052-5898 kcals (25-28 kcals/ kg) 65-80g Pro (1.0-1.2 g/kg) 6261-1949 ml (25-30 ml/kg) Current Diet Order/ Nutrition Support Cardiac Pertinent Medications Dulcolax (PRN), Colace, MOM ( PRN), Protonix, Fleet Enema ( PRN) Pertinent Labs 08/26: Glucose 138, Alb 3.3, Tags 184, Chol 303, LDL 208, HDL 48 Nutritional Hx/Data Height 1.73 m Height (Calculated Centimeters) 172.7 Current Weight (lbs) 85.275 kg Weight (Calculated Kilograms) 85.3 Weight (Calculated Grams) 70854.4 [place] Body Weight 130 LB (59.18 kg) % [place] Body Weight 145 Body Mass Index (BMI) 28.5 Weight Status Overweight GI Symptoms GI Symptoms None Last BM 08/30 x1 Skin Integrity/Comment: Skin: Dryness, Area of Concern , LT lower [place] x3 scabs, RT abdominal fold open area [place]: 13 Current %PO Fair (50-74%) Estimated Nutritional Goals BEE in Kcals: Using Current wt Calories/Kcals/Kg 25-28 Kcals Calculated 9272-6184 Protein: Using Current wt Protein g/k.0-1.2 Protein Calculated 65-80 Fluid: ml 9658-9603 ml (25-30 ml/kg) Nutritional Problem 1. Problem Problem Altered nutrition related labs Etiology r/t pathophysiological causes Signs/Symptoms: aeb labs (08/26) Glucose 138, Alb 3.3, Tags 184, Chol 303, LDL 208, HDL 48 and Diet Rx Cardiac. Intervention/Recommendation Comments Continue Cardiac diet as tolerated. Expected Outcomes/Goals Expected Outcomes/Goals 1.PO intake to continue to meet 75% of estimated nutritional needs. 2.Monitor PO intake, wt, nutrition related labs, and skin integrity to trend WNL. 3.F/U as low risk in 7-10 days , 09/07-09/10
--- NOTE | 2019-09-22 02:39 | Progress Notes ---
DATE: 09/21/2019 SUBJECTIVE: The patient in the hospital, seems calmer, more cooperative, still refusing care, does not want wound care, prejudiced towards some nurses. She seems to be approaching her baseline, less delusional. No psychotic symptoms that are overt. She is not throwing things or agitated. PLAN: We will err on the side of caution, monitor for further 24 hours. We will attempt to confirm a safe disposition plan. No EPS noted on exam. No side effects. No akathisia. JOB# [id number]
[2019-09-22] MEDS: Pantoprazole 40 mg EC Tab PO SCH (05:45)
[2019-09-22] MEDS: Eucerin Cream 16 oz Jar TP SCH (08:16)
[2019-09-22] MEDS: Venelex 60gm Tube TP SCH (08:16)
--- NOTE | 2019-09-22 13:27 | Internal Medicine Prog Note ---
Internal Medicine Subjective - Subjective Service Date: 09/22/19 Patient is:: awake, verbal, agitated, confused Patient Complaints of:: other Per staff patient has:: no adverse event, no episodes of fall, confused, refusing care, other (still angry and refuses medications) Internal Medicine Objective - Physical Exam Vitals and I&O: Vital Signs Temp 98.2 F 09/22/19 06:00 Pulse 81 09/22/19 06:00 Resp 19 09/22/19 07:58 BP 139/87 09/22/19 06:00 Pulse Ox 97 09/22/19 06:00 Intake & Output 09/21/19 09/22/19 09/22/19 18:59 06:59 18:59 Intake Total 900 120 Balance 900 120 Intake: Oral 900 120 Other: # Voids 3 2 # Bowel Movements 1 0 Active Medications: Current Medications Al Hydrox/Mg Hydrox/Simethicone (Maalox) 30 ml PO Q4HR PRN PRN Reason: GI DISTRESS Stop: 10/26/19 04:29 Bisacodyl (Dulcolax 10 Mg Supp) 10 mg RC DAILY PRN PRN Reason: IF MOM INEFFECTIVE Stop: 10/26/19 19:58 [place] Oil/[place] Balsam/Trypsin (Venelex) 1 appl TP DAILY MATHEW Stop: 11/13/19 15:59 Last Admin: 09/22/19 08:16 Dose: Not Given Diphenhydramine HCl (Benadryl 50 Mg/Ml) 25 mg IM BID PRN PRN Reason: Psychosis Stop: 11/11/19 10:00 Last Admin: 09/12/19 11:21 Dose: 25 mg Docusate Sodium (Colace) 200 mg PO DAILY MATHEW Stop: 10/26/19 08:59 Last Admin: 09/22/19 08:16 Dose: Not Given Gabapentin (Neurontin) 200 mg PO Q6HR [facility]HEW Stop: 10/26/19 05:59 Last Admin: 09/22/19 05:45 Dose: Not Given Haloperidol (Haldol) 3 mg PO BID MATHEW; Protocol Stop: 11/12/19 16:59 Last Admin: 09/22/19 08:16 Dose: 3 mg Haloperidol Decanoate (Haldol Dec) 50 mg IM QMONTH [facility]; Protocol Stop: 11/14/19 12:44 Last Admin: 09/15/19 18:40 Dose: 50 mg Haloperidol Lactate (Haldol) 2 mg IM BID PRN PRN Reason: Agitation if refused po haldol Stop: 11/11/19 09:55 Last Admin: 09/12/19 11:21 Dose: 2 mg Hydralazine HCl (Apresoline) 50 mg PO Q6HR PRN PRN Reason: if SBP > 160 or DBP > 100 Stop: 10/26/19 20:03 Ibuprofen (Advil) 200 mg PO Q6HR PRN PRN Reason: Pain (Mild 1-3) Stop: 10/26/19 04:20 Lorazepam (Ativan) 0.5 mg PO Q4HR PRN; Protocol PRN Reason: agitation Stop: 09/26/19 04:29 Magnesium Hydroxide (Milk Of Magnesia) 30 ml PO HS PRN PRN Reason: Constipation Stop: 10/26/19 04:20 Multi-Ingredient Cream (Eucerin Cream) 1 appl TP BID MATHEW Stop: 10/30/19 16:59 Last Admin: 09/22/19 08:16 Dose: Not Given Nortriptyline HCl (Pamelor) 25 mg PO DAILY [facility]HEW Stop: 10/26/19 08:59 Last Admin: 09/22/19 08:16 Dose: Not Given Pantoprazole Sodium (Protonix) 40 mg PO 0630 MATHEW Stop: 10/27/19 06:29 Last Admin: 09/22/19 05:45 Dose: Not Given Sodium Phosphate (Fleet Enema) 135 ml RC Q48HR PRN PRN Reason: If MOM & Dulcolax ineffective. Stop: 10/26/19 04:20 Zolpidem Tartrate (Ambien) 5 mg PO HSMR1 PRN PRN Reason: Insomnia Stop: 10/26/19 04:29 General: demented, NAD HEENT: NC/AT, PERRLA Neck: Supple, No JVD Lungs: other (no acute respiratory distress on RA) Cardiovascular: RRR Abdomen: soft, non-tender, non-distended Extremities: clear Neurological: no change Internal Medicine Assmt/Plan - Assessment Assessment: Schizoprenia Delusional Paraplegia HTN Neuropathy GERD Anemia - Plan Plan: Continue current treatment plan. Continue current medications Continue to monitor VS Monitor Diet/Nutritional support. Psych management per Psychiatry. Pain Management. PT/OT prn Safety precaution, Fall precaution, frequent nursing round. Supportive care. Continue collaborating with consulting specialists, case management and nursing team Nutritional Asmnt/Malnutr-PDOC - Dietary Evaluation Malnutrition Findings (Please click <Entered> for more info): Nutritional Asmnt/Malnutrition Start: 08/31/19 14: 01 Text: Status: Complete Freq: Protocol: Document 08/31/19 14:01 CAROLYN (Rec: 08/31/19 14:09 CAROLYN [email or web address]) Nutritional Asmnt/Malnutrition Patient General Information Nutritional Screening Moderate Risk Diagnosis Psychosis Pertinent Medical Hx/Surgical Hx GERD, Paraplegia, Neuropathy, Anemia, HTN Subjective Information Pt is a 74-year-old female admitted on d/t increased agitation and refusal of care. Pt is eating an estimated 53% (average) of meals since admit date (x4 days) Per Meal/Nutrition Activity Record. Dietary is currently providing an estimated 2200 kcals and 115 gm Pro, per Pt PO intake this is providing an estimated 1166 kcals and 60gm Pro to meet 70 % kcal and 92% Pro needs. Visited pt in room after lunch , pt ate 100% of lunch and stated she was pleased with the food. She asked about salt on her tray, I provided education on her diet and why we are not putting salt on her tray. Pt stated she has not gotten her dentures yet, but the chopped texture we have been providing her is sufficient and she has no issues eating. Anthropometrics HT: 58 WT: 188 LB (85.45 kg) ABW:145 LB (65.68 kg) IBW: 130 LB (59.18 kg), IBW-7% for paraplegia BMI: 28.66 (Overweight) GI/ Skin Integrity GI: Soft, Non-tender, GERD BM: 08/30 x1 I/O: 1320/Not Noted Skin: Dryness, Area of Concern , LT lower [place] x3 scabs, RT abdominal fold open area [place]: 13 Diet Order: Cardiac Estimated Energy Needs: ( Geriatric, ABW, Paraplegic) 1226-1743 kcals (25-28 kcals/ kg) 65-80g Pro (1.0-1.2 g/kg) 6261-1830 ml (25-30 ml/kg) Current Diet Order/ Nutrition Support Cardiac Pertinent Medications Dulcolax (PRN), Colace, MOM ( PRN), Protonix, Fleet Enema ( PRN) Pertinent Labs 08/26: Glucose 138, Alb 3.3, Tags 184, Chol 303, LDL 208, HDL 48 Nutritional Hx/Data Height 5 ft 8 in Height (Calculated Centimeters) 172.7 Current Weight (lbs) 188 lb Weight (Calculated Kilograms) 85.3 Weight (Calculated Grams) 63631.4 [place] Body Weight 130 LB (59.18 kg) % [place] Body Weight 145 Body Mass Index (BMI) 28.5 Weight Status Overweight GI Symptoms GI Symptoms None Last BM 08/30 x1 Skin Integrity/Comment: Skin: Dryness, Area of Concern , LT lower [place]on x3 scabs, RT abdominal fold open area [place]: 13 Current %PO Fair (50-74%) Estimated Nutritional Goals BEE in Kcals: Using Current wt Calories/Kcals/Kg 25-28 Kcals Calculated 3197-1204 Protein: Using Current wt Protein g/k.0-1.2 Protein Calculated 65-80 Fluid: ml 9233-4539 ml (25-30 ml/kg) Nutritional Problem 1. Problem Problem Altered nutrition related labs Etiology r/t pathophysiological causes Signs/Symptoms: aeb labs (08/26) Glucose 138, Alb 3.3, Tags 184, Chol 303, LDL 208, HDL 48 and Diet Rx Cardiac. Intervention/Recommendation Comments Continue Cardiac diet as tolerated. Expected Outcomes/Goals Expected Outcomes/Goals 1.PO intake to continue to meet 75% of estimated nutritional needs. 2.Monitor PO intake, wt, nutrition related labs, and skin integrity to trend WNL. 3.F/U as low risk in 7-10 days , 09/07-09/10
--- NOTE | 2019-09-22 14:25 | Discharge Summary ---
DATE OF DISCHARGE: 09/22/2019 HISTORY OF PRESENT ILLNESS: A 74-year-old female brought in from a shelter, agitated, aggressive, yelling, screaming, delusional, confused, not making any sounds, disoriented, poor compliance. SOCIAL HISTORY: Living at shelter. States she lives with her . MEDICAL HISTORY: Noted. Please see full H and P. MEDICATIONS: Noted. PROVISIONAL DIAGNOSES: Bipolar per history, concerns for cognitive decline, dementia, dementia with behaviors. Unclear as the patient is really not the best historian, also mood unspecified. HOSPITAL COURSE: After initial assessment, the patient remained agitated, aggressive, was prescribed medications, which she refused. Riese was filed. It was upheld. Medications were given. Transition to a long-acting injectable. Over the course of treatment, she was calmer, not as aggressive, no longer throwing things, cursing less, less paranoid of others. I attempted to do a mental status on her, but was very difficult. She was cursing, yelling and telling me to get lost. I did gather she was disoriented to city, not year, not month, not day of the week, not day, not date. She did not know the season. She does not know the County or the floor she was on. 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 A safe discharge was confirmed. DISCHARGE DIAGNOSES: Bipolar per history, dementia, dementia with behaviors; mood, unspecified; anxiety unspecified. MEDICAL: Please see full H and P. PROGNOSIS: The patient follows up with outpatient mental health services and remains compliant with treatment. Prognosis will improve, otherwise guarded. JOB# [id number]
== END 2019-09-22 17:00 | DRG 884 ==
LOC: GERO 08-27 01:00
PROVIDERS: ADMIT Psychiatry & Neurology Psychiatry; ATTEND Psychiatry & Neurology Psychiatry
DX: F03.91 Unspecified dementia, unspecified severity, with behavioral disturbance (principal); G82.20 Paraplegia, unspecified; F20.9 Schizophrenia, unspecified; F22 Delusional disorders; G62.9 Polyneuropathy, unspecified; K21.9 Gastro-esophageal reflux disease without esophagitis; D64.9 Anemia, unspecified; I10 Essential (primary) hypertension; F31.9 Bipolar disorder, unspecified; F41.9 Anxiety disorder, unspecified; R45.1 Restlessness and agitation; Z88.1 Allergy status to other antibiotic agents
CPT/HCPCS: 83036-90; J1200; J1630; J1631; Z7610